=== PATIENT | female | born 1960 | race Caucasian/White ===

== ENCOUNTER → 2020-11-25 09:13 | Outpatient (BNVA) | payer OTHER, SELFPAY | PROVIDERS: PCP Internal Medicine; Visit Provider Hospitalist | DX: J96.11 Chronic respiratory failure with hypoxia (principal); J43.2 Centrilobular emphysema | CPT/HCPCS: 99202 ==

== ENCOUNTER 2020-12-15 10:55 | Outpatient (REF) | payer OTHER, SELFPAY ==
--- NOTE | 2020-12-15 17:33 | PFT_ITS ---
FLOWS: FEV1 of 29% of predicted at 0.80 L. FVC 19% of predicted at 3.16 L. FEV1 to FVC ratio of 0.25. Positive bronchodilator response. LUNG VOLUMES: Total lung capacity 102% of predicted at 5.47 L. Residual volume 147% of predicted at 3.12 L. Slow vital capacity 72% of predicted at 2.35 L. Expiratory reserve volume 120% of predicted at 1.11 L. Diffusion capacity is severely decreased. IMPRESSION: Very severe obstructive ventilatory defect with positive bronchodilator response. Increased residual volume suggests air trapping. Decreased diffusion capacity suggests emphysema. MD HANNAH Mccormick/MODL / [id number] MTDD
== END 2020-12-15 10:56 | disposition home or self-care (01) ==
LOC: HO.RESP 10:55
PROVIDERS: Visit Provider Hospitalist
DX: J43.2 Centrilobular emphysema (principal); R06.00 Dyspnea, unspecified
CPT/HCPCS: 94060; 94727; 94729

== ENCOUNTER 2020-12-29 13:20 | Outpatient (REF) | payer OTHER, SELFPAY ==
[2020-12-29 14:41] LABS: MANUAL DIFF FLAG NO
[2020-12-29 14:45] LABS: Basophils Absolute Auto 0.1 X10*3/uL (0.0-0.2); Basophils Percent Auto 0.9 % (0-2); Eosinophils Percent Auto 0.4 % (0-4); Hematocrit 43.5 % (37-47); Hemoglobin 14.7 g/dl (12.0-16.0); Imm Gran Abs Auto 0.03 X10*3/uL (0.00-0.03); Imm Gran Pct Auto 0.4 % (0.0-0.4); Lymphocytes Absolute Auto 0.6 X10*3/uL (1.2-4.9); Lymphocytes Percent Auto 7.4 % (20-40); Mean Corpuscular HGB Conc 33.8 g/dl (31.0-35.0); Mean Corpuscular Hemoglobin 33.2 pg (27.0-33.0); Mean Corpuscular Volume 98.2 fL (80-98); Mean Platelet Volume 9.1 fL (9.4-12.3); Monocytes Absolute Auto 0.3 X10*3/uL (0.1-1.2); Monocytes Percent Auto 3.5 % (2-11); Neutrophils Absolute Auto 6.7 X10*3/uL (2.0-8.3); Neutrophils Percent Auto 87.4 % (45-73); Platelet Count 361 X10*3/uL (160-400); Red Blood Count 4.43 X10*6/uL (4.20-5.50); Red Cell Distribution Width 11.9 % (11.0-16.0); White Blood Count 7.7 X10*3/uL (4.8-10.8)
[2020-12-29 15:03] LABS: Anion Gap 15 (12-20); Blood Urea Nitrogen 12 mg/dL (9-16); Carbon Dioxide 25 mmol/L (22-29); Chloride 101 mmol/L (96-108); Estimated Glomerular Filt Rate > 60; Glucose Random 125 mg/dL (60-115); Potassium 4.2 mmol/L (3.3-5.1); Sodium 137 mmol/L (135-145)
[2020-12-29 15:26] LABS: Erythrocyte Sedimentation Rate 1 MM/HR (0-20)
[2020-12-30 06:36] LABS: Theophylline 13.2
== END 2020-12-29 13:21 | disposition home or self-care (01) ==
LOC: HO.LAB 13:20
PROVIDERS: PCP Internal Medicine; Visit Provider Hospitalist
DX: J96.11 Chronic respiratory failure with hypoxia (principal); J43.2 Centrilobular emphysema
CPT/HCPCS: 36415; 80048; 80198; 85025; 85652; 99212

== ENCOUNTER → 2021-02-28 13:12 | Outpatient (BNVA) | payer OTHER, SELFPAY | PROVIDERS: PCP Internal Medicine; Visit Provider Hospitalist | DX: J96.11 Chronic respiratory failure with hypoxia (principal); J43.2 Centrilobular emphysema | CPT/HCPCS: 99212 ==

== ENCOUNTER 2021-03-21 14:08 | Outpatient (REF) | payer OTHER, SELFPAY | END 2021-03-21 14:09 | disposition home or self-care (01) | LOC: HO.LNP 14:08 | PROVIDERS: Visit Provider Hospitalist | DX: J43.2 Centrilobular emphysema (principal) | CPT/HCPCS: 87070; 87205 ==

== ENCOUNTER → 2021-05-02 13:45 | Outpatient (BNVA) | payer OTHER, SELFPAY | PROVIDERS: PCP Internal Medicine; Visit Provider Hospitalist | DX: J96.11 Chronic respiratory failure with hypoxia (principal); J43.2 Centrilobular emphysema | CPT/HCPCS: 90471; 90686; 99212 ==

== ENCOUNTER → 2021-06-22 09:47 | Outpatient (BNVA) | payer OTHER, SELFPAY | PROVIDERS: PCP Internal Medicine; Visit Provider Hospitalist | DX: J96.11 Chronic respiratory failure with hypoxia (principal); J43.2 Centrilobular emphysema; J47.9 Bronchiectasis, uncomplicated | CPT/HCPCS: 94010; 94618; 99212 ==

== ENCOUNTER 2021-06-26 16:38 | Outpatient (REF) | payer OTHER, SELFPAY | END 2021-06-26 16:39 | disposition home or self-care (01) | LOC: HO.LNP 16:38 | PROVIDERS: Visit Provider Hospitalist | DX: J47.9 Bronchiectasis, uncomplicated (principal) | CPT/HCPCS: 87070; 87205 ==

== ENCOUNTER 2021-07-12 10:42 | Outpatient (REF) | payer OTHER, SELFPAY ==
[2021-07-12 12:31] VITALS: O2SAT 95
[2021-07-12 12:48] LABS: ABG Refer to POC result
[2021-07-12 12:51] LABS: ABG pH 7.47 (7.35-7.45)
[2021-07-12 12:52] LABS: ABG Base Excess 0.4 mmol/L; ABG HCO3 23 mmol/L (22-26); ABG pCO2 31 mmHg (32-45); ABG pO2 78 mmHg (83-108)
== END 2021-07-12 10:43 | disposition home or self-care (01) ==
LOC: HO.LAB 10:42
PROVIDERS: PCP Internal Medicine; Visit Provider Hospitalist
DX: J43.2 Centrilobular emphysema (principal); J47.9 Bronchiectasis, uncomplicated; J96.11 Chronic respiratory failure with hypoxia; Z99.81 Dependence on supplemental oxygen; Z79.52 Long term (current) use of systemic steroids; Z87.891 Personal history of nicotine dependence
CPT/HCPCS: 36600; 82803; 96372; 99212; J2930

== ENCOUNTER 2021-07-14 14:22 | Outpatient (REF) | payer OTHER, SELFPAY ==
[2021-07-14 15:09] LABS: Basophils Percent Auto 0.2 % (0-2); Eosinophils Percent Auto 0.1 % (0-4); Hematocrit 47.3 % (37.0-47.0); Imm Gran Abs Auto 0.08 X10*3/uL (0.00-0.03); Imm Gran Pct Auto 0.7 % (0.0-0.4); Lymphocytes Absolute Auto 0.3 X10*3/uL (1.2-4.9); Lymphocytes Percent Auto 2.8 % (20-40); MANUAL DIFF FLAG SCAN; Mean Corpuscular HGB Conc 33.8 g/dl (31.0-35.0); Mean Corpuscular Volume 97.5 fL (80.0-98.0); Mean Platelet Volume 9.3 fL (9.4-12.3); Monocytes Absolute Auto 0.5 X10*3/uL (0.1-1.2); Monocytes Percent Auto 3.7 % (2-11); Neutrophils Absolute Auto 11.4 x10*3/uL (2.0-8.3); Neutrophils Percent Auto 92.5 % (45-73); Platelet Count 450 X10*3/uL (160-400); Red Blood Count 4.85 X10*6/uL (4.20-5.50); Red Cell Distribution Width 12.1 % (11.0-16.0); SCAN SMEAR FLAG 1; White Blood Count 12.3 X10*3/uL (4.8-10.8)
[2021-07-14 15:16] LABS: D Dimer High Sensitivity < 150 NG/ML
[2021-07-14 15:26] LABS: Troponin-I High Sensitivity 5.1 ng/L (<3.5-17.0)
[2021-07-14 15:32] LABS: SLIDE REVIEW VERIFIED
[2021-07-14 15:36] LABS: Anion Gap 17 (12-20); Blood Urea Nitrogen 9 mg/dL (9-16); Calcium 9.9 mg/dL (8.4-10.2); Carbon Dioxide 26 mmol/L (22-29); Chloride 96 mmol/L (96-108); Estimated Glomerular Filt Rate > 60; Glucose Random 175 mg/dL (60-115); Potassium 3.7 mmol/L (3.3-5.1); Sodium 135 mmol/L (135-145)
[2021-07-14 15:43] LABS: Erythrocyte Sedimentation Rate 2 MM/HR (0-20)
== END 2021-07-14 14:23 | disposition home or self-care (01) ==
LOC: HO.LAB 14:22
PROVIDERS: PCP Internal Medicine; Visit Provider Hospitalist
DX: J96.10 Chronic respiratory failure, unspecified whether with hypoxia or hypercapnia (principal)
CPT/HCPCS: 36415; 80048; 84484; 85025; 85379; 85652

== ENCOUNTER 2021-07-17 13:26 | Inpatient (IN) | payer OTHER, SELFPAY ==
--- NOTE | ~2021-07-17 | XR_ITS ---
EXAMINATION: XR CHEST CLINICAL INFORMATION: Shortness of breath COMPARISON: Previous chest x-ray 07/11/2021 TECHNIQUE: Frontal view of the chest was obtained. FINDINGS: The cardiac and mediastinal contours are normal. The lungs are well-inflated suggestive of COPD. There is question of retrosternal atelectasis or small infiltrate seen on the lateral view. The lungs are otherwise clear. There is no pleural effusion or pneumothorax. There are degenerative changes of the spine. There are old bilateral rib fractures that appear unchanged. XR/XR chest 1V IMPRESSION: Well-inflated lungs suggestive of COPD. Question retrosternal atelectasis or small infiltrate seen on the lateral view.
[2021-07-17 14:47] VITALS: BP 163/86; PULSE 121; RESP 17; TEMP 36.3; O2SAT 90; BMI 20.9
--- NOTE | 2021-07-17 14:59 | ECG_ITS ---
Test Reason : SOB Blood Pressure : / mmHG Vent. Rate : 118 BPM Atrial Rate : 118 BPM P-R Int : 136 ms QRS Dur : 078 ms QT Int : 332 ms P-R-T Axes : 078 079 082 degrees QTc Int : 465 ms Sinus tachycardia Cannot rule out Anterior infarct , age undetermined Abnormal ECG No previous ECGs available Referred By: Generic ED Physician Electronically Signed By:LIANA VAUGHAN MD
[2021-07-17 15:31] LABS: Basophils Percent Auto 0.2 % (0-2); Eosinophils Percent Auto 0.1 % (0-4); Hematocrit 48.4 % (37.0-47.0); Hemoglobin 16.8 g/dl (12.0-16.0); Imm Gran Abs Auto 0.09 X10*3/uL (0.00-0.03); Imm Gran Pct Auto 0.8 % (0.0-0.4); Lymphocytes Absolute Auto 0.3 X10*3/uL (1.2-4.9); Lymphocytes Percent Auto 2.2 % (20-40); MANUAL DIFF FLAG SCAN; Mean Corpuscular HGB Conc 34.7 g/dl (31.0-35.0); Mean Corpuscular Hemoglobin 32.9 pg (27.0-33.0); Mean Corpuscular Volume 94.9 fL (80.0-98.0); Mean Platelet Volume 9.3 fL (9.4-12.3); Monocytes Absolute Auto 0.1 X10*3/uL (0.1-1.2); Neutrophils Percent Auto 95.7 % (45-73); Platelet Count 415 X10*3/uL (160-400); Red Cell Distribution Width 11.6 % (11.0-16.0); SCAN SMEAR FLAG 1; White Blood Count 11.5 X10*3/uL (4.8-10.8)
[2021-07-17 15:46] LABS: Alanine Aminotransferase 13 U/L (0-31); Albumin Level 4.7 g/dL (3.5-5.0); Alkaline Phosphatase 73 U/L (39-117); Anion Gap 16 (12-20); Aspartate Amino Transferase 18 U/L (5-31); Bilirubin Total 0.5 mg/dL (0.0-1.0); Blood Urea Nitrogen 12 mg/dL (9-16); Calcium 10.6 mg/dL (8.4-10.2); Carbon Dioxide 27 mmol/L (22-29); Chloride 96 mmol/L (96-108); Creatinine Clr Calc Pharmacy 66.2; Estimated Glomerular Filt Rate > 60; Glucose Random 168 mg/dL (60-115); Sodium 135 mmol/L (135-145)
[2021-07-17 15:49] LABS: B Type Natriuretic Peptide 10 pg/mL (<100)
[2021-07-17 15:51] LABS: SLIDE REVIEW VERIFIED
--- NOTE | 2021-07-17 17:59 | ED.SOB ---
HPI - SOB/Dyspnea General Chief Complaint: Dyspnea Stated Complaint: diff breathing Source: patient Mode of arrival: ambulatory Limitations: no limitations History of Present Illness HPI Narrative: 61-year-old female presents with COPD exacerbation, increased shortness breath on ambulation, hypoxia at home. Patient has been on antibiotics prescribed by Dr. Cunningham, was on azithromycin every other day Saturday and Saturday, then switched to Levaquin. Patient's symptoms have worsened. MD elicited complaint: shortness of breath and cough Pertinent past history: COPD Onset (ago): month(s) Context: recent illness Timing: constant Severity: moderate Exacerbating factors: lying flat, exertion, movement, coughing and deep breaths Relieving factors: nothing Known history of: COPD and recurrent pneumonia Associated symptoms: cough, wheezing, sputum production, orthopnea and palpitations Treatment prior to arrival: oxygen Related Data Home oxygen amount: 2 liters Home Medications Medication Instructions Recorded Confirmed alendronate 35 mg tablet 35 mg PO QWEEK 11/25/20 07/17/21 amlodipine 10 mg tablet 10 mg PO DAILY 11/25/20 07/17/21 bupropion HCl 300 mg 24 hr tablet, 300 mg PO DAILY 11/25/20 07/17/21 extended release omeprazole 20 mg capsule,delayed 20 mg PO DAILY 11/25/20 07/17/21 release Previous Rx's Medication Instructions Recorded albuterol sulfate 90 mcg/actuation 2 puff INHALATION Q6H PRN 90 Days 03/15/21 aerosol inhaler #3 ea budesonide 0.5 mg/2 mL suspension 0.5 mg (2 mL) INHALATION BID 90 03/15/21 for nebulization Days #360 ml ipratropium 0.5 mg-albuterol 3 mg 3 ml INHALATION QID 90 Days #1080 03/15/21 (2.5 mg base)/3 mL nebulization ml soln theophylline 300 mg 300 mg PO Q12H 90 Days #180 tab 03/15/21 tablet,extended release,12 hr tiotropium bromide 2.5 2 puff INHALATION DAILY 90 Days #3 03/15/21 mcg/actuation mist for inhalation ea prednisone 20 mg tablet See Rx Instructions PO DAILY 10 07/13/21 Days #15 tab Allergies Allergy/AdvReac Type Severity Reaction Status Date / Time No Known Allergies Allergy Verified 07/12/21 11:10 Review of Systems Review of Systems: Constitutional: No Fever, No Chills ENT/Mouth: No sore throat, No Rhinorrhea, No Swallowing Difficulty Eyes: No Eye Pain, No Swelling, No Redness Cardiovascular: No Chest Pain, positive SOB, No Orthopnea, no Edema Respiratory: Positive Cough, positive Sputum, positive Wheezing, positive dyspnea Gastrointestinal: No Nausea, No Vomiting, No Diarrhea, No abdominal Pain, No Hematochezia, No Melena Genitourinary: No Dysuria, No Urinary Frequency, No Hematuria Musculoskeletal: No joint pain, No Myalgias Skin: No Skin Lesions, No rash Neuro: No Weakness, No Numbness, No Dizziness, No Headache Psych: No Anxiety/Panic, No Depression Heme/Lymph: No Bruising, No Lymphadenopathy Endocrine: No Polyuria, No Polydipsia Yes all other systems are reviewed and are negative [facility] Past Medical History Attestation statement: The following information was validated with the patient. Source: old records reviewed Medical History Bronchiectasis Chronic respiratory failure COPD (chronic obstructive pulmonary disease) Social History Social History Alcohol intake: current Alcohol intake frequency: 3 or more drinks per day Alcohol type: beer Patient Tobacco Use Status: Former Tobacco user Tobacco use type: Cigarette Years Smoked: 30 years Use of substances other than those prescribed or required for medical reasons: No Advance Directives: No Advance Directives Information Provided: Yes Physical Exam Vital Signs: Vital Signs: Last Vital Signs Temp 97.4 F 07/17/21 14:47 Pulse 112 H 07/17/21 19:12 Resp 18 07/17/21 19:12 BP 159/90 H 07/17/21 19:12 Pulse Ox 98 07/17/21 19:12 BMI result Body Mass Index 20.9 Appearance: Alert. Oriented X3. Moderate respiratory distress. Eyes: Pupils equal, round and reactive to light. EOMI. Sclera nonicteric. ENT: Pharynx normal. Dry mucous membranes. Neck: Normal inspection. Neck supple. CVS: Tachycardic heart rate and rhythm. Pulses normal. Respiratory: Moderate respiratory distress. Diminished lung sounds throughout with poor air flow, expiratory scattered wheezes Abdomen: Soft and nontender. Skin: Skin warm and dry. Normal skin color. Normal skin turgor. Scarring noted to forehead and bridge of nose from basal cell carcinoma resection. Extremities: No lower extremity edema. Gait well-balanced well coordinated. Neuro: No motor deficit. No sensory deficit. Cranial nerves 2-12 intact Course Course Course Narrative: 61-year-old female presents with COPD exacerbation. This patient has been followed closely by Dr. Cunningham pulmonary, has been on azithromycin Saturday and Saturday and p.o. prednisone on days not taking azithromycin. Symptoms have exacerbated over the past month, patient was switched from azithromycin to Levaquin however does not feel that the Levaquin has helped her shortness of breath and sputum production. I did reach out to Dr. Cunningham, he confirms that she has been failing outpatient treatments. He feels that she could have a component of cor pulmonale and would like her to get an echo. He did look at the chest x-ray that was completed today and compared to her prior and the CT scan that she had at [facility]. Dr. Cunningham not feel that she needs repeat CT scan at time. Order for Solu-Medrol 125 mg, albuterol hour long updraft, ceftriaxone, and 2 L of fluid for suspected dehydration as H&H is elevated along with white count. 19:45 discussion with hospitalist, plan of care is to admit for COPD exacerbation and pneumonia. Consultations Consultation #1: servando Cunningham Time: 18:02 Consultation #2: ann Time: 19:45 MDM - SOB/Dyspnea Differential Diagnosis Differential diagnosis: Likely acute exacerbation of chronic obstructive airways disease, congestive heart failure, pneumonia, asthma with exacerbation, pleural effusion and anemia Medical Records Attestation: I reviewed the patient's medical records. Lab Data Attestation: I reviewed the patient's lab results. Result diagrams: 07/17/21 15:19 07/17/21 15:19 Labs: Lab Results 07/17/21 07/17/21 07/17/21 Range/Units 15:19 15:19 15:19 WBC 11.5 H (4.8-10.8) X10*3/uL RBC 5.10 (4.20-5.50) X10*6/uL Hgb 16.8 H (12.0-16.0) g/dl Hct 48.4 H (37.0-47.0) % MCV 94.9 (80.0-98.0) fL MCH 32.9 (27.0-33.0) pg MCHC 34.7 (31.0-35.0) g/dl RDW 11.6 (11.0-16.0) % Plt Count 415 H (160-400) X10*3/uL MPV 9.3 L (9.4-12.3) fL Immature Gran % (Auto) 0.8 H (0.0-0.4) % Neut % (Auto) 95.7 H (45-73) % Lymph % (Auto) 2.2 L (20-40) % [place] % (Auto) 1.0 L (2-11) % Eos % (Auto) 0.1 (0-4) % Baso % (Auto) 0.2 (0-2) % Lymph # (Auto) 0.3 L (1.2-4.9) X10*3/uL [place] # (Auto) 0.1 (0.1-1.2) X10*3/uL Eos # (Auto) 0.0 (0.0-0.4) X10*3/uL Baso # (Auto) 0.0 (0.0-0.2) X10*3/uL Abs Immat Gran (auto) 0.09 H (0.00-0.03) X10*3/uL Absolute Neuts (auto) 11.0 H (2.0-8.3) x10*3/uL Absolute Nucleated RBC 0.000 (0.0-0.012) X10*3/uL Nucleated RBC % (auto) 0.0 (0.0-0.2) /100WBC Smear Tech's Comments VERIFIED Sodium 135 (135-145) mmol/L Potassium 4.0 (3.3-5.1) mmol/L Chloride 96 (96-108) mmol/L Carbon Dioxide 27 (22-29) mmol/L Anion Gap 16 (12-20) BUN 12 (9-16) mg/dL Creatinine 0.82 (0.5-1.4) mg/dL Estim Creat Clear Calc 66.2 Estimated GFR > 60 Random Glucose 168 H (60-115) mg/dL Lactic Acid (0.5-2.0) mmol/L Calcium 10.6 H D (8.4-10.2) mg/dL Magnesium (1.6-2.6) mg/dL Total Bilirubin 0.5 (0.0-1.0) mg/dL AST 18 (5-31) U/L ALT 13 (0-31) U/L Alkaline Phosphatase 73 (39-117) U/L Troponin I High Sens (<3.5-17.0) ng/L B-Natriuretic Peptide 10 (<100) pg/mL Total Protein 8.0 (6.5-8.0) g/dL Albumin 4.7 (3.5-5.0) g/dL Influenza Type A (PCR) (Negative) Influenza Type B (PCR) (Negative) RSV RNA Qual (PCR) (Negative) SARS-CoV-2 RNA (RT-PCR) (Negative) 07/17/21 07/17/21 07/17/21 Range/Units 18:52 18:52 18:52 WBC (4.8-10.8) X10*3/uL RBC (4.20-5.50) X10*6/uL Hgb (12.0-16.0) g/dl Hct (37.0-47.0) % MCV (80.0-98.0) fL MCH (27.0-33.0) pg MCHC (31.0-35.0) g/dl RDW (11.0-16.0) % Plt Count (160-400) X10*3/uL MPV (9.4-12.3) fL Immature Gran % (Auto) (0.0-0.4) % Neut % (Auto) (45-73) % Lymph % (Auto) (20-40) % [place] % (Auto) (2-11) % Eos % (Auto) (0-4) % Baso % (Auto) (0-2) % Lymph # (Auto) (1.2-4.9) X10*3/uL [place] # (Auto) (0.1-1.2) X10*3/uL Eos # (Auto) (0.0-0.4) X10*3/uL Baso # (Auto) (0.0-0.2) X10*3/uL Abs Immat Gran (auto) (0.00-0.03) X10*3/uL Absolute Neuts (auto) (2.0-8.3) x10*3/uL Absolute Nucleated RBC (0.0-0.012) X10*3/uL Nucleated RBC % (auto) (0.0-0.2) /100WBC Smear Tech's Comments Sodium (135-145) mmol/L Potassium (3.3-5.1) mmol/L Chloride (96-108) mmol/L Carbon Dioxide (22-29) mmol/L Anion Gap (12-20) BUN (9-16) mg/dL Creatinine (0.5-1.4) mg/dL Estim Creat Clear Calc Estimated GFR Random Glucose (60-115) mg/dL Lactic Acid 2.2 H* (0.5-2.0) mmol/L Calcium (8.4-10.2) mg/dL Magnesium 2.0 (1.6-2.6) mg/dL Total Bilirubin (0.0-1.0) mg/dL AST (5-31) U/L ALT (0-31) U/L Alkaline Phosphatase (39-117) U/L Troponin I High Sens 5.0 (<3.5-17.0) ng/L B-Natriuretic Peptide (<100) pg/mL Total Protein (6.5-8.0) g/dL Albumin (3.5-5.0) g/dL Influenza Type A (PCR) (Negative) Influenza Type B (PCR) (Negative) RSV RNA Qual (PCR) (Negative) SARS-CoV-2 RNA (RT-PCR) (Negative) 07/17/21 Range/Units 19:16 WBC (4.8-10.8) X10*3/uL RBC (4.20-5.50) X10*6/uL Hgb (12.0-16.0) g/dl Hct (37.0-47.0) % MCV (80.0-98.0) fL MCH (27.0-33.0) pg MCHC (31.0-35.0) g/dl RDW (11.0-16.0) % Plt Count (160-400) X10*3/uL MPV (9.4-12.3) fL Immature Gran % (Auto) (0.0-0.4) % Neut % (Auto) (45-73) % Lymph % (Auto) (20-40) % [place] % (Auto) (2-11) % Eos % (Auto) (0-4) % Baso % (Auto) (0-2) % Lymph # (Auto) (1.2-4.9) X10*3/uL [place] # (Auto) (0.1-1.2) X10*3/uL Eos # (Auto) (0.0-0.4) X10*3/uL Baso # (Auto) (0.0-0.2) X10*3/uL Abs Immat Gran (auto) (0.00-0.03) X10*3/uL Absolute Neuts (auto) (2.0-8.3) x10*3/uL Absolute Nucleated RBC (0.0-0.012) X10*3/uL Nucleated RBC % (auto) (0.0-0.2) /100WBC Smear Tech's Comments Sodium (135-145) mmol/L Potassium (3.3-5.1) mmol/L Chloride (96-108) mmol/L Carbon Dioxide (22-29) mmol/L Anion Gap (12-20) BUN (9-16) mg/dL Creatinine (0.5-1.4) mg/dL Estim Creat Clear Calc Estimated GFR Random Glucose (60-115) mg/dL Lactic Acid (0.5-2.0) mmol/L Calcium (8.4-10.2) mg/dL Magnesium (1.6-2.6) mg/dL Total Bilirubin (0.0-1.0) mg/dL AST (5-31) U/L ALT (0-31) U/L Alkaline Phosphatase (39-117) U/L Troponin I High Sens (<3.5-17.0) ng/L B-Natriuretic Peptide (<100) pg/mL Total Protein (6.5-8.0) g/dL Albumin (3.5-5.0) g/dL Influenza Type A (PCR) NEGATIVE (Negative) Influenza Type B (PCR) NEGATIVE (Negative) RSV RNA Qual (PCR) NEGATIVE (Negative) SARS-CoV-2 RNA (RT-PCR) NEGATIVE (Negative) Imaging Data Chest x-ray: Attestation: I personally reviewed and interpreted this imaging study as follows: Radiologist's impression: EXAMINATION: XR CHEST CLINICAL INFORMATION: Shortness of breath COMPARISON: Previous chest x-ray 07/11/2021 TECHNIQUE: Frontal view of the chest was obtained. FINDINGS: The cardiac and mediastinal contours are normal. The lungs are well-inflated suggestive of COPD. There is question of retrosternal atelectasis or small infiltrate seen on the lateral view. The lungs are otherwise clear. There is no pleural effusion or pneumothorax. There are degenerative changes of the spine. There are old bilateral rib fractures that appear unchanged. XR/XR chest 1V IMPRESSION: Well-inflated lungs suggestive of COPD. Question retrosternal atelectasis or small infiltrate seen on the lateral view. ECG Data Attestation: I personally reviewed and interpreted this ECG as follows: ECG interpretation date: 07/17/21 ECG interpretation time: 15:02 Prior ECG tracings: not available for review Interpretation: Vent. rate 118 BPM [place] interval 136 ms QRS duration 78 ms QT/QTc 332/465 ms P-R-T axes 78 79 82 Sinus tachycardia Cannot rule out Anterior infarct , age undetermined Abnormal ECG No previous ECGs available Critical Care Time Critical Care Time Critical Care Time: Yes Total Critical Care Time: 45 Attestation: I have personally provided critical care time exclusive of time spent on separately billable procedures. Time includes review of laboratory data, radiology results, discussion with consultants, and monitoring for potential decompensation. Interventions were performed as documented. Discharge Plan Discharge Clinical Impression: Acute exacerbation of chronic obstructive airways disease, Pneumonia Patient Disposition: Admitted As Inpatient
[2021-07-17 18:00] VITALS: BP 196/101; PULSE 104; RESP 18; O2SAT 96
[2021-07-17] MEDS: Albuterol Sulfate (0.083%) 2.5 MG/3 ML VIAL.NEB 10 MG INHALE (18:20)
[2021-07-17 18:21] VITALS: PULSE 98; RESP 20; O2SAT 97
[2021-07-17] MEDS: methylPREDNISolone Sod Succ 125 MG/2 ML VIAL IVPUSH (19:11)
[2021-07-17] MEDS: cefTRIAXone sodium 1 GM in 0.9 % Sodium Chloride 50 ML IV (19:11)
[2021-07-17 19:12] VITALS: BP 159/90; PULSE 112; RESP 18; O2SAT 98
[2021-07-17 19:12] LABS: Lactic Acid 2.2 mmol/L (0.5-2.0)
[2021-07-17] MEDS: 0.9 % Sodium Chloride 1,000 ML 999 ML IVCONT ×2 (19:12→21:05)
[2021-07-17 19:59] LABS: Influenza A PCR NEGATIVE (Negative); Influenza B PCR NEGATIVE (Negative); Resp Syncy Virus RNA Qual PCR NEGATIVE (Negative); SARS COV2 PCR INHOUSE NEGATIVE (Negative)
--- NOTE | 2021-07-17 20:29 | PHA.MEDREC ---
Pharmacy Consult ? Medication Reconciliation Pharmacy has completed the medication reconciliation. spoke with pt. was on azithromycin MWF but stopped it appx 3 weeks ago while was on other antibiotics doxycycline and levaquin
[2021-07-17 20:55] LABS: Reflex Lactate? Lactic Acid Added
[2021-07-17] MEDS: Enoxaparin Sodium 40 MG/0.4 ML SYRINGE SUBCUT (21:10)
[2021-07-17 21:28] LABS: ~Lactic Acid-LAB USE ONLY 1.9 mmol/L (0.5-2.0)
--- NOTE | 2021-07-17 22:20 | PM.IMHP ---
History of Present Illness Date of Service: 07/17/21 Chief Complaint: SOB 61-year-old female with a past medical history of hypertension, osteoporosis, COPD, chronic respiratory failure on 2 L of home oxygen intermittently/on exertion; anxiety, depression; presented to the hospital today with a chief complaint of shortness of breath. Patient reports that over the past 1 month she has been having shortness of breath which has been gradually worsening more so on exertion. Has been following with Dr. Cunningham as outpatient who has been giving her steroids, also finished course of Levaquin and doxycycline with no significant improvement. And over the past 1-2 years she has been having shortness of breath even with minimal exertion and has been using more oxygen than her baseline hence decided to come to the ER for further evaluation. Patient reports that she takes azithromycin on Saturday, also on chronic prednisone. Denies any chest pain or palpitations. Reports cough with greenish sputum. Denies any fevers. Denies any numbness tingling or focal weakness. Denies any chest pain or palpitations. Review of all other systems is negative except mentioned above ER course: Per ER team-patient reported to be saturating in 80s on room air upon arrival by the EMS; on presentation noted to have diminished lung sounds; placed on supplemental oxygen; given a nebulizations and steroids. Patient was also given antibiotics for possible pneumonia the chest x-ray. Admitted to the hospital for further management. [facility] Medical History Bronchiectasis Chronic respiratory failure COPD (chronic obstructive pulmonary disease) Pertinent family history: Reviewed Social History Alcohol intake: current Alcohol intake frequency: 3 or more drinks per day Alcohol type: beer Patient Tobacco Use Status: Former Tobacco user Tobacco use type: Cigarette Years Smoked: 30 years Use of substances other than those prescribed or required for medical reasons: No Advance Directives: No Advance Directives Information Provided: Yes Meds Allergies Allergy/AdvReac Type Severity Reaction Status Date / Time No Known Allergies Allergy Verified 07/12/21 11:10 Active Medications: Current Medications Acetaminophen (Acetaminophen 325 Mg Tablet) 650 mg PO Q6H PRN PRN Reason: Pain, Mild (Pain Scale 1-3) Albuterol/Ipratropium (Albuterol/Iprat 2.5/0.5mg 3 Ml Ampul.Neb) 3 ml INHALE RQ4H WHILE AWAKE [facility] Last Admin: 07/17/21 20:17 Dose: Not Given Documented by: Albuterol/Ipratropium (Albuterol/Iprat 2.5/0.5mg 3 Ml Ampul.Neb) 3 ml INHALE Q4H PRN PRN Reason: Shortness of Breath/Wheezing Amlodipine Besylate (Amlodipine Besylate 10 Mg Tablet) 10 mg PO DAILY [facility]; Protocol Bupropion HCl (Bupropion Hcl Xl 300 Mg Tab.Er.24h) 300 mg PO DAILY [facility] Enoxaparin Sodium (Enoxaparin Sodium 40 Mg/0.4 Ml Syringe) 40 mg SUBCUT Q24H [facility] Last Admin: 07/17/21 21:10 Dose: 40 mg Documented by: Ceftriaxone Sodium 1 gm/ (Sodium Chloride) 100 mls @ 200 mls/hr IV Q24H [facility] Doxycycline Hyclate 100 mg/ (Sodium Chloride) 250 mls @ 166.67 mls/hr IV Q12H [facility] Last Admin: 07/17/21 21:10 Dose: 166.67 mls/hr Documented by: Melatonin (Melatonin 3 Mg Tablet) 6 mg PO BEDTIME PRN PRN Reason: Insomnia Methylprednisolone Sodium Succinate (Methylprednisolone Sod Succ 40 Mg/Ml Vial) 40 mg IVPUSH Q6H [facility] Omeprazole (Omeprazole 20 Mg Capsule.Dr) 20 mg PO DAILY@0630 [facility] Senna (Sennosides 8.6 Mg Tablet) 17.2 mg PO BEDTIME PRN PRN Reason: Constipation Sodium Chloride (0.9 % Sodium Chloride Flush 3 Ml Syringe) 3 ml IVFLUSH QSHIFT [facility] Theophylline (Theophylline Anhydrous Er 300 Mg Tab.Er.12h) 300 mg PO Q12H [facility] Home Medications Medication Instructions Recorded Confirmed Last Taken Type alendronate 35 mg tablet 35 mg PO QWEEK 11/25/20 07/17/21 07/16/21 History amlodipine 10 mg tablet 10 mg PO DAILY 11/25/20 07/17/21 Unknown History bupropion HCl 300 mg 24 hr tablet, 300 mg PO DAILY 11/25/20 07/17/21 Unknown History extended release omeprazole 20 mg capsule,delayed 20 mg PO DAILY 11/25/20 07/17/21 Unknown History release Physical Exam Vital Signs and Narrative: Vital Signs: Last Vital Signs Temp 97.4 F 07/17/21 14:47 Pulse 112 H 07/17/21 19:12 Resp 18 07/17/21 19:12 BP 159/90 H 07/17/21 19:12 Pulse Ox 98 07/17/21 19:12 BMI result Body Mass Index 20.9 Gen: Appears be in no acute distress. On supplemental oxygen. Saturating 94-96% on 1-2 L. spoke to RN to give the goal saturation at 94%. Speaks in full sentences HEENT: NCAT, Moist mucosa. Pulmonary: Diminished breath sounds bilaterally CVS: Normal S1-S2 Abdomen: BS+, Soft, Nontender Extremities: Warm well perfused Neuro: Alert and awake. Results Labs CBC and Chem 7: 07/17/21 15:19 07/17/21 15:19 Labs: Laboratory Results - last 24 hr 07/17/21 07/17/21 07/17/21 15:19 15:19 15:19 MCV 94.9 MCH 32.9 MCHC 34.7 RDW 11.6 Plt Count 415 H MPV 9.3 L Immature Gran % (Auto) 0.8 H Neut % (Auto) 95.7 H Lymph % (Auto) 2.2 L [place] % (Auto) 1.0 L Eos % (Auto) 0.1 Baso % (Auto) 0.2 Lymph # (Auto) 0.3 L [place] # (Auto) 0.1 Eos # (Auto) 0.0 Baso # (Auto) 0.0 Abs Immat Gran (auto) 0.09 H Absolute Neuts (auto) 11.0 H Absolute Nucleated RBC 0.000 Nucleated RBC % (auto) 0.0 Smear Tech's Comments VERIFIED Anion Gap 16 Estim Creat Clear Calc 66.2 Estimated GFR > 60 Random Glucose 168 H Lactic Acid Lactic Acid F/U @ 2Hr Calcium 10.6 H D Magnesium Total Bilirubin 0.5 AST 18 ALT 13 Alkaline Phosphatase 73 B-Natriuretic Peptide 10 Total Protein 8.0 Albumin 4.7 Influenza Type A (PCR) Influenza Type B (PCR) RSV RNA Qual (PCR) SARS-CoV-2 RNA (RT-PCR) 07/17/21 07/17/21 07/17/21 18:52 18:52 19:16 MCV MCH MCHC RDW Plt Count MPV Immature Gran % (Auto) Neut % (Auto) Lymph % (Auto) [place] % (Auto) Eos % (Auto) Baso % (Auto) Lymph # (Auto) [place] # (Auto) Eos # (Auto) Baso # (Auto) Abs Immat Gran (auto) Absolute Neuts (auto) Absolute Nucleated RBC Nucleated RBC % (auto) Smear Tech's Comments Anion Gap Estim Creat Clear Calc Estimated GFR Random Glucose Lactic Acid 2.2 H* Lactic Acid F/U @ 2Hr Calcium Magnesium 2.0 Total Bilirubin AST ALT Alkaline Phosphatase B-Natriuretic Peptide Total Protein Albumin Influenza Type A (PCR) NEGATIVE Influenza Type B (PCR) NEGATIVE RSV RNA Qual (PCR) NEGATIVE SARS-CoV-2 RNA (RT-PCR) NEGATIVE 07/17/21 21:13 MCV MCH MCHC RDW Plt Count MPV Immature Gran % (Auto) Neut % (Auto) Lymph % (Auto) [place] % (Auto) Eos % (Auto) Baso % (Auto) Lymph # (Auto) [place] # (Auto) Eos # (Auto) Baso # (Auto) Abs Immat Gran (auto) Absolute Neuts (auto) Absolute Nucleated RBC Nucleated RBC % (auto) Smear Tech's Comments Anion Gap Estim Creat Clear Calc Estimated GFR Random Glucose Lactic Acid Lactic Acid F/U @ 2Hr 1.9 Calcium Magnesium Total Bilirubin AST ALT Alkaline Phosphatase B-Natriuretic Peptide Total Protein Albumin Influenza Type A (PCR) Influenza Type B (PCR) RSV RNA Qual (PCR) SARS-CoV-2 RNA (RT-PCR) Imaging Radiologist's Impressions: Impressions Chest X-Ray 07/17/21 15:28 IMPRESSION: Well-inflated lungs suggestive of COPD. Question retrosternal atelectasis or small infiltrate seen on the lateral view. Assessment and Plan Plan 61-year-old female with a past medical history of hypertension, osteoporosis, COPD, chronic respiratory failure on 2 L of home oxygen intermittently/on exertion; anxiety, depression; presented to the hospital today with a chief complaint of shortness of breath/cough with greenish sputum, dyspnea on exertion, hypoxia. Noted to be in COPD exacerbation/pneumonia. Admitted for further management. Acute on chronic COPD exacerbation: Solu-Medrol IV Nebulizations standing and p.r.n. Supplemental oxygen with goal oxygen saturation at 93-94% Patient currently not in respiratory distress. Pulmonology consult with Dr. Octavio Zach D-dimer was negative EKG nonischemic Troponin negative Pneumonia: Patient on chronic steroids at home, failed outpatient antibiotic therapy. Will give the patient on IV vanc and Zosyn. Id consult History of hypertension: Continue home amlodipine History of depression: Continue home probably on DVT prophylaxis: Lovenox Code status: Full code Quality Stroke Does the patient have a stroke diagnosis?: No VTE Prior VTE?: No VTE Risk Level:: Medical - moderate - high VTE Device Contraindication: Treatment Not Indicated VTE Drug Contraindication: N/A - Med Ordered
[2021-07-17 22:25] VITALS: BP 165/96; PULSE 97; RESP 22; O2SAT 96
[2021-07-17] MEDS: Theophylline Anhydrous ER 300 MG TAB.ER.12H PO (22:26)
--- NOTE | 2021-07-17 22:37 | PHA.PROG ---
Admission Date/Time: July 17, 2021 19:44 Indication: COPD excaerbation/PNA Weight in k.967 kg Adjusted body weight in K.1 kg [place] body weight in K.3 kg Obesity Dosing Indication % IBW: N/A Serum Creatinine - Last 168 Hours 07/17/21 15:19 Creatinine 0.82 Estimated CrCl and GFR - Last 168 Hours 07/17/21 15:19 Estim Creat Clear Calc 66.2 Estimated GFR > 60 Vancomycin Loading Dose: 1250 mg Current Vancomycin Dosing Regimen: 750 mg Q12H Date and Time for next Vancomycin Level to be drawn: 07/19 @ 0800 Pharmacist Comments on Vancomycin Plan: Start with vancomycin 1250 mg load dose on 07/17 @ 2230 Maintenance dose vancoymcin 750 mg Q12H will being on 07/18 @ 1000. Expected AUC 523 with a trough of 16.9 Trough to be drawn prior to 3rd dose Pharmacy will monitor renal function daily Kimmy Cook PharmD Vancomycin dosing will take advantage of [employer] as a clinical decision support tool that uses Bayesian modeling to calculate individual patient's pharmacokinetic parameters and forecast the patient's drug concentration time course with the target goal AUC 24 range of 400 - 600 mg/L/hr.
[2021-07-17] MEDS: vancomycin HCL 1,250 MG in 0.9 % Sodium Chloride 250 ML 166.67 MG IV (23:24)
[2021-07-18] VITALS (12 sets, daily range): BP systolic 133–171; BP diastolic 65–93; PULSE 84–104; RESP 14–24; TEMP 36.3–37.3; O2SAT 92–98
[2021-07-18] MEDS: Piperacillin Sodium/Tazobactam 3.375 GM in 0.9 % Sodium Chloride 50 ML IV ×3 (01:03→12:42)
[2021-07-18 01:34] LABS: Appearance Urine CLEAR; Color Urine YELLOW; Glucose Urine UA NEG (NEG); Leukocyte Esterase Urine NEG (NEG); Nitrite Urine NEG (NEG); Urine Blood NEG (NEG); Urine Ketones NEG (NEG); Urine Protein NEG (NEG-TRACE)
[2021-07-18] MEDS: amLODIPine Besylate 10 MG TABLET PO ×2 (04:57→07:17)
--- NOTE | 2021-07-18 04:58 | PC.NURSE ---
PT has become increasingly more hypertensive throughout the night. Hospitalist notified and this RN instructed to give 0900 dose of amlodipine now.
[2021-07-18] MEDS: Omeprazole 20 MG CAPSULE.DR PO (06:16)
[2021-07-18] MEDS: Theophylline Anhydrous ER 300 MG TAB.ER.12H PO ×2 (07:17→20:32)
[2021-07-18] MEDS: methylPREDNISolone Sod Succ 40 MG/ML VIAL IVPUSH ×3 (07:17→20:32)
[2021-07-18] MEDS: buPROPion HCl XL 300 MG TAB.ER.24H PO (07:17)
[2021-07-18 07:57] LABS: Basophils Percent Auto 0.1 % (0-2); Hematocrit 42.1 % (37.0-47.0); Hemoglobin 14.3 g/dl (12.0-16.0); Imm Gran Pct Auto 0.8 % (0.0-0.4); Lymphocytes Absolute Auto 0.4 X10*3/uL (1.2-4.9); Lymphocytes Percent Auto 3.3 % (20-40); MANUAL DIFF FLAG SCAN; Mean Corpuscular Hemoglobin 33.4 pg (27.0-33.0); Mean Corpuscular Volume 98.4 fL (80.0-98.0); Mean Platelet Volume 8.9 fL (9.4-12.3); Monocytes Absolute Auto 0.5 X10*3/uL (0.1-1.2); Monocytes Percent Auto 3.6 % (2-11); Neutrophils Absolute Auto 11.4 x10*3/uL (2.0-8.3); Neutrophils Percent Auto 92.2 % (45-73); Platelet Count 377 X10*3/uL (160-400); Red Blood Count 4.28 X10*6/uL (4.20-5.50); Red Cell Distribution Width 11.9 % (11.0-16.0); SCAN SMEAR FLAG 1; White Blood Count 12.4 X10*3/uL (4.8-10.8)
[2021-07-18] MEDS: Albuterol/Iprat 2.5/0.5MG 3 ML AMPUL.NEB INHALE ×4 (07:58→19:10)
--- NOTE | 2021-07-18 08:06 | PC.NURSE ---
report taken from ismael pastrana resp at bedside for breathing tx, no pain or distress noted on first contact, rr even/unlabored on 1 l. pt self transferred to commode on room air, desat to 86%. briskly back to 95% w rest and 1l. took po meds w/o issue, medicated per emar. ate breakfast. denies cp/sob att. awaiting inpt bed assignment.
[2021-07-18 08:13] LABS: Anion Gap 15 (12-20); Blood Urea Nitrogen 6 mg/dL (9-16); Calcium 8.4 mg/dL (8.4-10.2); Carbon Dioxide 24 mmol/L (22-29); Chloride 100 mmol/L (96-108); Creatinine Clr Calc Pharmacy 74.4; Estimated Glomerular Filt Rate > 60; Glucose Random 141 mg/dL (60-115); Potassium 3.5 mmol/L (3.3-5.1); Sodium 135 mmol/L (135-145)
[2021-07-18 08:20] LABS: SLIDE REVIEW VERIFIED
--- NOTE | 2021-07-18 08:22 | MHC.CM.PN ---
PT REPORTS SHE LIVES AT HOME WITH HER AND IS INDEPENDENT WITH CARE PT HAS HOME OXYGEN AND A NEBULIZER, SHE USES BOTH PRN PT HAS NO HOME/COMMUNITY SERVICES PT CONFIRMS HER PCP IS JUAN ANTONIO BILL PT STATES SHE DOES HAVE A HCP AND HER IS HER AGENT, COPY REQUESTED PT REPORTS SHE HAS RECEIVED THE [employer] VACCINES AGAINST COVID-19 X 3. CURRENT DC PLAN IS HOME WITH NO SERVICES. PT WILL SELF ARRANGE TRANSPORT
--- NOTE | 2021-07-18 09:38 | PM.CNPUL ---
History of Present Illness History of Present Illness Consult date: 07/18/21 Reason for consult: dyspnea, cough, COPD and hypoxemia Chief complaint: Hypoxia Narrative: I have seen this patient this morning for pulmonary consultation and recommendation. She is 61 years old female with advanced chronic obstructive pulmonary disease for the past many years. She presents to the emergency room with the increasing shortness of breath, cough, greenish phlegm, but no fever or chills, along with increased generalized weakness. This patient is on almost maximum treatment at home including, inhaled bronchodilators, inhaled corticosteroids, oral prednisone, azithromycin seen 3 times a week, And oxygen. She has been treated with intermittent courses of broad-spectrum antibiotics. Patient follows up with Dr. Cunningham, last seen on 07/12/2013 , advised to continue her regular meds. Blood gases the on that visit of or as follows pH 7.47 pCO2 31 and PO2 of 78. At home she is on O2 2 L/minute but can increase the flow as she needs. Currently she is on prednisone 7.5 mg on alternate days, azithromycin 250 on Saturday and Saturday, Budesonide 0.5 mg in nebulizer b.i.d., DuoNeb updrafts Q 6 hours while awake, and p.r.n. Recently treated with a course of Levaquin and doxycycline. Patient has history of smoking but quit about 3 years ago. She has associated comorbidities including hypertension, osteoporosis, anxiety and depression. Review of Systems Review of Systems: Yes all other systems are reviewed and are negative Constitutional: Constitutional: Reports lethargy and Reports weight loss Eyes: Eyes: Reports no additional eye complaints ENT: Reports system reviewed and no additional complaints, except as documented Cardiovascular: Cardiovascular: Denies chest pain, Denies irregular heart rhythm and Denies leg edema Respiratory: Respiratory: Reports as per HPI Gastrointestinal: Gastrointestinal: Reports no additional gastrointestinal complaints Genitourinary: Genitourinary: Reports no additional female genitourinary complaints Musculoskeletal: Musculoskeletal: Reports atrophy Integumentary/Breasts: Skin/Breast: Reports system reviewed and no additional complaints, except as docu Neurologic: Reports system reviewed and no additional complaints, except as documented Psychiatric: Psychiatric: Reports anxiety and Reports depression [facility] Past Medical History Medical History Bronchiectasis Chronic respiratory failure COPD (chronic obstructive pulmonary disease) Social History Social History Alcohol intake: current Alcohol intake frequency: 3 or more drinks per day Alcohol type: beer Patient Tobacco Use Status: Former Tobacco user Tobacco use type: Cigarette Years Smoked: 30 years Use of substances other than those prescribed or required for medical reasons: No Advance Directives: No Advance Directives Information Provided: Yes service: No Current occupational status: employed Meds Allergies Allergy/AdvReac Type Severity Reaction Status Date / Time No Known Allergies Allergy Verified 07/12/21 11:10 Active Medications: Current Medications Acetaminophen (Acetaminophen 325 Mg Tablet) 650 mg PO Q6H PRN PRN Reason: Pain, Mild (Pain Scale 1-3) Albuterol/Ipratropium (Albuterol/Iprat 2.5/0.5mg 3 Ml Ampul.Neb) 3 ml INHALE RQ4H WHILE AWAKE [facility] Last Admin: 07/18/21 07:58 Dose: 3 ml Documented by: Albuterol/Ipratropium (Albuterol/Iprat 2.5/0.5mg 3 Ml Ampul.Neb) 3 ml INHALE Q4H PRN PRN Reason: Shortness of Breath/Wheezing Amlodipine Besylate (Amlodipine Besylate 10 Mg Tablet) 10 mg PO DAILY [facility]; Protocol Last Admin: 07/18/21 07:17 Dose: 10 mg Documented by: Bupropion HCl (Bupropion Hcl Xl 300 Mg Tab.Er.24h) 300 mg PO DAILY [facility] Last Admin: 07/18/21 07:17 Dose: 300 mg Documented by: Enoxaparin Sodium (Enoxaparin Sodium 40 Mg/0.4 Ml Syringe) 40 mg SUBCUT Q24H [facility] Last Admin: 07/17/21 21:10 Dose: 40 mg Documented by: Piperacillin Sod/Tazobactam (Sod 3.375 gm/ Sodium Chloride) 50 mls @ 100 mls/hr IV Q6H [facility] Last Infusion: 07/18/21 06:49 Dose: Infused Documented by: Vancomycin HCl 750 mg/ Sodium (Chloride) 265 mls @ 265 mls/hr IV Q12H [facility] Melatonin (Melatonin 3 Mg Tablet) 6 mg PO BEDTIME PRN PRN Reason: Insomnia Methylprednisolone Sodium Succinate (Methylprednisolone Sod Succ 40 Mg/Ml Vial) 40 mg IVPUSH Q6H [facility] Last Admin: 07/18/21 07:17 Dose: 40 mg Documented by: Omeprazole (Omeprazole 20 Mg Capsule.Dr) 20 mg PO DAILY@0630 [facility] Last Admin: 07/18/21 06:16 Dose: 20 mg Documented by: Pharmacy Consult (Consult Rx Vancomycin Dosing) 1 each MISCELLANE DAILY PRN PRN Reason: Consult order Senna (Sennosides 8.6 Mg Tablet) 17.2 mg PO BEDTIME PRN PRN Reason: Constipation Sodium Chloride (0.9 % Sodium Chloride Flush 3 Ml Syringe) 3 ml IVFLUSH QSHIFT [facility] Last Admin: 07/18/21 07:03 Dose: Not Given Documented by: Theophylline (Theophylline Anhydrous Er 300 Mg Tab.Er.12h) 300 mg PO Q12H [facility] Last Admin: 07/18/21 07:17 Dose: 300 mg Documented by: Home Medications Medication Instructions Recorded Confirmed Last Taken Type alendronate 35 mg tablet 35 mg PO QWEEK 11/25/20 07/17/21 07/16/21 History amlodipine 10 mg tablet 10 mg PO DAILY 11/25/20 07/17/21 Unknown History bupropion HCl 300 mg 24 hr tablet, 300 mg PO DAILY 11/25/20 07/17/21 Unknown History extended release omeprazole 20 mg capsule,delayed 20 mg PO DAILY 11/25/20 07/17/21 Unknown History release Physical Exam Vital Signs: Vital Signs: Last Vital Signs Temp 98.2 F 07/18/21 04:40 Pulse 97 07/18/21 08:38 Resp 14 07/18/21 08:38 BP 135/67 07/18/21 08:38 Pulse Ox 95 07/18/21 08:38 BMI result Body Mass Index 20.9 Const: General: comfortable (But dyspneic during conversation), no acute distress, alert and awake Orientation/consciousness: patient oriented x3 HENMT: Head: Yes normal to inspection General nose exam: No nasal polyps present and No nasal discharge present Face and sinus: Yes sinuses nontender Mouth: oropharynx normal Throat: Yes posterior oropharynx normal Eyes: General: appearance normal, both eyes and all related structures Neck: Neck: Yes normal visual inspection, Yes no lymphadenopathy, Yes trachea midline and Yes no JVD Thyroid: Thyroid normal Chest: Chest palpation & inspection: normal inspection of the chest, normal palpation of entire chest wall and no tenderness Resp: Other: Percussion note hyper-resonant, breath sounds are very distant with prolonged expiratory phase on both sides. There are no audible wheezes rhonchi or crepitations at this time. Cardio: Palpation: normal PMI Rate: regular rate Rhythm: regular rhythm Heart sounds: no gallops and no murmurs GI: Palpation (GI): Soft to palpation, nontender, No hepatosplenomegaly present and no masses Auscultation: normal bowel sounds Back/Spine/Pelvis: Thoracic/Lumbar Spine: thoracic and lumbar spine normal to inspection and thoraco-lumbar ROM limited Skin: General skin exam: no rashes or lesions noted Neuro: General: patient oriented x3 and no focal motor deficits Cranial nerves: Yes CN's II-XII intact bilaterally Extrem: General: Yes normal to inspection, Yes no clubbing, cyanosis or edema and Yes no calf tenderness Psych: Appearance: grossly normal and well kempt Speech and movement: Normal speech and movement present Results Laboratory Findings CBC and BMP: 07/18/21 07:48 07/18/21 07:48 Abnormal lab findings: Abnormal Labs 07/17/21 07/17/21 07/17/21 15:19 15:19 18:52 WBC 11.5 H Hgb 16.8 H Hct 48.4 H MCV MCH Plt Count 415 H MPV 9.3 L Immature Gran % (Auto) 0.8 H Neut % (Auto) 95.7 H Lymph % (Auto) 2.2 L [place] % (Auto) 1.0 L Lymph # (Auto) 0.3 L Abs Immat Gran (auto) 0.09 H Absolute Neuts (auto) 11.0 H BUN Random Glucose 168 H Lactic Acid 2.2 H* Calcium 10.6 H D 07/18/21 07/18/21 07:48 07:48 WBC 12.4 H Hgb Hct MCV 98.4 H MCH 33.4 H Plt Count MPV 8.9 L Immature Gran % (Auto) 0.8 H Neut % (Auto) 92.2 H Lymph % (Auto) 3.3 L [place] % (Auto) Lymph # (Auto) 0.4 L Abs Immat Gran (auto) 0.10 H Absolute Neuts (auto) 11.4 H BUN 6 L Random Glucose 141 H Lactic Acid Calcium Diagnostic Findings Chest x-ray: report reviewed and image reviewed Assessment and Plan (1) Acute exacerbation of chronic obstructive airways disease: Status: Acute This patient does have chronic and advanced chronic obstructive pulmonary disease, She is on maximum medical treatment even at home. Currently she has increased shortness of breath with cough and expectoration, Leukocytosis is due to chronic steroid usage and I do not think it is due to active infection. Recc . Treat for acute exacerbation of COPD, with IV Solu-Medrol 40 mg q.8 hours for 1 or 2 days then, switched to prednisone taper. No need of the antibiotics. Continue her regular regimen as before, 1 she is ready for discharge, discuss with the patient about . short-term pulmonary rehab (2) Bronchiectasis: Status: Acute This patient has radiologic diagnosis of minimal bronchiectasis, which is part of her chronic obstructive pulmonary disease. She is prone to have recurrent respiratory infections, but at this time I do not think she has any active bit bacterial infection. So no need of any broad-spectrum antibiotics. Patient has been on azithromycin 3 days a week and that should be continued, more as an anti-inflammatory agent. Procedures Date of Service Date of Service: 07/18/21
[2021-07-18] MEDS: vancomycin HCL 750 MG in 0.9 % Sodium Chloride 250 ML 265 MG IV (10:03)
--- NOTE | 2021-07-18 12:44 | HO.PM.IMPN ---
Subjective Subjective Date of Service: 07/18/21 Interval History: the patient was seen and evaluated this morning Laying in bed, feels significant improvement since coming into the hospital O2 sat mid 90s on room Reporting dyspnea on exertion, wheezes and coughing No reported other overnight events. Systemic review: No fever, chills or weakness No chest pain, palpitation shortness of breath wheezes and coughing No abdominal pain, nausea or vomiting No urinary symptoms No any rash or wounds Physical Exam Vital Signs: Vital Signs: Last Vital Signs Temp 98.2 F 07/18/21 04:40 Pulse 97 07/18/21 11:35 Resp 20 07/18/21 11:35 BP 145/72 H 07/18/21 10:43 Pulse Ox 93 07/18/21 10:43 BMI result Body Mass Index 20.9 Const: Other: Constitutional : Alert, oriented, not in distress Neck : Normal inspection, Supple Cardiovascular : RRR, S1 S2, no lower extremity edema Respiratory : Fairly decreased bilateral air entry, no crackles, bilateral scattered wheezes Gastrointestinal: soft, lax, Normal bowel sounds, Non tender Skin : Warm, Dry Neurological : Alert & oriented x3, No focal deficit Objective Data Active Medications Acetaminophen (Acetaminophen 325 Mg Tablet) 650 mg PO Q6H PRN PRN Reason: Pain, Mild (Pain Scale 1-3) Albuterol/Ipratropium (Albuterol/Iprat 2.5/0.5mg 3 Ml Ampul.Neb) 3 ml INHALE RQ4H WHILE AWAKE [facility] Last Admin: 07/18/21 11:34 Dose: 3 ml Documented by: BETH Albuterol/Ipratropium (Albuterol/Iprat 2.5/0.5mg 3 Ml Ampul.Neb) 3 ml INHALE Q4H PRN PRN Reason: Shortness of Breath/Wheezing Amlodipine Besylate (Amlodipine Besylate 10 Mg Tablet) 10 mg PO DAILY [facility]; Protocol Last Admin: 07/18/21 07:17 Dose: 10 mg Documented by: SILVINO Bupropion HCl (Bupropion Hcl Xl 300 Mg Tab.Er.24h) 300 mg PO DAILY [facility] Last Admin: 07/18/21 07:17 Dose: 300 mg Documented by: SILVINO Enoxaparin Sodium (Enoxaparin Sodium 40 Mg/0.4 Ml Syringe) 40 mg SUBCUT Q24H [facility] Last Admin: 07/17/21 21:10 Dose: 40 mg Documented by: RUPERTO Piperacillin Sod/Tazobactam (Sod 3.375 gm/ Sodium Chloride) 50 mls @ 100 mls/hr IV Q6H [facility] Last Admin: 07/18/21 12:42 Dose: 100 mls/hr Documented by: SILVINO Vancomycin HCl 750 mg/ Sodium (Chloride) 265 mls @ 265 mls/hr IV Q12H [facility] Last Infusion: 07/18/21 11:11 Dose: 0 mls/hr Documented by: SILVINO Melatonin (Melatonin 3 Mg Tablet) 6 mg PO BEDTIME PRN PRN Reason: Insomnia Methylprednisolone Sodium Succinate (Methylprednisolone Sod Succ 40 Mg/Ml Vial) 40 mg IVPUSH Q6H [facility] Last Admin: 07/18/21 12:42 Dose: 40 mg Documented by: SILVINO Omeprazole (Omeprazole 20 Mg Capsule.Dr) 20 mg PO DAILY@0630 [facility] Last Admin: 07/18/21 06:16 Dose: 20 mg Documented by: RUPERTO Pharmacy Consult (Consult Rx Vancomycin Dosing) 1 each MISCELLANE DAILY PRN PRN Reason: Consult order Senna (Sennosides 8.6 Mg Tablet) 17.2 mg PO BEDTIME PRN PRN Reason: Constipation Sodium Chloride (0.9 % Sodium Chloride Flush 3 Ml Syringe) 3 ml IVFLUSH QSHIFT [facility] Last Admin: 07/18/21 07:03 Dose: Not Given Documented by: SILVINO Non-Admin Reason: Med Not Available Theophylline (Theophylline Anhydrous Er 300 Mg Tab.Er.12h) 300 mg PO Q12H [facility] Last Admin: 07/18/21 07:17 Dose: 300 mg Documented by: SILVINO Labs CBC & Chem 7: 07/18/21 07:48 07/18/21 07:48 Labs: Laboratory Results - last 24 hr 07/17/21 07/17/21 07/17/21 15:19 15:19 15:19 MCV 94.9 MCH 32.9 MCHC 34.7 RDW 11.6 Plt Count 415 H MPV 9.3 L Immature Gran % (Auto) 0.8 H Neut % (Auto) 95.7 H Lymph % (Auto) 2.2 L [place] % (Auto) 1.0 L Eos % (Auto) 0.1 Baso % (Auto) 0.2 Lymph # (Auto) 0.3 L [place] # (Auto) 0.1 Eos # (Auto) 0.0 Baso # (Auto) 0.0 Abs Immat Gran (auto) 0.09 H Absolute Neuts (auto) 11.0 H Absolute Nucleated RBC 0.000 Nucleated RBC % (auto) 0.0 Smear Tech's Comments VERIFIED Anion Gap 16 Estim Creat Clear Calc 66.2 Estimated GFR > 60 Random Glucose 168 H Lactic Acid Lactic Acid F/U @ 2Hr Calcium 10.6 H D Magnesium Total Bilirubin 0.5 AST 18 ALT 13 Alkaline Phosphatase 73 B-Natriuretic Peptide 10 Total Protein 8.0 Albumin 4.7 Urine Color Urine Appearance Urine pH Ur Specific [place] Urine Protein Urine Glucose (UA) Urine Ketones Urine Blood Urine Nitrite Ur Leukocyte Esterase Influenza Type A (PCR) Influenza Type B (PCR) RSV RNA Qual (PCR) SARS-CoV-2 RNA (RT-PCR) 07/17/21 07/17/21 07/17/21 18:52 18:52 19:16 MCV MCH MCHC RDW Plt Count MPV Immature Gran % (Auto) Neut % (Auto) Lymph % (Auto) [place] % (Auto) Eos % (Auto) Baso % (Auto) Lymph # (Auto) [place] # (Auto) Eos # (Auto) Baso # (Auto) Abs Immat Gran (auto) Absolute Neuts (auto) Absolute Nucleated RBC Nucleated RBC % (auto) Smear Tech's Comments Anion Gap Estim Creat Clear Calc Estimated GFR Random Glucose Lactic Acid 2.2 H* Lactic Acid F/U @ 2Hr Calcium Magnesium 2.0 Total Bilirubin AST ALT Alkaline Phosphatase B-Natriuretic Peptide Total Protein Albumin Urine Color Urine Appearance Urine pH Ur Specific [place] Urine Protein Urine Glucose (UA) Urine Ketones Urine Blood Urine Nitrite Ur Leukocyte Esterase Influenza Type A (PCR) NEGATIVE Influenza Type B (PCR) NEGATIVE RSV RNA Qual (PCR) NEGATIVE SARS-CoV-2 RNA (RT-PCR) NEGATIVE 07/17/21 07/18/21 07/18/21 21:13 01:25 07:48 MCV 98.4 H MCH 33.4 H MCHC 34.0 RDW 11.9 Plt Count 377 MPV 8.9 L Immature Gran % (Auto) 0.8 H Neut % (Auto) 92.2 H Lymph % (Auto) 3.3 L [place] % (Auto) 3.6 Eos % (Auto) 0.0 Baso % (Auto) 0.1 Lymph # (Auto) 0.4 L [place] # (Auto) 0.5 Eos # (Auto) 0.0 Baso # (Auto) 0.0 Abs Immat Gran (auto) 0.10 H Absolute Neuts (auto) 11.4 H Absolute Nucleated RBC 0.000 Nucleated RBC % (auto) 0.0 Smear Tech's Comments VERIFIED Anion Gap Estim Creat Clear Calc Estimated GFR Random Glucose Lactic Acid Lactic Acid F/U @ 2Hr 1.9 Calcium Magnesium Total Bilirubin AST ALT Alkaline Phosphatase B-Natriuretic Peptide Total Protein Albumin Urine Color YELLOW Urine Appearance CLEAR Urine pH 6.0 Ur Specific [place] 1.020 Urine Protein NEG Urine Glucose (UA) NEG Urine Ketones NEG Urine Blood NEG Urine Nitrite NEG Ur Leukocyte Esterase NEG Influenza Type A (PCR) Influenza Type B (PCR) RSV RNA Qual (PCR) SARS-CoV-2 RNA (RT-PCR) 07/18/21 07:48 MCV MCH MCHC RDW Plt Count MPV Immature Gran % (Auto) Neut % (Auto) Lymph % (Auto) [place] % (Auto) Eos % (Auto) Baso % (Auto) Lymph # (Auto) [place] # (Auto) Eos # (Auto) Baso # (Auto) Abs Immat Gran (auto) Absolute Neuts (auto) Absolute Nucleated RBC Nucleated RBC % (auto) Smear Tech's Comments Anion Gap 15 Estim Creat Clear Calc 74.4 Estimated GFR > 60 Random Glucose 141 H Lactic Acid Lactic Acid F/U @ 2Hr Calcium 8.4 D Magnesium Total Bilirubin AST ALT Alkaline Phosphatase B-Natriuretic Peptide Total Protein Albumin Urine Color Urine Appearance Urine pH Ur Specific [place] Urine Protein Urine Glucose (UA) Urine Ketones Urine Blood Urine Nitrite Ur Leukocyte Esterase Influenza Type A (PCR) Influenza Type B (PCR) RSV RNA Qual (PCR) SARS-CoV-2 RNA (RT-PCR) Assessment and Plan (1) Acute exacerbation of chronic obstructive airways disease: Status: Acute (2) Bronchiectasis: Status: Acute Plan 61-year-old female with a past medical history of hypertension, osteoporosis, COPD, chronic respiratory failure on 2 L of home oxygen intermittently/on exertion; anxiety, depression; presented to the hospital today with a chief complaint of shortness of breath/cough with greenish sputum, dyspnea on exertion, hypoxia. Noted to be in COPD exacerbation/pneumonia. Admitted for further management. Acute on chronic COPD exacerbation: Improving Solu-Medrol IV q.8 Nebulizations standing and p.r.n. Supplemental oxygen with goal oxygen saturation at 93-94% Patient currently not in respiratory distress. Pulmonology consult, consider pulmonary rehab, Solu-Medrol Q 8 then tapering dose at discharge History of bronchiectasis Received antibiotic recently No signs of sepsis ID consulted Pulmonology recommended discontinue IV antibiotics and resume home azithromycin History of hypertension Continue home amlodipine History of depression Continue home probably on DVT prophylaxis: Lovenox Code status: Full code Quality Stroke Does the patient have a stroke diagnosis?: No VTE Prior VTE?: No VTE Risk Level:: Medical - moderate - high VTE Device Contraindication: Treatment Not Indicated VTE Drug Contraindication: N/A - Med Ordered
--- NOTE | 2021-07-18 12:45 | PC.NURSE ---
medicated further per emar, awaiting lunch, in no obvious distress. denies cp or sob at rest in stretcher. rr even/unlabored on 1l nc.
[2021-07-18] MEDS: Azithromycin 250 MG TABLET PO (15:25)
--- NOTE | 2021-07-18 16:07 | P.CNID_ITS ---
History of Present Illness Data of Consult Service Date: 07/18/21 Requesting physician: Rupert Fraser Primary Care Provider: MD MARY ANN Lama Reason for consult: shortness of breath She presents with shortness of breath for last week worsening. She has no fever or chills. She has received Zpack and Levaquin Review of Systems Review of Systems: Yes all other systems are reviewed and are negative [facility] Past Medical History Medical History (Updated 08/01/21 @ 20:01 by Zach Cunningham MD) Abnormal chest x-ray Bronchiectasis Chronic respiratory failure COPD (chronic obstructive pulmonary disease) Dyspnea Family History Family history: reviewed and not pertinent Social History Social History Household Members: Family Housing: House Do you presently have visiting nurse or other home services: No Alcohol intake: current Alcohol intake frequency: 3 or more drinks per day Alcohol type: beer Patient Tobacco Use Status: Former Tobacco user Tobacco use type: Cigarette Years Smoked: 30 years service: No Current occupational status: employed Meds Allergies Allergy/AdvReac Type Severity Reaction Status Date / Time No Known Allergies Allergy Verified 08/01/21 13:50 Active Medications: Current Medications Acetaminophen (Acetaminophen 325 Mg Tablet) 650 mg PO Q6H PRN PRN Reason: Pain, Mild (Pain Scale 1-3) Albuterol/Ipratropium (Albuterol/Iprat 2.5/0.5mg 3 Ml Ampul.Neb) 3 ml INHALE RQ4H WHILE AWAKE [facility] Last Admin: 07/18/21 15:35 Dose: 3 ml Documented by: Albuterol/Ipratropium (Albuterol/Iprat 2.5/0.5mg 3 Ml Ampul.Neb) 3 ml INHALE Q4H PRN PRN Reason: Shortness of Breath/Wheezing Amlodipine Besylate (Amlodipine Besylate 10 Mg Tablet) 10 mg PO DAILY [facility]; Protocol Last Admin: 07/18/21 07:17 Dose: 10 mg Documented by: Azithromycin (Azithromycin 250 Mg Tablet) 250 mg PO Q48H [facility] Last Admin: 07/18/21 15:25 Dose: 250 mg Documented by: Bupropion HCl (Bupropion Hcl Xl 300 Mg Tab.Er.24h) 300 mg PO DAILY [facility] Last Admin: 07/18/21 07:17 Dose: 300 mg Documented by: Enoxaparin Sodium (Enoxaparin Sodium 40 Mg/0.4 Ml Syringe) 40 mg SUBCUT Q24H [facility] Last Admin: 07/17/21 21:10 Dose: 40 mg Documented by: Melatonin (Melatonin 3 Mg Tablet) 6 mg PO BEDTIME PRN PRN Reason: Insomnia Methylprednisolone Sodium Succinate (Methylprednisolone Sod Succ 40 Mg/Ml Vial) 40 mg IVPUSH Q8H [facility] Last Admin: 07/18/21 12:48 Dose: Not Given Documented by: Omeprazole (Omeprazole 20 Mg Capsule.Dr) 20 mg PO DAILY@0630 [facility] Last Admin: 07/18/21 06:16 Dose: 20 mg Documented by: Pharmacy Consult (Consult Rx Vancomycin Dosing) 1 each MISCELLANE DAILY PRN PRN Reason: Consult order Senna (Sennosides 8.6 Mg Tablet) 17.2 mg PO BEDTIME PRN PRN Reason: Constipation Sodium Chloride (0.9 % Sodium Chloride Flush 3 Ml Syringe) 3 ml IVFLUSH QSHIFT [facility] Last Admin: 07/18/21 15:24 Dose: Not Given Documented by: Theophylline (Theophylline Anhydrous Er 300 Mg Tab.Er.12h) 300 mg PO Q12H [facility] Last Admin: 07/18/21 07:17 Dose: 300 mg Documented by: Home Medications Medication Instructions Recorded Confirmed Last Taken Type alendronate 35 mg tablet 35 mg PO QWEEK 11/25/20 07/17/21 07/16/21 History amlodipine 10 mg tablet 10 mg PO DAILY 11/25/20 07/17/21 Unknown History bupropion HCl 300 mg 24 hr tablet, 300 mg PO DAILY 11/25/20 07/17/21 Unknown History extended release omeprazole 20 mg capsule,delayed 20 mg PO DAILY 11/25/20 07/17/21 Unknown Hist ory release Physical Exam Vital Signs: Vital Signs: Last Vital Signs Temp 98.2 F 07/18/21 04:40 Pulse 101 H 07/18/21 15:34 Resp 24 H 07/18/21 15:34 BP 144/74 H 07/18/21 14:10 Pulse Ox 93 07/18/21 14:10 BMI result Body Mass Index 20.9 Const: General: cooperative HENMT: Head: Yes normal to inspection Mouth: Normal oral and palatal mucosa present Resp: Other: slt increased work of breathing Cardio: Rate: regular rate Rhythm: regular rhythm GI: Palpation (GI): Soft to palpation and nontender Extrem: General: Yes normal to inspection Results Labs CBC & Chem 7: 07/18/21 07:48 07/19/21 08:04 Labs: Short CBC 07/18/21 Range/Units 07:48 WBC 12.4 H (4.8-10.8) X10*3/uL Hgb 14.3 (12.0-16.0) g/dl Hct 42.1 (37.0-47.0) % Plt Count 377 (160-400) X10*3/uL BMP 07/18/21 07:48 Sodium 135 Potassium 3.5 Chloride 100 Carbon Dioxide 24 BUN 6 L Creatinine 0.73 Calcium 8.4 D Urine 07/18/21 Range/Units 01:25 Urine Color YELLOW Urine Appearance CLEAR Urine pH 6.0 (5.0-8.0) Ur Specific Fraser 1.020 (1.005-1.025) Urine Protein NEG (NEG-TRACE) MG/DL Urine Glucose (UA) NEG (NEG) MG/DL Assessment and Plan (1) Acute exacerbation of chronic obstructive airways disease: Status: Acute Patient may have acute exacerbation COPD She has received treatment for many pathogens including atypicals with Levaquin and Zmax (2) Bronchiectasis: Status: Acute Plan Continue Zithromax intermittently po per Pulmonary
[2021-07-18] MEDS: Enoxaparin Sodium 40 MG/0.4 ML SYRINGE SUBCUT (20:32)
[2021-07-18] MEDS: 0.9 % Sodium Chloride Flush 3 ML SYRINGE IVFLUSH (20:32)
[2021-07-19] VITALS (7 sets, daily range): BP systolic 147–170; BP diastolic 72–87; PULSE 82–98; RESP 16–20; TEMP 36.7–37.3; O2SAT 92–96
[2021-07-19] MEDS: methylPREDNISolone Sod Succ 40 MG/ML VIAL IVPUSH ×3 (05:46→20:53)
[2021-07-19] MEDS: Omeprazole 20 MG CAPSULE.DR PO (05:47)
[2021-07-19] MEDS: Albuterol/Iprat 2.5/0.5MG 3 ML AMPUL.NEB INHALE ×2 (07:48→12:04)
[2021-07-19] MEDS: Theophylline Anhydrous ER 300 MG TAB.ER.12H PO ×2 (08:29→20:53)
[2021-07-19] MEDS: buPROPion HCl XL 300 MG TAB.ER.24H PO (08:29)
[2021-07-19] MEDS: 0.9 % Sodium Chloride Flush 3 ML SYRINGE IVFLUSH ×3 (08:30→20:54)
[2021-07-19 08:52] LABS: Anion Gap 12 (12-20); Blood Urea Nitrogen 9 mg/dL (9-16); Carbon Dioxide 28 mmol/L (22-29); Chloride 100 mmol/L (96-108); Creatinine Clr Calc Pharmacy 79.8; Estimated Glomerular Filt Rate > 60; Glucose Random 123 mg/dL (60-115); Potassium 3.6 mmol/L (3.3-5.1); Sodium 136 mmol/L (135-145)
[2021-07-19 09:01] LABS: Vancomycin Trough < 3.0 mcg/mL (10.0-20.0)
--- NOTE | 2021-07-19 13:28 | HO.PM.IMPN ---
Subjective Subjective Date of Service: 07/19/21 Interval History: cc: sob intervla hisory: sob on minimal exertion Cardiovascular Cardiovascular: Reports no additional cardiovascular complaints Gastrointestinal Gastrointestinal: Reports no additional gastrointestinal complaints Physical Exam Vital Signs: Vital Signs: Last Vital Signs Temp 99.1 F 07/19/21 11:06 Pulse 88 07/19/21 12:05 Resp 16 07/19/21 12:05 BP 154/78 H 07/19/21 11:06 Pulse Ox 92 07/19/21 11:06 BMI result Body Mass Index 20.9 General: AO X 3, anxious Resp: wheeze bilateral, mild accessory muscles used CVS: S1,S2,RRR GI: soft, non tender, non distended Neuro: motor grossly intact, alert Psych: appropriate affect, appropriate insight Objective Data Active Medications Acetaminophen (Acetaminophen 325 Mg Tablet) 650 mg PO Q6H PRN PRN Reason: Pain, Mild (Pain Scale 1-3) Albuterol/Ipratropium (Albuterol/Iprat 2.5/0.5mg 3 Ml Ampul.Neb) 3 ml INHALE RQ4H WHILE AWAKE [facility] Last Admin: 07/19/21 12:04 Dose: 3 ml Documented by: SYBIL Albuterol/Ipratropium (Albuterol/Iprat 2.5/0.5mg 3 Ml Ampul.Neb) 3 ml INHALE Q4H PRN PRN Reason: Shortness of Breath/Wheezing Amlodipine Besylate (Amlodipine Besylate 10 Mg Tablet) 10 mg PO DAILY [facility]; Protocol Last Admin: 07/18/21 07:17 Dose: 10 mg Documented by: SILVINO Azithromycin (Azithromycin 250 Mg Tablet) 250 mg PO Q48H [facility] Last Admin: 07/18/21 15:25 Dose: 250 mg Documented by: SILVINO Bupropion HCl (Bupropion Hcl Xl 300 Mg Tab.Er.24h) 300 mg PO DAILY [facility] Last Admin: 07/19/21 08:29 Dose: 300 mg Documented by: ROSA Enoxaparin Sodium (Enoxaparin Sodium 40 Mg/0.4 Ml Syringe) 40 mg SUBCUT Q24H [facility] Last Admin: 07/18/21 20:32 Dose: 40 mg Documented by: MALINDA Melatonin (Melatonin 3 Mg Tablet) 6 mg PO BEDTIME PRN PRN Reason: Insomnia Methylprednisolone Sodium Succinate (Methylprednisolone Sod Succ 40 Mg/Ml Vial) 40 mg IVPUSH Q8H [facility] Last Admin: 07/19/21 05:46 Dose: 40 mg Documented by: MALINDA Omeprazole (Omeprazole 20 Mg Capsule.Dr) 20 mg PO DAILY@0630 [facility] Last Admin: 07/19/21 05:47 Dose: 20 mg Documented by: MALINDA Pharmacy Consult (Consult Rx Vancomycin Dosing) 1 each MISCELLANE DAILY PRN PRN Reason: Consult order Senna (Sennosides 8.6 Mg Tablet) 17.2 mg PO BEDTIME PRN PRN Reason: Constipation Sodium Chloride (0.9 % Sodium Chloride Flush 3 Ml Syringe) 3 ml IVFLUSH QSHIFT [facility] Last Admin: 07/19/21 08:30 Dose: 3 ml Documented by: ROSA Theophylline (Theophylline Anhydrous Er 300 Mg Tab.Er.12h) 300 mg PO Q12H [facility] Last Admin: 07/19/21 08:29 Dose: 300 mg Documented by: ROSA Labs CBC & Chem 7: 07/18/21 07:48 07/19/21 08:04 Labs: Laboratory Results - last 24 hr 07/19/21 07/19/21 08:04 08:04 Anion Gap 12 Estim Creat Clear Calc 79.8 Estimated GFR > 60 Random Glucose 123 H Calcium 9.0 D Vancomycin Trough < 3.0 L Microbiology Microbiology Results: Microbiology 07/17/21 18:52 Blood Culture - Preliminary Blood - Venous No growth after 24 hours. 07/17/21 18:52 Blood Culture - Preliminary Blood - Venous No growth after 24 hours. Assessment and Plan (1) Acute exacerbation of chronic obstructive airways disease: Status: Acute (2) Bronchiectasis: Status: Acute Plan 61-year-old female with a past medical history of hypertension, osteoporosis, COPD, chronic respiratory failure on 2 L of home oxygen intermittently/on exertion; anxiety, depression; presented to the hospital today with a chief complaint of shortness of breath/cough with greenish sputum, dyspnea on exertion, hypoxia. Noted to be in COPD exacerbation/pneumonia. Admitted for further management. chronic hypoxic respiratory failue with acute decompensation of COPD Solu-Medrol IV q.8 Nebulizations standing and p.r.n. Supplemental oxygen with goal oxygen saturation at 93-94% still sob on minimal exertion to consider pulmonary rehab History of bronchiectasis Received antibiotic recently No signs of sepsis History of hypertension amlodipine DVT prophylaxis: Lovenox Code status: Full code Quality Stroke Does the patient have a stroke diagnosis?: No VTE Prior VTE?: No VTE Risk Level:: Medical - moderate - high VTE Device Contraindication: Treatment Not Indicated VTE Drug Contraindication: N/A - Med Ordered
--- NOTE | 2021-07-19 15:15 | MHC.CM.PN ---
Female 61 DX Hypoxia Per MD rounds, Patient will benefit from Pulmonary rehab. Referrals have been sent to [facility]. Transport via [facility]
[2021-07-19] MEDS: Enoxaparin Sodium 40 MG/0.4 ML SYRINGE SUBCUT (20:53)
[2021-07-20] VITALS: BP 174/92; PULSE 95; RESP 18; TEMP 36.6; O2SAT 91
[2021-07-20 03:53] VITALS: BP 155/79; PULSE 87; RESP 18; TEMP 36.4; O2SAT 96
[2021-07-20] MEDS: methylPREDNISolone Sod Succ 40 MG/ML VIAL IVPUSH (06:35)
[2021-07-20] MEDS: Omeprazole 20 MG CAPSULE.DR PO (06:35)
[2021-07-20] MEDS: Albuterol/Iprat 2.5/0.5MG 3 ML AMPUL.NEB INHALE (07:44)
[2021-07-20 07:45] VITALS: PULSE 87; RESP 16; O2SAT 92
[2021-07-20 07:46] VITALS: BP 163/79; PULSE 77; RESP 18; TEMP 36.8; O2SAT 99
[2021-07-20] MEDS: 0.9 % Sodium Chloride Flush 3 ML SYRINGE IVFLUSH (08:58)
[2021-07-20] MEDS: Theophylline Anhydrous ER 300 MG TAB.ER.12H PO (08:58)
[2021-07-20] MEDS: buPROPion HCl XL 300 MG TAB.ER.24H PO (08:58)
[2021-07-20] MEDS: amLODIPine Besylate 10 MG TABLET PO (08:58)
--- NOTE | 2021-07-20 08:58 | P.PNPL_ITS ---
Subjective Subjective Date of Service: 07/20/21 Principal diagnosis: copd excerbation Interval history: This 61 years old female with advanced chronic obstructive pulmonary disease/bronchiectasis, admitted on 07/18, with acute exacerbation. She has improved to do her usual baseline. She has very poor respiratory reserve. Because of her associated bronchiectasis she remains prone to recurrent respiratory infection. However this time I do not think she had active respiratory infection. She is on azithromycin 250 on alternate days along with the small dose of pr ednisone. She follows up very closely with Dr. Cunningham, who is planning to start her on a home ventilatory assist device, to reduce the work of breathing. Objective Data Labs CBC & Chem 7: 07/18/21 07:48 07/19/21 08:04 Labs: Laboratory Results - last 24 hr 07/19/21 08:04 Vancomycin Trough < 3.0 L Microbiology Microbiology Results: Microbiology 07/17/21 18:52 Blood - Venous Blood Culture - Preliminary No growth after 48 hours. 07/17/21 18:52 Blood - Venous Blood Culture - Preliminary No growth after 48 hours. Review of Systems Review of Systems Yes all other systems are reviewed and are negative Physical Exam Vital Signs: Vital Signs: Last Vital Signs Temp 98.2 F 07/20/21 07:46 Pulse 77 07/20/21 07:46 Resp 18 07/20/21 07:46 BP 163/79 H 07/20/21 07:46 Pulse Ox 99 07/20/21 07:46 BMI result Body Mass Index 20.9 Const: Other: Chronically sick of a thin build, appears quite stable at this time. General: comfortable, no acute distress, alert and awake Orientation/consciousness: patient oriented x3 HENMT: Head: Yes normal to inspection General nose exam: No nasal polyps present and No nasal discharge present Face and sinus: Yes sinuses nontender Mouth: oropharynx normal Throat: Yes posterior oropharynx normal Eyes: General: appearance normal, both eyes and all related structures Neck: Neck: Yes normal visual inspection, Yes no lymphadenopathy, Yes trachea midline and Yes no JVD Thyroid: Thyroid normal Chest: Chest palpation & inspection: normal inspection of the chest, normal palpation of entire chest wall and no tenderness Resp: Other: Percussion note hyper-resonant, breath sounds are very distant with prolonged expiratory phase. No active wheezes or rhonchi are heard at this time. Cardio: Palpation: normal PMI Rate: regular rate Rhythm: regular rhythm Heart sounds: no gallops and no murmurs GI: Palpation (GI): Soft to palpation, nontender, No hepatosplenomegaly present and no masses Auscultation: normal bowel sounds Back/Spine/Pelvis: Thoracic/Lumbar Spine: thoracic and lumbar spine normal to inspection and thoraco-lumbar ROM limited Skin: General skin exam: no rashes or lesions noted Neuro: General: patient oriented x3 and no focal motor deficits Cranial nerves: Yes CN's II-XII intact bilaterally Extrem: General: Yes normal to inspection, Yes no clubbing, cyanosis or edema and Yes no calf tenderness Psych: Appearance: grossly normal and well kempt Speech and movement: Normal speech and movement present Procedures Date of Service Date of Service: 07/20/21 Assessment and Plan Assessment and plan (1) Acute exacerbation of chronic obstructive airways disease: Status: Acute Assessment and Plan: Patient has been treated for acute exacerbation of chronic obstructive pulmonary disease, with IV Solu-Medrol, DuoNeb updrafts, oxygen . She was empirically treated with IV vancomycin for possibility of respiratory infection, but I did not think she had any pneumonia. She is back to her baseline and seems quite stable. She can be discharged home on prednisone taper, 40 mg a day, and reduce by 10 mg Q 1 week. She should continue to use DuoNeb updrafts Q 6 hours while awake, continue O2 2-3 L/minute Continue theophylline 300 mg b.i.d. watch for any GI side effects. Patient will be followed by Dr. Hyun dozier as outpatient, and will discuss with her about starting on a ventilatory assist device to reduce the work of breathing. (2) Bronchiectasis: Status: Acute (3) Chronic respiratory failure: Status: Acute Plan Patient has chronic hypoxemic respiratory failure, she is on home O2, Will continue 2-3 L/minute. As noted above, the next steps are : PULMONARY REHAB PROGRAM OUTPATIENT. AND POSSIBILITY OF HOME VENTILATORY ASSIST DEVICE, TO REDUCE THE WORK OF BREATHING Time Spent With Patient Time: Total time spent is greater than 50% in coordination of care (as documented) at patient's floor/unit and/or counseling patient: Time with patient: 15 - 24 minutes Progress Note: Quality Stroke Does the patient have a stroke diagnosis?: No
--- NOTE | 2021-07-20 10:34 | P.DS_ITS ---
DS: Providers Provider Date of Service: 07/20/21 Date of admission: 07/17/21 19:44 Primary care physician: Ellen Bay MD Consults: 07/17/21 19:44 Consult to Infectious Diseases Routine Consulting Provider: Janeen Glass Reason for consultation: PNA; pt on prednisone as out pt. Consult to Pulmonology Routine Consulting Provider: Zach Cunningham Reason for consultation: COPD/Hypoxia DS: Diagnosis Discharge Diagnosis (1) Acute exacerbation of chronic obstructive airways disease: Status: Acute (2) Bronchiectasis: Status: Acute (3) Chronic respiratory failure: Status: Acute DS: Summary Hospital Course Hospital Course: patient was admitted for chronic hypoxic respiratory failure with acute de compensation of copd. she was given steroids, nebs, and symptoms improved. she will be discharged home and will follow up with pulm. she will go on a prednisone taper of 40mg daily decreasing by 10mg daily every week. Time Spent with Patient Time attestation: Total time spent providing and/or coordinating discharge services: Discharge coordination time: Greater than 30 minutes Quality: Stroke Does the patient have a stroke diagnosis?: No Physical Exam Vital Signs: Vital Signs: Last Vital Signs Temp 98.2 F 07/20/21 07:46 Pulse 77 07/20/21 07:46 Resp 18 07/20/21 07:46 BP 163/79 H 07/20/21 07:46 Pulse Ox 99 07/20/21 07:46 BMI result Body Mass Index 20.9 General: AO X 3, anxious Resp:? wheeze bilateral, mild accessory muscles used CVS: S1,S2,RRR GI: soft, non tender, non distended Neuro:? motor grossly intact, alert Psych: appropriate affect, appropriate insight? DS: Data Data Completed and Pending Labs on day of discharge: Preliminary micro results at discharge 07/17/21 18:52 Blood Culture - Preliminary Blood - Venous No growth after 48 hours. 07/17/21 18:52 Blood Culture - Preliminary Blood - Venous No growth after 48 hours. Discharge Plan Discharge Patient Disposition: Home, Self-Care Discharge Diagnosis: copd Referrals: Ellen Bay MD [Primary Care Provider] - 1 Week Discharge Medications: New azithromycin 250 mg Tablet 250 mg PO Q48H Qty: 10 0RF prednisone 10 mg tablet 40 mg PO DAILY Qty: 70 0RF Rx Instructions: 40mg daily, decrease by 10mg daily every week Continued theophylline 300 mg tablet extended release 12 hr 300 mg PO Q12H 90 Days Qty: 180 3RF tiotropium bromide 2.5 mcg/actuation mist 2 puff inhalation DAILY 90 Days Qty: 3 3RF budesonide 0.5 mg/2 mL suspension for nebulization 0.5 mg inhalation BID 90 Days Qty: 360 3RF ipratropium-albuterol 0.5 mg-3 mg(2.5 mg base)/3 mL solution for nebulization 3 ml inhalation QID 90 Days Qty: 1080 3RF albuterol sulfate 90 mcg/actuation HFA aerosol inhaler 2 puff inhalation Q6H PRN (Reason: shortness of breath or wheezing) 90 Days Q ty: 3 3RF alendronate 35 mg tablet 35 mg PO QWEEK 0RF Rx Instructions: Saturday amlodipine 10 mg tablet 10 mg PO DAILY 0RF bupropion HCl 300 mg tablet extended release 24 hr 300 mg PO DAILY 0RF omeprazole 20 mg capsule,delayed release(DR/EC) 20 mg PO DAILY 0RF Discontinued prednisone 20 mg tablet See Rx Instructions PO DAILY 10 Days Qty: 15 0RF Rx Instructions: PO daily; Take 2 tabs daily x 5 days, then 1 tablet daily x 5 days Discharge Orders: Discharge Order (Routine); Ordered 07/20/21 Ordered By: Kenji Garza Diet: advance to usual diet Activity on Discharge: As tolerated Stand Alone Forms: Patient Portal Discharge page Care Plan Goals: manage sob Health Concerns: copd Plan of Treatment: prednisone taper, follwo up pulm Assessment: see above
[2021-07-20 11:27] VITALS: BP 141/72; PULSE 93; RESP 20; TEMP 36.5; O2SAT 91
--- NOTE | 2021-07-20 12:49 | MHC.CM.PN ---
Female 61 Hypoxia. She is discharged today home self care. She arranged for transportation home.
== END 2021-07-20 13:22 | disposition home or self-care (01) | DRG 140 ==
LOC: HO.ED 19:45 → HO.EDOVER 19:49 → HO.IMC 07-18 13:24
PROVIDERS: Nurse Practitioner Family; Student in an Organized Health Care Education/Training Program; Admitting Provider Hospitalist; Emergency Provider Internal Medicine; PCP Internal Medicine; Visit Provider Internal Medicine
DX: J44.0 Chronic obstructive pulmonary disease with (acute) lower respiratory infection (principal); J96.10 Chronic respiratory failure, unspecified whether with hypoxia or hypercapnia; J18.9 Pneumonia, unspecified organism; Z99.81 Dependence on supplemental oxygen; F32.A Depression, unspecified; J44.1 Chronic obstructive pulmonary disease with (acute) exacerbation; I10 Essential (primary) hypertension; Z20.822 Contact with and (suspected) exposure to COVID-19; Z87.01 Personal history of pneumonia (recurrent); Z87.891 Personal history of nicotine dependence; Z79.899 Other long term (current) drug therapy
CPT/HCPCS: 0241U; 36415; 71045; 80048; 80053; 80202; 81003; 83605; 83735; 83880; 84484; 85025; 87040; 93005; 94640; 94644; 96361; 96374; 96375; 99285; 99291; J0696; J1650; J2543; J2920; J2930; J3370

== ENCOUNTER 2021-08-01 13:49 | Outpatient (REF) | payer OTHER, SELFPAY ==
[2021-08-01 15:16] LABS: Basophils Percent Auto 0.2 % (0-2); Eosinophils Percent Auto 0.1 % (0-4); Hemoglobin 15.5 g/dl (12.0-16.0); Imm Gran Abs Auto 0.14 X10*3/uL (0.00-0.03); Imm Gran Pct Auto 1.1 % (0.0-0.4); Lymphocytes Absolute Auto 0.3 X10*3/uL (1.2-4.9); Lymphocytes Percent Auto 2.7 % (20-40); MANUAL DIFF FLAG SCAN; Mean Corpuscular HGB Conc 33.7 g/dl (31.0-35.0); Mean Corpuscular Hemoglobin 32.8 pg (27.0-33.0); Mean Corpuscular Volume 97.5 fL (80.0-98.0); Mean Platelet Volume 8.9 fL (9.4-12.3); Monocytes Absolute Auto 0.2 X10*3/uL (0.1-1.2); Monocytes Percent Auto 1.3 % (2-11); Neutrophils Absolute Auto 12.1 x10*3/uL (2.0-8.3); Neutrophils Percent Auto 94.6 % (45-73); Platelet Count 391 X10*3/uL (160-400); Red Blood Count 4.72 X10*6/uL (4.20-5.50); Red Cell Distribution Width 11.9 % (11.0-16.0); SCAN SMEAR FLAG 1; White Blood Count 12.8 X10*3/uL (4.8-10.8)
[2021-08-01 15:32] LABS: D Dimer High Sensitivity < 150 NG/ML
[2021-08-01 15:44] LABS: SLIDE REVIEW VERIFIED
[2021-08-01 15:49] LABS: Troponin-I High Sensitivity 3.9 ng/L (<3.5-17.0)
[2021-08-01 15:52] LABS: Anion Gap 17 (12-20); Blood Urea Nitrogen 11 mg/dL (9-16); Carbon Dioxide 25 mmol/L (22-29); Chloride 96 mmol/L (96-108); Estimated Glomerular Filt Rate > 60; Glucose Random 154 mg/dL (60-115); Potassium 4.3 mmol/L (3.3-5.1); Sodium 134 mmol/L (135-145)
== END 2021-08-01 13:50 | disposition home or self-care (01) ==
LOC: HO.LAB 13:49
PROVIDERS: PCP Internal Medicine; Visit Provider Hospitalist
DX: J44.9 Chronic obstructive pulmonary disease, unspecified (principal); J96.11 Chronic respiratory failure with hypoxia; R93.89 Abnormal findings on diagnostic imaging of other specified body structures; J18.9 Pneumonia, unspecified organism; R00.0 Tachycardia, unspecified
CPT/HCPCS: 36415; 80048; 84484; 85025; 85379; 99212

== ENCOUNTER 2021-08-17 12:59 | Outpatient (REF) | payer OTHER, SELFPAY ==
--- NOTE | ~2021-08-17 | CT_ITS ---
EXAMINATION: CT CHEST WITHOUT CONTRAST CLINICAL INFORMATION: Pneumonia COMPARISON: Chest radiograph 07/17/2021 TECHNIQUE: Multidetector volumetric CT imaging of the chest was done. Axial MIP volume rendering provided. Sagittal and coronal reformatted images were obtained. This CT examination was performed using dose optimization techniques as appropriate, variously including the following: *Automated exposure control *Adjustment of mA and/or kV according to patient size (this includes techniques or standardized protocols for targeted exams where dose is matched to indication/reason for exam; i.e. extremities or head) *Use of iterative reconstruction technique DLP: 109 mGy-cm FINDINGS: CHEST WALL/AXILLA: No axillary lymphadenopathy. LUNGS: Moderate centrilobular emphysema. Few scattered distal endobronchial filling defects for example in the right lung apex and left lung apex suggesting inspissated mucus, 6:34 and 6:30. Right upper lobe solid pulmonary micronodule, 6:84. A 3 mm solid right lower lobe pulmonary nodule, 6:110. 3 mm solid right lower lobe pulmonary nodule, 6:91. Right upper, middle, and lingular bronchiectasis with mucus impacted airways and mild bronchial wall thickening. Lingular and right middle lobe atelectasis. Respiratory motion limits evaluation of the lung bases. MEDIASTINUM: Heart is normal in size. No mediastinal lymphadenopathy. Lack of intravenous contrast limits assessment for hilar adenopathy. PLEURA: There is no pleural effusion. UPPER ABDOMEN: Unremarkable OSSEOUS STRUCTURES: Remote healed right rib fracture deformity. CT/CT chest wo con IMPRESSION: Moderate centrilobular emphysema. Right upper, middle, and lingular bronchiectasis with mucus impacted airways and mild bronchial wall thickening. Few solid pulmonary nodules and pulmonary micronodules measuring up to 3 mm. Assuming patient has no history of malignancy, recommend follow-up per Fleischner Society recommendations. According to the UPDATED 2017 Fleischner Society recommendations, the advised followup imaging for solid nodules < 6 mm is: LOW RISK PATIENT: No routine follow up. HIGH RISK PATIENT: Optional CT at 12 months.
== END 2021-08-17 13:00 | disposition home or self-care (01) ==
LOC: HO.CT 12:59
PROVIDERS: PCP Internal Medicine; Visit Provider Hospitalist
DX: J18.9 Pneumonia, unspecified organism (principal); J47.9 Bronchiectasis, uncomplicated; R93.89 Abnormal findings on diagnostic imaging of other specified body structures
CPT/HCPCS: 71250

== ENCOUNTER → 2021-08-21 13:33 | Outpatient (BNVA) | payer OTHER, SELFPAY | PROVIDERS: PCP Internal Medicine; Visit Provider Hospitalist | DX: J43.2 Centrilobular emphysema (principal); J96.11 Chronic respiratory failure with hypoxia; J47.9 Bronchiectasis, uncomplicated; R00.0 Tachycardia, unspecified; R06.00 Dyspnea, unspecified | CPT/HCPCS: 99212 ==

== ENCOUNTER 2021-08-23 12:03 | Outpatient (REF) | payer OTHER, SELFPAY | END 2021-08-23 12:04 | disposition home or self-care (01) | LOC: HO.LNP 12:03 | PROVIDERS: Visit Provider Hospitalist | DX: J44.9 Chronic obstructive pulmonary disease, unspecified (principal) | CPT/HCPCS: 87070; 87205 ==

== ENCOUNTER 2021-08-26 14:55 | Inpatient (IN) | payer OTHER, SELFPAY ==
--- NOTE | ~2021-08-26 | US_ITS ---
EXAMINATION: US VENOUS ULTRASOUND WITH DOPPLER LOWER EXTREMITY, BILATERAL CLINICAL INFORMATION: Cough, SOB and leg edema. COMPARISON: None TECHNIQUE: Ultrasound of the deep veins is performed from the hip to the calf with compression sonography and color and pulse Doppler assessment. Spectral analysis with color-flow imaging is performed. FINDINGS: RIGHT: There is normal venous compression and respiratory variation and augmented flow. The visualized common femoral vein, superficial femoral vein, profunda femoral vein, popliteal vein, and the trifurcation region shows no evidence of deep venous thrombosis. There is no significant popliteal fossa cyst. There is a Lyman's cyst measuring 2.5 x 1.2 x 2.4 cm. LEFT: There is normal venous compression and respiratory variation and augmented flow. The visualized common femoral vein, superficial femoral vein, profunda femoral vein, popliteal vein, and the trifurcation region shows no evidence of deep venous thrombosis. There is no significant popliteal fossa cyst. If the patient's symptoms persist, followup ultrasound in 5 days 7 days might be of value to exclude proximal propagation from a non-visualized calf vein. US/US venous duplex LE BI IMPRESSION: No DVT demonstrated in the bilateral lower extremity.
--- NOTE | ~2021-08-26 | XR_ITS ---
EXAMINATION: XR CHEST CLINICAL INFORMATION: Shortness of breath and lower extremity swelling COMPARISON: Previous chest x-ray July [address] August 2021 TECHNIQUE: 2 views of the chest were obtained. FINDINGS: The cardiac and mediastinal contours are stable. The lungs are well inflated. There are increased markings seen on the lateral view behind the lower sternum. This is similar to previous exams and probably represents bronchiectasis and bronchial wall thickening in the right middle lobe and lingula seen on previous CT scan. There is no pleural effusion or pneumothorax. Bony structures are unremarkable. XR/XR chest 2V IMPRESSION: Well-inflated lungs. Bronchiectasis and bronchial wall thickening in the right middle lobe and lingula similar to previous previous chest CT. No evidence of CHF.
[2021-08-26 15:01] VITALS: BP 170/83; BP 181/89; PULSE 105; PULSE 111; RESP 24; TEMP 36.7; O2SAT 100; O2SAT 95; BMI 18.6
--- NOTE | 2021-08-26 15:16 | ECG_ITS ---
Test Reason : SOB Blood Pressure : / mmHG Vent. Rate : 101 BPM Atrial Rate : 101 BPM P-R Int : 148 ms QRS Dur : 078 ms QT Int : 346 ms P-R-T Axes : 084 082 079 degrees QTc Int : 448 ms Sinus tachycardia Possible Anterior infarct (cited on or before 17-JUL-2021) Abnormal ECG When compared with ECG of 17-JUL-2021 15:02, No significant change was found Referred By: Christie Tadeo Electronically Signed By:Mejia Waters
[2021-08-26 15:42] LABS: MANUAL DIFF FLAG NO
--- NOTE | 2021-08-26 15:43 | ED.SOB ---
HPI - SOB/Dyspnea General Chief Complaint: Dyspnea Stated Complaint: SOB Time Seen by Provider: 08/26/21 15:15 Source: patient, family ( at bedside) and EMS Mode of arrival: EMS Limitations: no limitations History of Present Illness HPI Narrative: 61-year-old female with a past medical history of hypertension, osteoporosis, anxiety, depression, COPD, chronic respiratory failure on 2 L of nasal cannula oxygen at home presenting to the ED via EMS with complaints of worsening shortness of breath with a productive cough with green-colored sputum over the past 3 weeks worse today with associated dyspnea on exertion / orthopnea and lower extremity edema. Patient reports that she was recently admitted and discharged on 07/17/2021 until 07/20/2021 for similar complaint. Denies any other hospitalization. Reports that she started losartan yesterday. She is vaccinated to COVID on the flu. She denies recent travel or sick contacts. She denies any measured fevers, chills, dizziness, headaches, neck pain / stiffness, trouble swallowing or breathing, loss of taste or smell, nasal congestion / rhinorrhea, sore throat, nausea/vomiting / diarrhea or constipation, abdominal pain, calf tenderness, palpitations, paresthesias, black or bloody emesis or any other symptoms complaints or concerns at this time. EMS increase her nasal cannula oxygen to 5 L and she is currently on 2 L and now satting at 100% on 5 L nasal cannula oxygen and reports she feels comfortable. MD elicited complaint: shortness of breath, cough and pain with inspiration Pertinent past history: COPD Onset (ago): week(s) (3) Timing: constant and progressively worsening Severity: severe Exacerbating factors: lying flat, exertion, movement, coughing, inspiration, talking and deep breaths Relieving factors: nothing Known history of: COPD Associated symptoms: pain with inspiration, cough, sputum production, orthopnea and other ( lower extremity edema) Treatment prior to arrival: oxygen (EMS increased her oxygen to 5 L) Related Data Home oxygen amount: 2 liters Home Medications Medication Instructions Recorded Confirmed alendronate 35 mg tablet 35 mg PO QWEEK 11/25/20 08/26/21 amlodipine 10 mg tablet 10 mg PO DAILY 11/25/20 08/26/21 bupropion HCl 300 mg 24 hr tablet, 300 mg PO DAILY 11/25/20 08/26/21 extended release omeprazole 20 mg capsule,delayed 20 mg PO DAILY 11/25/20 08/26/21 release buspirone 5 mg tablet 1 tab PO TID 08/26/21 08/26/21 valsartan 160 mg tablet 1 tab PO DAILY 08/26/21 08/26/21 Previous Rx's Medication Instructions Recorded albuterol sulfate 90 mcg/actuation 2 puff INHALATION Q6H PRN 90 Days 03/15/21 aerosol inhaler #3 ea budesonide 0.5 mg/2 mL suspension 0.5 mg (2 mL) INHALATION BID 90 03/15/21 for nebulization Days #360 ml ipratropium 0.5 mg-albuterol 3 mg 3 ml INHALATION QID 90 Days #1080 03/15/21 (2.5 mg base)/3 mL nebulization ml soln theophylline 300 mg 300 mg PO Q12H 90 Days #180 tab 03/15/21 tablet,extended release,12 hr tiotropium bromide 2.5 2 puff INHALATION DAILY 90 Days #3 03/15/21 mcg/actuation mist for inhalation ea azithromycin 250 mg tablet 250 mg PO Q48H #10 tab 07/20/21 prednisone 10 mg tablet 40 mg PO DAILY #70 tab 07/20/21 Allergies Allergy/AdvReac Type Severity Reaction Status Date / Time No Known Allergies Allergy Verified 08/26/21 15:01 Review of Systems Review of Systems: Constitutional : denies med noncompliance, no history of PE or DVT, denies recent travel, No Fever, No Chills ENT/Mouth : No Hoarseness, No sore throat, No Rhinorrhea, No Nasal congestion, No Sinus Pressure, No Ear Pain, No stridor, Eyes: No Redness, No Discharge, No Vision Changes Cardiovascular : No Chest Pain, + SOB, +Orthopnea, + Dyspnea on Exertion, + Edema, no pleurisy, Respiratory : + Cough With green-colored sputum production, No wheezing, no stridor, no hemoptysis, Gastrointestinal : No Nausea, No Vomiting, No Diarrhea, No abdominal Pain Genitourinary : No Dysuria, No Hematuria Musculoskeletal : No joint pain/swelling, No Myalgias Extremities: + extremity swelling, No LE pain Skin : No rash, no itching, no swelling Neuro : No Weakness, No Numbness, No Headache, No Dizziness, No Paresthesias Psych : No anxiety, depression Heme/Lymph: No Bruising, No Bleeding Endocrine : No Polyuria, No Polydipsia Yes all other systems are reviewed and are negative [facility] Past Medical History Attestation statement: The following information was validated with the patient. Medical History Abnormal chest x-ray Bronchiectasis Chronic respiratory failure COPD (chronic obstructive pulmonary disease) Dyspnea Social History Social History Household Members: Family Housing: House Do you presently have visiting nurse or other home services: No Alcohol intake: current Alcohol intake frequency: 3 or more drinks per day Alcohol type: beer Patient Tobacco Use Status: Former Tobacco user Tobacco use type: Cigarette Years Smoked: 30 years Advance Directives: Yes Advance Directives on File: Yes Advance Directives Date on File: 07/18/21 service: No Current occupational status: employed Physical Exam Vital Signs: Vital Signs: Last Vital Signs Temp 98.0 F 08/26/21 15:01 Pulse 97 08/26/21 15:51 Resp 27 H 08/26/21 15:51 BP 181/89 H 08/26/21 15:01 Pulse Ox 100 08/26/21 15:01 Oxygen Flow Rate 5 08/26/21 15:01 BMI result Body Mass Index 18.6 vital signs have been reviewed as normal and appeared to be correct. Blood pressure normal. Heart rate normal. Respiration rate normal. Temperature normal. Oxygen saturation normal. Appearance: Alert. Oriented X3. No acute distress. Head: Normal external exam. Normocephalic. Atraumatic. No [place] signs noted. No raccoon eyes noted Eyes: PERRLA. EOMI. Conjunctiva and sclera normal. Eyelids normal. ENT: EAC normal. TM's Normal. No septal hematoma noted. No hemotympanum noted. Pharynx normal. Uvula midline. Moist mucous membranes. No lesions/ulcerations or masses noted on the tongue. Normal voice. No trismus noted. No drooling noted. No muffled voice noted. Neck: Normal inspection. Neck supple. FROM. No adenopathy. Thyroid Normal. No tracheal deviation noted. No crepitus is noted. No meningeal signs. No neck mass noted. No signs of trauma noted. CVS: Normal heart rate and rhythm. Heart sound normal. Pulses normal throughout. No murmurs/rales/gallops. Respiratory: No respiratory distress. Painless inspiration. Breath sounds normal. No wheezes/rales/rhonchi noted. Chest nontender. No crepitus is noted. No signs of trauma noted. No accessory muscle usage noted or decreased air movement noted. No signs of trauma. Abdomen: Soft and nontender. Bowel sounds normal in all 4 quadrants. No distention noted. No organomegaly noted. No visible injury noted. Back: No CVA tenderness. Full range of motion noted. Nontender. No signs of trauma. Patient neuro intact bilaterally and distally on all 4 extremities. Patient's reflexes intact bilaterally and distally on all 4 extremities. No rashes/lesion/induration/fluctuance or signs of infection noted. Skin: Skin warm and dry. Normal skin color. Normal skin turgor. No rashes/lesions/lacerations noted. Extremities: No lower extremity edema. No calf tenderness is noted. Extremities exhibit normal range of motion and nontender. Neuro: Oriented X 3. No motor deficit. No sensory deficit. Reflexes normal. Normal steady gait. No focal neuro deficits noted. CN's II-XII intact bilaterally? Vascular: + radial pulses/+ 2 distal pedal pulses/+2 dorsalis pedis b/l. Normal cap refill. No cyanosis noted to upper extremity nails and lower extremity toes nails. Course Course Course Narrative: 15:16pm - 61-year-old female with a past medical history of hypertension, osteoporosis, anxiety, depression, COPD, chronic respiratory failure on 2 L of nasal cannula oxygen at home presenting to the ED via EMS with complaints of worsening shortness of breath with a productive cough with green-colored sputum over the past 3 weeks worse today with associated dyspnea on exertion / orthopnea and lower extremity edema. Patient reports that she was recently admitted and discharged on 07/17/2021 until 07/20/2021 for similar complaint. Denies any other hospitalization. Reports that she started losartan yesterday. She is vaccinated to COVID on the flu. EMS increase her nasal cannula oxygen to 5 L and she is currently on 2 L and now satting at 100% on 5 L nasal cannula oxygen and reports she feels comfortable. Plan: Labs, CXR, COVID Swab, blood cultures, lactic acid, EKG, Venous Duplex of b/l LE. Give the patient an hour long breathing tx, 125mg Of IV Solu-Medrol, 2 g of magnesium then re-evaluate. Reevaluation(s) Reevaluation #1: - labs reviewed and patient with mild hyponatremia at 133. Chloride 93. BUN 7. Random glucose 121. Otherwise all other labs are within normal limits. - EKG is Sinus tachycardia rhythm no acute ischemic changes are noted. similar compared to prior. - Chest x-ray revealed bronchiectasis and bronchial wall thickening in the right middle lobe and lingula similar when compared to previous CT no evidence of CHF otherwise no other acute processes are noted either. - venous duplex ultrasound of bilateral lower extremity negative for DVT or any other acute processes. - Therefore at this time patient will be admitted for acute exacerbation of COPD with bronchiectasis and hypoxia patient and at bedside understand agree this plan. Time: 16:39 MDM - SOB/Dyspnea Medical Records Attestation: I reviewed the patient's medical records. Lab Data Attestation: I reviewed the patient's lab results. Result diagrams: 08/26/21 15:35 08/26/21 15:35 Labs: Lab Results 08/26/21 08/26/21 08/26/21 Range/Units 15:35 15:35 15:35 WBC 7.6 (4.8-10.8) X10*3/uL RBC 4.87 (4.20-5.50) X10*6/uL Hgb 16.0 (12.0-16.0) g/dl Hct 46.8 (37.0-47.0) % MCV 96.1 (80.0-98.0) fL MCH 32.9 (27.0-33.0) pg MCHC 34.2 (31.0-35.0) g/dl RDW 11.8 (11.0-16.0) % Plt Count 367 (160-400) X10*3/uL MPV 8.6 L (9.4-12.3) fL Immature Gran % (Auto) 1.1 H (0.0-0.4) % Neut % (Auto) 80.6 H (45-73) % Lymph % (Auto) 8.3 L (20-40) % [place] % (Auto) 7.3 (2-11) % Eos % (Auto) 2.0 (0-4) % Baso % (Auto) 0.7 (0-2) % Lymph # (Auto) 0.6 L (1.2-4.9) X10*3/uL [place] # (Auto) 0.6 (0.1-1.2) X10*3/uL Eos # (Auto) 0.2 (0.0-0.4) X10*3/uL Baso # (Auto) 0.1 (0.0-0.2) X10*3/uL Abs Immat Gran (auto) 0.08 H (0.00-0.03) X10*3/uL Absolute Neuts (auto) 6.1 (2.0-8.3) x10*3/uL Absolute Nucleated RBC 0.000 (0.0-0.012) X10*3/uL Nucleated RBC % (auto) 0.0 (0.0-0.2) /100WBC PT 12.2 (9.9-13.0) SEC INR 1.1 (0.9-1.1) O2 Saturation % ABG pH at Pt Temp (7.35-7.45) ABG pCO2 at Pt Temp (32-45) mmHg ABG pO2 at Pt Temp (83-108) mmHg ABG HCO3 (22-26) mmol/L ABG Base Excess (Actual) mmol/L Sodium 133 L (135-145) mmol/L Potassium 4.4 (3.3-5.1) mmol/L Chloride 93 L (96-108) mmol/L Carbon Dioxide 28 (22-29) mmol/L Anion Gap 16 (12-20) BUN 7 L (9-16) mg/dL Creatinine 0.71 (0.5-1.4) mg/dL Estim Creat Clear Calc 67.6 Estimated GFR > 60 Random Glucose 121 H (60-115) mg/dL Lactic Acid (0.5-2.0) mmol/L Calcium 9.6 (8.4-10.2) mg/dL Magnesium 2.1 (1.6-2.6) mg/dL Total Bilirubin 0.7 (0.0-1.0) mg/dL AST 19 (5-31) U/L ALT 15 (0-31) U/L Alkaline Phosphatase 77 (39-117) U/L Troponin I High Sens (<3.5-17.0) ng/L B-Natriuretic Peptide (<100) pg/mL Total Protein 7.3 (6.5-8.0) g/dL Albumin 4.1 (3.5-5.0) g/dL COVID-19 ([facility]) (Negative) COVID-19 Clin Com 08/26/21 08/26/21 08/26/21 Range/Units 15:35 15:35 16:04 WBC (4.8-10.8) X10*3/uL RBC (4.20-5.50) X10*6/uL Hgb (12.0-16.0) g/dl Hct (37.0-47.0) % MCV (80.0-98.0) fL MCH (27.0-33.0) pg MCHC (31.0-35.0) g/dl RDW (11.0-16.0) % Plt Count (160-400) X10*3/uL MPV (9.4-12.3) fL Immature Gran % (Auto) (0.0-0.4) % Neut % (Auto) (45-73) % Lymph % (Auto) (20-40) % [place] % (Auto) (2-11) % Eos % (Auto) (0-4) % Baso % (Auto) (0-2) % Lymph # (Auto) (1.2-4.9) X10*3/uL [place] # (Auto) (0.1-1.2) X10*3/uL Eos # (Auto) (0.0-0.4) X10*3/uL Baso # (Auto) (0.0-0.2) X10*3/uL Abs Immat Gran (auto) (0.00-0.03) X10*3/uL Absolute Neuts (auto) (2.0-8.3) x10*3/uL Absolute Nucleated RBC (0.0-0.012) X10*3/uL Nucleated RBC % (auto) (0.0-0.2) /100WBC PT (9.9-13.0) SEC INR (0.9-1.1) O2 Saturation 99.0 % ABG pH at Pt Temp 7.45 (7.35-7.45) ABG pCO2 at Pt Temp 36 (32-45) mmHg ABG pO2 at Pt Temp 123 H (83-108) mmHg ABG HCO3 25 (22-26) mmol/L ABG Base Excess (Actual) 1.7 mmol/L Sodium (135-145) mmol/L Potassium (3.3-5.1) mmol/L Chloride (96-108) mmol/L Carbon Dioxide (22-29) mmol/L Anion Gap (12-20) BUN (9-16) mg/dL Creatinine (0.5-1.4) mg/dL Estim Creat Clear Calc Estimated GFR Random Glucose (60-115) mg/dL Lactic Acid 1.1 (0.5-2.0) mmol/L Calcium (8.4-10.2) mg/dL Magnesium (1.6-2.6) mg/dL Total Bilirubin (0.0-1.0) mg/dL AST (5-31) U/L ALT (0-31) U/L Alkaline Phosphatase (39-117) U/L Troponin I High Sens < 3.5 (<3.5-17.0) ng/L B-Natriuretic Peptide 11 (<100) pg/mL Total Protein (6.5-8.0) g/dL Albumin (3.5-5.0) g/dL COVID-19 ([facility]) (Negative) COVID-19 Clin Com 08/26/21 Range/Units 17:13 WBC (4.8-10.8) X10*3/uL RBC (4.20-5.50) X10*6/uL Hgb (12.0-16.0) g/dl Hct (37.0-47.0) % MCV (80.0-98.0) fL MCH (27.0-33.0) pg MCHC (31.0-35.0) g/dl RDW (11.0-16.0) % Plt Count (160-400) X10*3/uL MPV (9.4-12.3) fL Immature Gran % (Auto) (0.0-0.4) % Neut % (Auto) (45-73) % Lymph % (Auto) (20-40) % [place] % (Auto) (2-11) % Eos % (Auto) (0-4) % Baso % (Auto) (0-2) % Lymph # (Auto) (1.2-4.9) X10*3/uL [place] # (Auto) (0.1-1.2) X10*3/uL Eos # (Auto) (0.0-0.4) X10*3/uL Baso # (Auto) (0.0-0.2) X10*3/uL Abs Immat Gran (auto) (0.00-0.03) X10*3/uL Absolute Neuts (auto) (2.0-8.3) x10*3/uL Absolute Nucleated RBC (0.0-0.012) X10*3/uL Nucleated RBC % (auto) (0.0-0.2) /100WBC PT (9.9-13.0) SEC INR (0.9-1.1) O2 Saturation % ABG pH at Pt Temp (7.35-7.45) ABG pCO2 at Pt Temp (32-45) mmHg ABG pO2 at Pt Temp (83-108) mmHg ABG HCO3 (22-26) mmol/L ABG Base Excess (Actual) mmol/L Sodium (135-145) mmol/L Potassium (3.3-5.1) mmol/L Chloride (96-108) mmol/L Carbon Dioxide (22-29) mmol/L Anion Gap (12-20) BUN (9-16) mg/dL Creatinine (0.5-1.4) mg/dL Estim Creat Clear Calc Estimated GFR Random Glucose (60-115) mg/dL Lactic Acid (0.5-2.0) mmol/L Calcium (8.4-10.2) mg/dL Magnesium (1.6-2.6) mg/dL Total Bilirubin (0.0-1.0) mg/dL AST (5-31) U/L ALT (0-31) U/L Alkaline Phosphatase (39-117) U/L Troponin I High Sens (<3.5-17.0) ng/L B-Natriuretic Peptide (<100) pg/mL Total Protein (6.5-8.0) g/dL Albumin (3.5-5.0) g/dL COVID-19 ([facility]) Negative (Negative) COVID-19 Clin Com See Note ABG Data Attestation: I personally reviewed and interpreted this ABG as follows: Imaging Data Chest x-ray: Attestation: I personally reviewed and interpreted this imaging study as follows: Radiologist's impression: FINDINGS: The cardiac and mediastinal contours are stable. The lungs are well inflated. There are increased markings seen on the lateral view behind the lower sternum. This is similar to previous exams and probably represents bronchiectasis and bronchial wall thickening in the right middle lobe and lingula seen on previous CT scan. There is no pleural effusion or pneumothorax. Bony structures are unremarkable. XR/XR chest 2V IMPRESSION: Well-inflated lungs.? Bronchiectasis and bronchial wall thickening in the right middle lobe and lingula similar to previous previous chest CT. No evidence of CHF. venous duplex ultrasound of bilateral lower extremity: Attestation: I personally reviewed and interpreted this imaging study as follows: Radiologist's impression: FINDINGS: RIGHT: There is normal venous compression and respiratory variation and augmented flow. The visualized common femoral vein, superficial femoral vein, profunda femoral vein, popliteal vein, and the trifurcation region shows no evidence of deep venous thrombosis. ? There is no significant popliteal fossa cyst. There is a Lyman's cyst measuring 2.5 x 1.2 x 2.4 cm. LEFT: There is normal venous compression and respiratory variation and augmented flow. The visualized common femoral vein, superficial femoral vein, profunda femoral vein, popliteal vein, and the trifurcation region shows no evidence of deep venous thrombosis. ? There is no significant popliteal fossa cyst. If the patient's symptoms persist, followup ultrasound in 5 days 7 days might be of value to exclude proximal propagation from a non-visualized calf vein. US/US venous duplex LE BI IMPRESSION: No DVT demonstrated in the bilateral lower extremity. ECG Data Attestation: I personally reviewed and interpreted this ECG as follows: ECG interpretation date: 08/26/21 ECG interpretation time: 15:26 Interpretation: Sinus Tachycardia with a ventruicular rate of 101 with a normal [place] interval and normal QRS/QTc interval no aute ischemic changes noted. Similar when compared to to prior EKG on Jul 15, 2021 Critical Care Time Critical Care Time Critical Care Time: Yes Total Critical Care Time: 60 Attestation: I personally attest to this time spent taking care of the patient Discharge Plan Discharge Clinical Impression: Acute exacerbation of chronic obstructive airways disease, Acute hyponatremia, Bronchiectasis, Chronic respiratory failure Patient Disposition: Still a Patient Prescriptions: No Action theophylline 300 mg tablet extended release 12 hr 300 mg PO Q12H 90 Days Qty: 180 3RF tiotropium bromide 2.5 mcg/actuation mist 2 puff inhalation DAILY 90 Days Qty: 3 3RF budesonide 0.5 mg/2 mL suspension for nebulization 0.5 mg inhalation BID 90 Days Qty: 360 3RF ipratropium-albuterol 0.5 mg-3 mg(2.5 mg base)/3 mL solution for nebulization 3 ml inhalation QID 90 Days Qty: 1080 3RF albuterol sulfate 90 mcg/actuation HFA aerosol inhaler 2 puff inhalation Q6H PRN (Reason: shortness of breath or wheezing) 90 Days Qty: 3 3RF azithromycin 250 mg Tablet 250 mg PO Q48H Qty: 10 0RF prednisone 10 mg tablet 40 mg PO DAILY Qty: 70 0RF Rx Instructions: 40mg daily, decrease by 10mg daily every week buspirone 5 mg tablet 1 tab PO TID 0RF valsartan 160 mg tablet 1 tab PO DAILY 0RF alendronate 35 mg tablet 35 mg PO QWEEK 0RF Rx Instructions: Saturday amlodipine 10 mg tablet 10 mg PO DAILY 0RF bupropion HCl 300 mg tablet extended release 24 hr 300 mg PO DAILY 0RF omeprazole 20 mg capsule,delayed release(DR/EC) 20 mg PO DAILY 0RF
[2021-08-26] MEDS: Magnesium Sulfate/H2O 2 GM/50 ML PIGGYBACK IV (15:44)
[2021-08-26] MEDS: methylPREDNISolone Sod Succ 125 MG/2 ML VIAL IVPUSH (15:44)
[2021-08-26 15:46] LABS: Basophils Absolute Auto 0.1 X10*3/uL (0.0-0.2); Basophils Percent Auto 0.7 % (0-2); Eosinophils Absolute Auto 0.2 X10*3/uL (0.0-0.4); Hematocrit 46.8 % (37.0-47.0); Imm Gran Abs Auto 0.08 X10*3/uL (0.00-0.03); Imm Gran Pct Auto 1.1 % (0.0-0.4); Lymphocytes Absolute Auto 0.6 X10*3/uL (1.2-4.9); Lymphocytes Percent Auto 8.3 % (20-40); Mean Corpuscular HGB Conc 34.2 g/dl (31.0-35.0); Mean Corpuscular Hemoglobin 32.9 pg (27.0-33.0); Mean Corpuscular Volume 96.1 fL (80.0-98.0); Mean Platelet Volume 8.6 fL (9.4-12.3); Monocytes Absolute Auto 0.6 X10*3/uL (0.1-1.2); Monocytes Percent Auto 7.3 % (2-11); Neutrophils Absolute Auto 6.1 x10*3/uL (2.0-8.3); Neutrophils Percent Auto 80.6 % (45-73); Platelet Count 367 X10*3/uL (160-400); Red Blood Count 4.87 X10*6/uL (4.20-5.50); Red Cell Distribution Width 11.8 % (11.0-16.0); White Blood Count 7.6 X10*3/uL (4.8-10.8)
[2021-08-26 15:50] LABS: INTERNATIONAL NORM RATIO 1.1 (0.9-1.1); Prothrombin Time 12.2 SEC (9.9-13.0)
[2021-08-26 15:51] VITALS: PULSE 97; RESP 27; O2SAT 99
[2021-08-26] MEDS: Albuterol Sulfate (0.083%) 2.5 MG/3 ML VIAL.NEB 10 MG INHALE (15:51)
[2021-08-26 15:59] LABS: Lactic Acid 1.1 mmol/L (0.5-2.0)
[2021-08-26 16:04] LABS: Alanine Aminotransferase 15 U/L (0-31); Albumin Level 4.1 g/dL (3.5-5.0); Alkaline Phosphatase 77 U/L (39-117); Anion Gap 16 (12-20); Aspartate Amino Transferase 19 U/L (5-31); Bilirubin Total 0.7 mg/dL (0.0-1.0); Blood Urea Nitrogen 7 mg/dL (9-16); Calcium 9.6 mg/dL (8.4-10.2); Carbon Dioxide 28 mmol/L (22-29); Chloride 93 mmol/L (96-108); Creatinine Clr Calc Pharmacy 67.6; Estimated Glomerular Filt Rate > 60; Glucose Random 121 mg/dL (60-115); Magnesium 2.1 mg/dL (1.6-2.6); Potassium 4.4 mmol/L (3.3-5.1); Sodium 133 mmol/L (135-145); Total Protein 7.3 g/dL (6.5-8.0)
[2021-08-26 16:09] LABS: B Type Natriuretic Peptide 11 pg/mL (<100); Troponin-I High Sensitivity < 3.5 ng/L (<3.5-17.0)
[2021-08-26 16:11] VITALS: O2SAT 97
[2021-08-26 16:11] LABS: ABG Base Excess 1.7 mmol/L; ABG HCO3 25 mmol/L (22-26); ABG pCO2 36 mmHg (32-45); ABG pH 7.45 (7.35-7.45); ABG pO2 123 mmHg (83-108)
[2021-08-26] MEDS: levoFLOXacin/D5W 750 MG/150 ML PIGGYBACK 100 MG IV (16:23)
[2021-08-26 17:39] LABS: COVID-19 Test Negative (Negative)
--- NOTE | 2021-08-26 17:52 | PHA.MEDREC ---
Pharmacy Consult ? Medication Reconciliation Pharmacy has completed the medication reconciliation. newly prescribed meds buspirone and valsartan were stopped on 08/25 due to the leg swelling. Theophylline was stopped at last md visit in August by Dr Cunningham. She takes 2 of her 2.5 mg and 2 of her 1 mg tablets of prednisone every other day.
--- NOTE | 2021-08-26 18:16 | P.HPHOSP_ITS ---
History of Present Illness Date of Service: 08/26/21 Chief Complaint: Shortness of breath, dyspnea A 61 years old lady with PMH of bronchiectasis, COPD, chronic respiratory failure on O2 who presents to the hospital complaining of 5 days of worsening shortness of breath and dyspnea on exertion. The patient reports at for the last few weeks she has been feeling worse with increased shortness of breath and decrease the distance she can walk feeling more tired and dyspneic upon laying down her back. 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 Today she decided to come to the hospital as she is very dyspneic upon any minimal exertion with no reported chest pain, fever or chills but reporting having infrequent cough and bringing some thick mucus. No nausea, vomiting, change in bowel habit or urinary symptoms. In the emergency she her oxygen level has been stable on 2 L of oxygen but she feels very dyspneic with any movement. Admitted to the hospital for further evaluation and treatment. Review of Systems Review of Systems: No fever, chills but reports increased generalized weakness No chest pain, palpitation Having dyspnea on exertion, shortness of breath cough No abdominal pain, nausea or vomiting No urinary symptoms No any rash or wounds PMFSH Medical History Abnormal chest x-ray Bronchiectasis Chronic respiratory failure COPD (chronic obstructive pulmonary disease) Dyspnea Social History Household Members: Family Housing: House Do you presently have visiting nurse or other home services: No Alcohol intake: current Alcohol intake frequency: 3 or more drinks per day Alcohol type: beer Patient Tobacco Use Status: Former Tobacco user Tobacco use type: Cigarette Years Smoked: 30 years Advance Directives: Yes Advance Directives on File: Yes Advance Directives Date on File: 07/18/21 service: No Current occupational status: employed Meds Allergies Allergy/AdvReac Type Severity Reaction Status Date / Time No Known Allergies Allergy Verified 08/26/21 15:01 Active Medications: Current Medications Albuterol/Ipratropium (Albuterol/Iprat 2.5/0.5mg 3 Ml Ampul.Neb) 3 ml INHALE RQ4H WHILE AWAKE [facility] Amlodipine Besylate (Amlodipine Besylate 10 Mg Tablet) 10 mg PO DAILY [facility]; Protocol Bupropion HCl (Bupropion Hcl Xl 300 Mg Tab.Er.24h) 300 mg PO DAILY [facility] Omeprazole (Omeprazole 20 Mg Capsule.Dr) 20 mg PO DAILY [facility] Pharmacy Consult (Consult Rx Perform Med Rec) 1 each MISCELLANE ONCE PRN PRN Reason: Consult order Home Medications Medication Instructions Recorded Confirmed Last Taken Type alendronate 35 mg tablet 35 mg PO QWEEK 11/25/20 08/26/21 08/20/21 History amlodipine 10 mg tablet 10 mg PO DAILY 11/25/20 08/26/21 Unknown History bupropion HCl 300 mg 24 hr tablet, 300 mg PO DAILY 11/25/20 08/26/21 Unknown History extended release omeprazole 20 mg capsule,delayed 20 mg PO DAILY 11/25/20 08/26/21 Unknown History release azithromycin 250 mg tablet 250 mg PO MOWEFR 08/26/21 08/26/21 08/25/21 History prednisone 1 mg tablet 2 mg PO Q2D 08/26/21 08/26/21 08/26/21 History prednisone 2.5 mg tablet 5 mg PO Q2D 08/26/21 08/26/21 08/26/21 History Physical Exam Vital Signs and Narrative: Vital Signs: Last Vital Signs Temp 98.0 F 08/26/21 15:01 Pulse 97 08/26/21 15:51 Resp 27 H 08/26/21 15:51 BP 181/89 H 08/26/21 15:01 Pulse Ox 100 08/26/21 15:01 Oxygen Flow Rate 5 08/26/21 15:01 BMI result Body Mass Index 18.6 Const: Other: Constitutional : Alert, oriented, not in distress Neck : Normal inspection, Supple Cardiovascular : RRR, S1 S2, trace bilateral lower extremity edema Respiratory : Good bilateral air entry, no crackles, wheezes or rhonchi Gastrointestinal: soft, lax, Normal bowel sounds, Non tender Skin : Warm, Dry Neurological : Alert & oriented x3, No focal deficit Results Labs CBC and Chem 7: 08/26/21 15:35 08/26/21 15:35 Labs: Laboratory Results - last 24 hr 08/26/21 08/26/21 08/26/21 15:35 15:35 15:35 MCV 96.1 MCH 32.9 MCHC 34.2 RDW 11.8 Plt Count 367 MPV 8.6 L Immature Gran % (Auto) 1.1 H Neut % (Auto) 80.6 H Lymph % (Auto) 8.3 L [place] % (Auto) 7.3 Eos % (Auto) 2.0 Baso % (Auto) 0.7 Lymph # (Auto) 0.6 L [place] # (Auto) 0.6 Eos # (Auto) 0.2 Baso # (Auto) 0.1 Abs Immat Gran (auto) 0.08 H Absolute Neuts (auto) 6.1 Absolute Nucleated RBC 0.000 Nucleated RBC % (auto) 0.0 PT 12.2 INR 1.1 O2 Saturation ABG pH at Pt Temp ABG pCO2 at Pt Temp ABG pO2 at Pt Temp ABG HCO3 ABG Base Excess (Actual) Anion Gap 16 Estim Creat Clear Calc 67.6 Estimated GFR > 60 Random Glucose 121 H Lactic Acid Calcium 9.6 Magnesium 2.1 Total Bilirubin 0.7 AST 19 ALT 15 Alkaline Phosphatase 77 B-Natriuretic Peptide Total Protein 7.3 Albumin 4.1 COVID-19 ([facility]) [employer] 08/26/21 08/26/21 08/26/21 15:35 15:35 16:04 MCV MCH MCHC RDW Plt Count MPV Immature Gran % (Auto) Neut % (Auto) Lymph % (Auto) [place] % (Auto) Eos % (Auto) Baso % (Auto) Lymph # (Auto) [place] # (Auto) Eos # (Auto) Baso # (Auto) Abs Immat Gran (auto) Absolute Neuts (auto) Absolute Nucleated RBC Nucleated RBC % (auto) PT INR O2 Saturation 99.0 ABG pH at Pt Temp 7.45 ABG pCO2 at Pt Temp 36 ABG pO2 at Pt Temp 123 H ABG HCO3 25 ABG Base Excess (Actual) 1.7 Anion Gap Estim Creat Clear Calc Estimated GFR Random Glucose Lactic Acid 1.1 Calcium Magnesium Total Bilirubin AST ALT Alkaline Phosphatase B-Natriuretic Peptide 11 Total Protein Albumin COVID-19 ([facility]) [employer] 08/26/21 17:13 MCV MCH MCHC RDW Plt Count MPV Immature Gran % (Auto) Neut % (Auto) Lymph % (Auto) [place] % (Auto) Eos % (Auto) Baso % (Auto) Lymph # (Auto) [place] # (Auto) Eos # (Auto) Baso # (Auto) Abs Immat Gran (auto) Absolute Neuts (auto) Absolute Nucleated RBC Nucleated RBC % (auto) PT INR O2 Saturation ABG pH at Pt Temp ABG pCO2 at Pt Temp ABG pO2 at Pt Temp ABG HCO3 ABG Base Excess (Actual) Anion Gap Estim Creat Clear Calc Estimated GFR Random Glucose Lactic Acid Calcium Magnesium Total Bilirubin AST ALT Alkaline Phosphatase B-Natriuretic Peptide Total Protein Albumin COVID-19 ([facility]) Negative COVID-19 Clin Com See Note Imaging Radiologist's Impressions: Impressions Chest X-Ray 08/26/21 15:27 IMPRESSION: Well-inflated lungs. Bronchiectasis and bronchial wall thickening in the right middle lobe and lingula similar to previous previous chest CT. No evidence of CHF. Venous Duplex 08/26/21 16:30 IMPRESSION: No DVT demonstrated in the bilateral lower extremity. Assessment and Plan (1) Acute hyponatremia: Status: Acute (2) Bronchiectasis: Status: Acute (3) Dyspnea: Status: Acute (4) Acute exacerbation of chronic obstructive airways disease: Status: Acute Plan A 61 years old lady with PMH of bronchiectasis, COPD, chronic respiratory failure on O2 who presents to the hospital complaining of 5 days of worsening shortness of breath and dyspnea on exertion. Acute on chronic respiratory failure 2/2 bronchiectasis & COPD exacerbation Solu-Medrol IV q12 Nebulizations standing and p.r.n. Supplemental oxygen with goal oxygen saturation at 93-94% Pulmonology consult Chest physical therapy Fluid overload Lower extremities edema BNP normal , CXR showing lot of changes To check an echo To give a dose of Lasix and monitor response Hyponatremia Sodium of 133 Monitor after Lasix History of bronchiectasis No signs of sepsis resume home azithromycin History of hypertension ?Continue amlodipine History of depression ?Continue home medications DVT prophylaxis Lovenox The patient will need at least 2 night stay in the hospital for treatment of bronchiectasis exacerbation and acute on chronic hypoxic respiratory failure given high risk of decompensation. Quality Stroke Does the patient have a stroke diagnosis?: No VTE Prior VTE?: No VTE Risk Level:: Medical - moderate - high VTE Device Contraindication: Treatment Not Indicated VTE Drug Contraindication: N/A - Med Ordered
[2021-08-26] MEDS: Furosemide 20 MG/2 ML VIAL IVPUSH (18:41)
[2021-08-26 18:56] VITALS: BP 135/68; PULSE 96; RESP 18; O2SAT 94
--- NOTE | 2021-08-26 19:09 | PC.NURSE ---
Took report from Epi to assume care of pt. Pt resting, no apparent distress at this time, this RN continues to monitor.
[2021-08-26] MEDS: Albuterol/Iprat 2.5/0.5MG 3 ML AMPUL.NEB INHALE (19:58)
[2021-08-26] MEDS: Acetylcysteine 10 % 400 MG/4 ML VIAL INHALE (19:58)
[2021-08-26 20:00] VITALS: PULSE 94; RESP 22; O2SAT 92
[2021-08-26] MEDS: Azithromycin 250 MG TABLET PO (20:02)
[2021-08-26] MEDS: Enoxaparin Sodium 40 MG/0.4 ML SYRINGE SUBCUT (20:02)
[2021-08-26] MEDS: guaiFENesin LA 600 MG TAB.ER.12H PO (20:02)
--- NOTE | 2021-08-26 21:57 | PC.NURSE ---
Report given to RN at Overflow, Paul to transport Pt.
[2021-08-26 22:20] VITALS: BP 146/81; PULSE 98; RESP 16; TEMP 36.6; O2SAT 97
[2021-08-27] VITALS (9 sets, daily range): BP systolic 108–127; BP diastolic 64–74; PULSE 72–90; RESP 12–18; TEMP 36.3–36.7; O2SAT 95–98
[2021-08-27] MEDS: 0.9 % Sodium Chloride Flush 3 ML SYRINGE IVFLUSH ×4 (01:39→22:06)
[2021-08-27 06:41] LABS: Hematocrit 38.9 % (37.0-47.0); Hemoglobin 13.2 g/dl (12.0-16.0); Mean Corpuscular HGB Conc 33.9 g/dl (31.0-35.0); Mean Corpuscular Volume 94.2 fL (80.0-98.0); Mean Platelet Volume 8.9 fL (9.4-12.3); Platelet Count 344 X10*3/uL (160-400); Red Blood Count 4.13 X10*6/uL (4.20-5.50); Red Cell Distribution Width 11.4 % (11.0-16.0); White Blood Count 4.5 X10*3/uL (4.8-10.8)
[2021-08-27 06:57] LABS: Anion Gap 13 (12-20); Blood Urea Nitrogen 9 mg/dL (9-16); Calcium 8.8 mg/dL (8.4-10.2); Carbon Dioxide 27 mmol/L (22-29); Chloride 95 mmol/L (96-108); Creatinine Clr Calc Pharmacy 77.4; Estimated Glomerular Filt Rate > 60; Glucose Random 147 mg/dL (60-115); Potassium 4.3 mmol/L (3.3-5.1); Sodium 131 mmol/L (135-145)
[2021-08-27] MEDS: Acetylcysteine 10 % 400 MG/4 ML VIAL INHALE ×2 (07:55→20:41)
[2021-08-27] MEDS: Albuterol/Iprat 2.5/0.5MG 3 ML AMPUL.NEB INHALE ×4 (07:55→20:41)
[2021-08-27] MEDS: Furosemide 20 MG/2 ML VIAL IVPUSH (08:39)
[2021-08-27] MEDS: methylPREDNISolone Sod Succ 40 MG/ML VIAL IVPUSH ×2 (08:40→20:07)
[2021-08-27] MEDS: guaiFENesin LA 600 MG TAB.ER.12H PO ×2 (08:40→20:17)
[2021-08-27] MEDS: Omeprazole 20 MG CAPSULE.DR PO (08:40)
[2021-08-27] MEDS: amLODIPine Besylate 10 MG TABLET PO (08:40)
[2021-08-27] MEDS: buPROPion HCl XL 300 MG TAB.ER.24H PO (09:16)
--- NOTE | 2021-08-27 11:04 | P.PNIM_ITS ---
Subjective Subjective Date of Service: 08/27/21 Interval History: the patient was seen and evaluated this morning Laying in bed, feels some improvement since admission yesterday Still reporting dyspnea with minimal exertion No reported other overnight events. Review of Systems No fever, chills but reports increased generalized weakness No chest pain, palpitation Having dyspnea on exertion, shortness of breath cough No abdominal pain, nausea or vomiting No urinary symptoms No any rash or wounds Physical Exam Vital Signs: Vital Signs: Last Vital Signs Temp 98.0 F 08/27/21 07:50 Pulse 82 08/27/21 07:55 Resp 18 08/27/21 07:55 BP 115/74 08/27/21 07:50 Pulse Ox 97 08/27/21 07:50 Oxygen Flow Rate 5 08/26/21 15:01 BMI result Body Mass Index 18.6 Const: Other: Constitutional : Alert, oriented, not in distress Neck : Normal inspection, Supple Cardiovascular : RRR, S1 S2, trace bilateral lower extremity edema Respiratory : Fair bilateral air entry, no crackles, scattered bilateral wheezes or rhonchi, on oxygen supplement Gastrointestinal: soft, lax, Normal bowel sounds, Non tender Skin : Warm, Dry Neurological : Alert & oriented x3, No focal deficit Objective Data Active Medications Acetaminophen (Acetaminophen 325 Mg Tablet) 650 mg PO Q6H PRN PRN Reason: Pain, Mild (Pain Scale 1-3) Acetylcysteine (Acetylcysteine 10 % 400 Mg/4 Ml Vial) 400 mg INHALE RBID PENDING SALE TO [facility] Last Admin: 08/27/21 07:55 Dose: 400 mg Documented by: SYBIL Albuterol/Ipratropium (Albuterol/Iprat 2.5/0.5mg 3 Ml Ampul.Neb) 3 ml INHALE RQ4H WHILE AWAKE PENDING [facility]ALE TO [facility] Last Admin: 08/27/21 07:55 Dose: 3 ml Documented by: SYBIL Amlodipine Besylate (Amlodipine Besylate 10 Mg Tablet) 10 mg PO DAILY [facility]ENDING [facility] TO [facility]; P rotocol Last Admin: 08/27/21 08:40 Dose: 10 mg Documented by: CAROLEE Azithromycin (Azithromycin 250 Mg Tablet) 250 mg PO Q24H PENDING SALE TO [facility] Last Admin: 08/26/21 20:02 Dose: 250 mg Documented by: ADAM Bupropion HCl (Bupropion Hcl Xl 300 Mg Tab.Er.24h) 300 mg PO DAILY [facility] Last Admin: 08/27/21 09:16 Dose: 300 mg Documented by: CAROLEE Enoxaparin Sodium (Enoxaparin Sodium 40 Mg/0.4 Ml Syringe) 40 mg SUBCUT Q24H PENDING SALE TO [facility] Last Admin: 08/26/21 20:02 Dose: 40 mg Documented by: ADAM Furosemide (Furosemide 20 Mg/2 Ml Vial) 20 mg IVPUSH DAILY PENDING SALE TO [facility]; Protocol Last Admin: 08/27/21 08:39 Dose: 20 mg Documented by: CAROLEE Guaifenesin (Guaifenesin La 600 Mg Tab.Er.12h) 600 mg PO BID PENDING SALE TO [facility] Last Admin: 08/27/21 08:40 Dose: 600 mg Documented by: CAROLEE Methylprednisolone Sodium Succinate (Methylprednisolone Sod Succ 40 Mg/Ml Vial) 40 mg IVPUSH Q12H PENDING SALE TO [facility] Last Admin: 08/27/21 08:40 Dose: 40 mg Documented by: CAROLEE Omeprazole (Omeprazole 20 Mg Capsule.Dr) 20 mg PO DAILY [facility]END[facility] TO [facility] Last Admin: 08/27/21 08:40 Dose: 20 mg Documented by: CAROLEE Ondansetron HCl (Ondansetron Hcl 4 Mg/2 Ml Vial) 4 mg IVPUSH Q8H PRN PRN Reason: Nausea and Vomiting Pharmacy Consult (Consult Rx Perform Med Rec) 1 each MISCELLANE ONCE PRN PRN Reason: Consult order Sodium Chloride (0.9 % Sodium Chloride Flush 3 Ml Syringe) 3 ml IVFLUSH QSHIFT PENDING SALE TO [facility] Last Admin: 08/27/21 08:42 Dose: 3 ml Documented by: CAROLEE Labs CBC & Chem 7: 08/27/21 06:03 08/27/21 06:03 Labs: Laboratory Results - last 24 hr 08/26/21 08/26/21 08/26/21 15:35 15:35 15:35 MCV 96.1 MCH 32.9 MCHC 34.2 RDW 11.8 Plt Count 367 MPV 8.6 L Immature Gran % (Auto) 1.1 H Neut % (Auto) 80.6 H Lymph % (Auto) 8.3 L [place] % (Auto) 7.3 Eos % (Auto) 2.0 Baso % (Auto) 0.7 Lymph # (Auto) 0.6 L [place] # (Auto) 0.6 Eos # (Auto) 0.2 Baso # (Auto) 0.1 Abs Immat Gran (auto) 0.08 H Absolute Neuts (auto) 6.1 Absolute Nucleated RBC 0.000 Nucleated RBC % (auto) 0.0 PT 12.2 INR 1.1 O2 Saturation ABG pH at Pt Temp ABG pCO2 at Pt Temp ABG pO2 at Pt Temp ABG HCO3 ABG Base Excess (Actual) Anion Gap 16 Estim Creat Clear Calc 67.6 Estimated GFR > 60 Random Glucose 121 H Lactic Acid Calcium 9.6 Magnesium 2.1 Total Bilirubin 0.7 AST 19 ALT 15 Alkaline Phosphatase 77 B-Natriuretic Peptide Total Protein 7.3 Albumin 4.1 COVID-19 ([facility]) COVID-19 [facility] 08/26/21 08/26/21 08/26/21 15:35 15:35 16:04 MCV MCH MCHC RDW Plt Count MPV Immature Gran % (Auto) Neut % (Auto) Lymph % (Auto) [place] % (Auto) Eos % (Auto) Baso % (Auto) Lymph # (Auto) [place] # (Auto) Eos # (Auto) Baso # (Auto) Abs Immat Gran (auto) Absolute Neuts (auto) Absolute Nucleated RBC Nucleated RBC % (auto) PT INR O2 Saturation 99.0 ABG pH at Pt Temp 7.45 ABG pCO2 at Pt Temp 36 ABG pO2 at Pt Temp 123 H ABG HCO3 25 ABG Base Excess (Actual) 1.7 Anion Gap Estim Creat Clear Calc Estimated GFR Random Glucose Lactic Acid 1.1 Calcium Magnesium Total Bilirubin AST ALT Alkaline Phosphatase B-Natriuretic Peptide 11 Total Protein Albumin COVID-19 ([facility]) COVID-19 [facility] 08/26/21 08/27/21 08/27/21 17:13 06:03 06:03 MCV 94.2 MCH 32.0 MCHC 33.9 RDW 11.4 Plt Count 344 MPV 8.9 L Immature Gran % (Auto) Neut % (Auto) Lymph % (Auto) [place] % (Auto) Eos % (Auto) Baso % (Auto) Lymph # (Auto) [place] # (Auto) Eos # (Auto) Baso # (Auto) Abs Immat Gran (auto) Absolute Neuts (auto) Absolute Nucleated RBC 0.000 Nucleated RBC % (auto) 0.0 PT INR O2 Saturation ABG pH at Pt Temp ABG pCO2 at Pt Temp ABG pO2 at Pt Temp ABG HCO3 ABG Base Excess (Actual) Anion Gap 13 Estim Creat Clear Calc 77.4 Estimated GFR > 60 Random Glucose 147 H Lactic Acid Calcium 8.8 D Magnesium Total Bilirubin AST ALT Alkaline Phosphatase B-Natriuretic Peptide Total Protein Albumin COVID-19 ([facility]) Negative COVID-19 Clin Com See Note Assessment and Plan (1) Acute hyponatremia: Status: Acute (2) Bronchiectasis: Status: Acute (3) Dyspnea: Status: Acute (4) Acute exacerbation of chronic obstructive airways disease: Status: Acute Plan A 61 years old lady with PMH of bronchiectasis, COPD, chronic respiratory failure on O2 who presents to the hospital complaining of 5 days of worsening shortness of breath and dyspnea on exertion. Acute on chronic respiratory failure 2/2 bronchiectasis & COPD exacerbation Solu-Medrol IV q12 Nebulizations standing and p.r.n. Supplemental oxygen with goal oxygen saturation at 93-94% Pulmonology input appreciated Chest physical therapy Fluid overload Lower extremities edema BNP normal , CXR showing lot of changes but no specific effusion noted Pending the echo Continue Lasix and monitor response Hyponatremia Sodium dropped to 131 Monitor after Lasix History of bronchiectasis No signs of sepsis resume home azithromycin History of hypertension ?Continue amlodipine History of depression ?Continue home medications DVT prophylaxis Lovenox T need for hospital stay for treatment of bronchiectasis exacerbation and acute on chronic hypoxic respiratory failure given high risk of decompensation and readmission risk to prepare for safe discharge plan. Quality Stroke Does the patient have a stroke diagnosis?: No VTE Prior VTE?: No VTE Risk Level:: Medical - moderate - high VTE Device Contraindication: Treatment Not Indicated VTE Drug Contraindication: N/A - Med Ordered
--- NOTE | 2021-08-27 11:42 | PM.CNPUL ---
History of Present Illness History of Present Illness Consult date: 08/27/21 Requesting physician: Rupert Fraser Chief complaint: COPD, Bronchiectasis exacerbation Narrative: 61-year-old lady with underlying history of severe supplemental oxygen dependent 2L continuous flow COPD, patient of Dr. Cunningham admitted on 08/26/2021 with 5 day history of worsening dyspnea secondary to exacerbation of underlying COPD / bronchiectasis and possible component of congestive heart failure. Patient has been treated with systemic glucocorticoids, nebulized bronchodilators, and IV diuretic with improvement in her dyspnea. Review of Systems Constitutional: Constitutional: Denies daytime sleepiness, Denies excessive sweating, Denies fatigue, Denies fever(s), Denies lethargy, Denies malaise, Denies night sweats, Denies snoring and Denies weight loss Eyes: Eyes: Denies blurry vision and Denies itchy eyes ENT: Denies nasal congestion, Denies post nasal drip, Denies sinus pain, Denies sinus pressure and Denies other ( Thrush) Cardiovascular: Cardiovascular: Denies chest pain, Denies pedal edema, Reports dyspnea ( Now at baseline), Denies orthopnea and Denies paroxysmal nocturnal dyspnea Respiratory: Respiratory: Denies cough, Denies hemoptysis, Denies excessive phlegm production, Reports dyspnea ( Now at baseline), Denies snoring and Denies wheezing Gastrointestinal: Gastrointestinal: Denies abdominal pain and Denies heartburn Musculoskeletal: Musculoskeletal: Denies myalgias, Denies arthralgias and Denies joint swelling Integumentary/Breasts: Skin/Breast: Denies rash Neurologic: Denies memory loss and Denies seizure-like activity Psychiatric: Psychiatric: Denies abnormal sleep pattern, Denies anxiety and Denies memory loss Endocrine: Endocrine: Denies excessive sweating, Denies fatigue and Denies heat intolerance Hematologic/Lymphatic: Hematologic/Lymphatic: Denies easy bruising Allergic/Immunologic: Allergic/Immunologic: Denies itchy eyes, Denies seasonal rhinorrhea and Denies wheezing PMFSH Past Medical History Medical History Abnormal chest x-ray Bronchiectasis Chronic respiratory failure COPD (chronic obstructive pulmonary disease) Dyspnea Social History Social History Household Members: Family Housing: House Do you presently have visiting nurse or other home services: No Alcohol intake: current Alcohol intake frequency: 3 or more drinks per day Alcohol type: beer Patient Tobacco Use Status: Former Tobacco user Tobacco use type: Cigarette Years Smoked: 30 years Advance Directives: Yes Advance Directives on File: Yes Advance Directives Date on File: 07/18/21 service: No Current occupational status: employed Meds Allergies Allergy/AdvReac Type Severity Reaction Status Date / Time No Known Allergies Allergy Verified 08/26/21 15:01 Active Medications: Current Medications Acetaminophen (Acetaminophen 325 Mg Tablet) 650 mg PO Q6H PRN PRN Reason: Pain, Mild (Pain Scale 1-3) Acetylcysteine (Acetylcysteine 10 % 400 Mg/4 Ml Vial) 400 mg INHALE RBID [facility] Last Admin: 08/27/21 07:55 Dose: 400 mg Documented by: Albuterol/Ipratropium (Albuterol/Iprat 2.5/0.5mg 3 Ml Ampul.Neb) 3 ml INHALE RQ4H WHILE AWAKE [facility] Last Admin: 08/27/21 11:17 Dose: 3 ml Documented by: Amlodipine Besylate (Amlodipine Besylate 10 Mg Tablet) 10 mg PO DAILY [facility]; Protocol Last Admin: 08/27/21 08:40 Dose: 10 mg Documented by: Azithromycin (Azithromycin 250 Mg Tablet) 250 mg PO Q24H [facility] Last Admin: 08/26/21 20:02 Dose: 250 mg Documented by: Bupropion HCl (Bupropion Hcl Xl 300 Mg Tab.Er.24h) 300 mg PO DAILY [facility] Last Admin: 08/27/21 09:16 Dose: 300 mg Documented by: Enoxaparin Sodium (Enoxaparin Sodium 40 Mg/0.4 Ml Syringe) 40 mg SUBCUT Q24H [facility] Last Admin: 08/26/21 20:02 Dose: 40 mg Documented by: Furosemide (Furosemide 20 Mg/2 Ml Vial) 20 mg IVPUSH DAILY [facility]; Protocol Last Admin: 08/27/21 08:39 Dose: 20 mg Documented by: Guaifenesin (Guaifenesin La 600 Mg Tab.Er.12h) 600 mg PO BID [facility] Last Admin: 08/27/21 08:40 Dose: 600 mg Documented by: Methylprednisolone Sodium Succinate (Methylprednisolone Sod Succ 40 Mg/Ml Vial) 40 mg IVPUSH Q12H [facility] Last Admin: 08/27/21 08:40 Dose: 40 mg Documented by: Omeprazole (Omeprazole 20 Mg Capsule.) 20 mg PO DAILY [facility] Last Admin: 08/27/21 08:40 Dose: 20 mg Documented by: Ondansetron HCl (Ondansetron Hcl 4 Mg/2 Ml Vial) 4 mg IVPUSH Q8H PRN PRN Reason: Nausea and Vomiting Pharmacy Consult (Consult Rx Perform Med Rec) 1 each MISCELLANE ONCE PRN PRN Reason: Consult order Sodium Chloride (0.9 % Sodium Chloride Flush 3 Ml Syringe) 3 ml IVFLUSH QSHIFT [facility] Last Admin: 08/27/21 08:42 Dose: 3 ml Documented by: Home Medications Medication Instructions Recorded Confirmed Last Taken Type alendronate 35 mg tablet 35 mg PO QWEEK 11/25/20 08/26/21 08/20/21 History amlodipine 10 mg tablet 10 mg PO DAILY 11/25/20 08/26/21 Unknown History bupropion HCl 300 mg 24 hr tablet, 300 mg PO DAILY 11/25/20 08/26/21 Unknown History extended release omeprazole 20 mg capsule,delayed 20 mg PO DAILY 11/25/20 08/26/21 Unknown History release azithromycin 250 mg tablet 250 mg PO MOWEFR 08/26/21 08/26/21 08/25/21 History prednisone 1 mg tablet 2 mg PO Q2D 08/26/21 08/26/21 08/26/21 History prednisone 2.5 mg tablet 5 mg PO Q2D 08/26/21 08/26/21 08/26/21 History Physical Exam Vital Signs: Vital Signs: Last Vital Signs Temp 98.0 F 08/27/21 07:50 Pulse 84 08/27/21 11:18 Resp 18 08/27/21 11:18 BP 115/74 08/27/21 07:50 Pulse Ox 97 08/27/21 07:50 Oxygen Flow Rate 5 08/26/21 15:01 BMI result Body Mass Index 18.6 Const: General: no acute distress and alert Nutritional Appearance: not obese Orientation/consciousness: Other orientation findings ( oriented) HEENT: Head: Yes atraumatic Mouth: no other ( thrush) Throat: No postnasal drainage Eyes: General: appearance normal, both eyes and all related structures Sclerae: sclerae normal EOM: EOMs intact bilaterally Neck: Neck: Yes supple Lymphatic: no lymphadenopathy noted Resp: Effort & Inspection: normal respiratory effort and no use of accessory muscles Auscultation: clear to auscultation bilaterally Cardio: Rate: regular rate Rhythm: regular rhythm Heart sounds: no gallops, no murmurs and no rubs GI: Palpation (GI): Soft to palpation and Other GI palpation findings present ( nontender) Skin: General skin exam: other ( warm) Rashes: no rashes Extrem: General: No clubbing, No cyanosis and No edema Results Laboratory Findings CBC and BMP: 08/27/21 06:03 08/27/21 06:03 ABG, PT/INR, D-dimer: PT/INR, D-dimer PT 12.2 SEC (9.9-13.0) 08/26/21 15:35 INR 1.1 (0.9-1.1) 08/26/21 15:35 Abnormal lab findings: Abnormal Labs 08/26/21 08/26/21 08/26/21 15:35 15:35 16:04 WBC RBC MPV 8.6 L Immature Gran % (Auto) 1.1 H Neut % (Auto) 80.6 H Lymph % (Auto) 8.3 L Lymph # (Auto) 0.6 L Abs Immat Gran (auto) 0.08 H ABG pO2 at Pt Temp 123 H Sodium 133 L Chloride 93 L BUN 7 L Random Glucose 121 H 08/27/21 08/27/21 06:03 06:03 WBC 4.5 L RBC 4.13 L MPV 8.9 L Immature Gran % (Auto) Neut % (Auto) Lymph % (Auto) Lymph # (Auto) Abs Immat Gran (auto) ABG pO2 at Pt Temp Sodium 131 L Chloride 95 L BUN Random Glucose 147 H Assessment and Plan (1) COPD (chronic obstructive pulmonary disease): Qualifiers: COPD type: emphysema Emphysema type: centrilobular Qualified Code(s): J43.2 - Centrilobular emphysema Status: Acute (2) Chronic respiratory failure: Status: Acute (3) Bronchiectasis: Status: Acute (4) Acute exacerbation of chronic obstructive airways disease: Status: Acute Plan Impression: 61-year-old lady with underlying severe supplemental oxygen dependent COPD admitted with 5 day history of progressive dyspnea secondary to COPD exacerbation and possible congestive heart failure component. Now with significant improvement after treatment with systemic glucocorticoids, nebulized bronchodilators, and IV diuresis. Appears to be at baseline. Recommendation: Would suggest a brief course of systemic glucocorticoids at 40 mg daily for next 5 days, then go down back to home regimen of 7 mg daily. Continue nebulized bronchodilators and oxygen supplementation to maintain O2 saturation of 88-93%. Procedures Date of Service Date of Service: 08/27/21
--- NOTE | 2021-08-27 16:16 | MHC.CM.PN ---
Addendum entered by Justina Gonzalez 08/28/21 08:23: CM MET WITH PT TO DISCUSS DC PLANNING. PULMONARY REHAB WAS RECOMMENDED FOR PT DURING HER LAST ADMISSION HOWEVER SHE DECLINED AND DISCHARGED HOME INSTEAD. PT REPORTS SHE FEELS SHE DECOMPENSATED ONCE HOME AND IS NOW INTERESTED IN GOING TO PULMONARY REHAB. REFERRALS MADE TO [facility] AND [facility]. Original Note: PT LIVES AT HOME WITH HER AND IS INDEPENDENT WITH CARE AT BASELINE PT HAS A NEBULIZER AND HOME O2 SHE USES PRN PT HAS A HCP ON FILE AND HER PCP IS JUAN ANTONIO BILL PT IS VACCINATED AGAINST COVID-19 WITH PFIZER X 3 CURRENT DC PLAN IS HOME WITH NO SERVICES TO TRANSPORT
[2021-08-27] MEDS: Enoxaparin Sodium 40 MG/0.4 ML SYRINGE SUBCUT (20:17)
[2021-08-27] MEDS: Azithromycin 250 MG TABLET PO (20:17)
[2021-08-28] VITALS (10 sets, daily range): BP systolic 109–123; BP diastolic 59–70; PULSE 62–90; RESP 12–21; TEMP 36.5–36.9; O2SAT 94–99
--- NOTE | 2021-08-28 07:00 | CA_ITS ---
Transthoracic Echocardiogram Patient (Last, First, Middle): Dora Amos S Gender: Female Date of : 1960 Age: 61 Procedure Date: 08/28/2021 Procedure Type: Transthoracic Echocardiogram Location: ER Height: 167.64 cm Weight: 52.16 kg BSA: 1.58 m2 Heart Rate: bpm BP: 113 / 68 mmHg Receiver Stocker: NABEEL Referring MD: Rupert Fraser MD Symptoms: Dyspnea, fluid overload Study Quality: Fair ECG Rhythm: Sinus Conclusions: - The left ventricular systolic function is normal. The calculated ejection fraction is 69% by biplane method. - No obvious valvular pathology seen on this study. - Small plaque is seen in the sino tubular ridge. Findings Left Ventricle Normal left ventricular cavity size. There is normal left ventricular wall thickness. The left ventricular systolic function is normal. The calculated ejection fraction is 69% by biplane method. There is no evidence of regional wall motion abnormalities. Diastolic function is normal for age. Right Ventricle Normal right ventricular cavity size and systolic function. Atria Both atria are normal in size. Aortic Valve There is a normal trileaflet aortic valve. There is no aortic valve stenosis. There is no aortic valve regurgitation. Mitral Valve The mitral valve appears normal. There is no mitral valve regurgitation. There is no mitral valve stenosis. Pulmonic Valve The pulmonic valve was not well visualized. Tricuspid Valve Normal tricuspid valve structure. There is trace tricuspid valve regurgitation. The pulmonary artery systolic pressure is normal. Great Vessels The sino tubular ridge and asc aorta are normal in size. Small plaque is seen in the sino tubular ridge. Venous The inferior vena cava is normal in size and collapses greater than 50% with inspiration. Pericardium/Pleural There is no evidence of pericardial effusion. Prior Study Comparison No prior study available for comparison. Recommendations, Care & Conclusions No obvious valvular pathology seen on this study. Measurements 2D Linear Measurements IVSd: 0.88 0.6-0.9/0.6-1.0 cm LVIDd: 3.61 3.9-5.3/4.2-5.9 cm LVIDd Index: 2.28 2.4-3.2/2.2-3.1 cm/m2 LVIDs: 2.32 2.0-3.6 cm LVPWd: 0.76 0.7-1.1 cm LA Diam: 2.30 2.7-3.8/3.0-4.0 cm LAIDs Index: 1.46 1.5-2.3 cm/m2 LV Mass: 101.39 67-162/88-224 g LV Mass Index: 64.17 43-95/49-115 g/m2 LVOT Diam: 2.00 3.0+(-)1.3 cm 2D Systolic Function EF 4C: 68.60 >55% EF 2C: 68.60 >55% EF BiP: 68.50 >55% Mitral Valve MV Pk E: 0.73 MV PK A: 0.80 MV Decel Time: 233.00 E/A: 0.90 E'Lateral: 8.05 E'Medial: 8.05 E/E' Med: 9.10 E/E' Lat: 9.10 PHT: 68.00 MVA PHT: 3.24 Decel [place]: 3.15 Aortic Valve AoV Pk Evans: 1.29 AoV Mn Evans: 0.82 AoV VTI: 0.24 AoV Pk Grad: 7.00 Aov Mn Grad: 3.00 RACHEL Cont.VTI: 2.81 LVOT LVOT Pk Evans: 1.07 LVOT Mn Evans: 0.70 LVOT VTI: 0.21 LVOT Pk Grad: 5.00 LVOT Mn Grad: 2.00 LVOT Diam: 2.00 LVOT Area: 3.14 Diastolic Function MV Pk E: 0.73 MV Pk A: 0.80 E/A: 0.90 E'Medial: 8.05 E/E' Med: 9.10 E' Laterial: 8.05 E/E' Lat: 9.10 Right Ventricle TAPSE (mm): 20.70 TVS' Evans: 12.00 Tricuspid Valve TR Pk Evans: 1.56 TR Pk Grad: 10.00 RA Press: 8.00 RVSP: 18.00 Great Vessels Aorta Sinus of Valsalva: 2.97 2.0-3.[address] [place]: 2.88 1.7-3.4 cm Ao Asc: 3.10 2.1-3.4 cm Updated in Other Vendor System with Status of Final Arnulfo Cifuentes MD electronically signed on 08/28/2021 10:49:07 AM with status of Final
[2021-08-28 07:06] LABS: Glucose, Whole Blood 140 mg/dL (60-115)
[2021-08-28 07:11] LABS: Hemoglobin 13.6 g/dl (12.0-16.0); Mean Corpuscular Hemoglobin 32.6 pg (27.0-33.0); Mean Corpuscular Volume 95.9 fL (80.0-98.0); Mean Platelet Volume 9.2 fL (9.4-12.3); Platelet Count 391 X10*3/uL (160-400); Red Blood Count 4.17 X10*6/uL (4.20-5.50); Red Cell Distribution Width 11.6 % (11.0-16.0); White Blood Count 12.4 X10*3/uL (4.8-10.8)
[2021-08-28 07:15] LABS: Anion Gap 14 (12-20); Blood Urea Nitrogen 11 mg/dL (9-16); Calcium 9.3 mg/dL (8.4-10.2); Carbon Dioxide 30 mmol/L (22-29); Chloride 95 mmol/L (96-108); Creatinine Clr Calc Pharmacy 72.8; Estimated Glomerular Filt Rate > 60; Glucose Random 130 mg/dL (60-115); Potassium 4.8 mmol/L (3.3-5.1); Sodium 134 mmol/L (135-145)
[2021-08-28] MEDS: Albuterol/Iprat 2.5/0.5MG 3 ML AMPUL.NEB INHALE ×4 (07:43→19:41)
[2021-08-28] MEDS: Acetylcysteine 10 % 400 MG/4 ML VIAL INHALE ×2 (07:43→19:41)
[2021-08-28] MEDS: Omeprazole 20 MG CAPSULE.DR PO (08:26)
[2021-08-28] MEDS: 0.9 % Sodium Chloride Flush 3 ML SYRINGE IVFLUSH ×3 (08:26→20:30)
[2021-08-28] MEDS: guaiFENesin LA 600 MG TAB.ER.12H PO ×2 (08:26→20:28)
[2021-08-28] MEDS: methylPREDNISolone Sod Succ 40 MG/ML VIAL IVPUSH ×2 (08:26→20:28)
[2021-08-28] MEDS: amLODIPine Besylate 10 MG TABLET PO (08:26)
--- NOTE | 2021-08-28 08:32 | PC.NURSE ---
pt is a/o x 3 no sob/alexandre noted skin pink warm dddy, speaks in full sentences. lungs - diminished all lobes, md aware..
[2021-08-28] MEDS: buPROPion HCl XL 300 MG TAB.ER.24H PO (10:46)
--- NOTE | 2021-08-28 12:15 | HO.PM.IMPN ---
Subjective Subjective Date of Service: 08/28/21 Interval History: the patient was seen and evaluated this morning Laying in bed, feels some improvement reporting dyspnea with minimal exertion coughing No reported other overnight events. Review of Systems No fever, chills but reports increased generalized weakness No chest pain, palpitation Having dyspnea on exertion, shortness of breath cough No abdominal pain, nausea or vomiting No urinary symptoms No any rash or wounds Physical Exam Vital Signs: Vital Signs: Last Vital Signs Temp 97.7 F 08/28/21 08:31 Pulse 83 08/28/21 11:13 Resp 21 H 08/28/21 11:13 BP 109/59 L 08/28/21 08:31 Pulse Ox 94 08/28/21 08:31 Oxygen Flow Rate 5 08/26/21 15:01 BMI result Body Mass Index 18.6 Const: Other: Constitutional : Alert, oriented, not in distress Neck : Normal inspection, Supple Cardiovascular : RRR, S1 S2, trace bilateral lower extremity edema Respiratory : Fair bilateral air entry, no crackles, scattered bilateral wheezes or rhonchi, on oxygen supplement Gastrointestinal: soft, lax, Normal bowel sounds, Non tender Skin : Warm, Dry Neurological : Alert & oriented x3, No focal deficit Objective Data Active Medications Acetaminophen (Acetaminophen 325 Mg Tablet) 650 mg PO Q6H PRN PRN Reason: Pain, Mild (Pain Scale 1-3) Acetylcysteine (Acetylcysteine 10 % 400 Mg/4 Ml Vial) 400 mg INHALE RBID [facility] Last Admin: 08/28/21 07:43 Dose: 400 mg Documented by: BETH Albuterol/Ipratropium (Albuterol/Iprat 2.5/0.5mg 3 Ml Ampul.Neb) 3 ml INHALE RQ4H WHILE AWAKE [facility] Last Admin: 08/28/21 11:13 Dose: 3 ml Documented by: BETH Amlodipine Besylate (Amlodipine Besylate 10 Mg Tablet) 10 mg PO DAILY [facility]; Protocol Last Admin: 08/28/21 08:26 Dose: 10 mg Documented by: RAMANDEEP Azithromycin (Azithromycin 250 Mg Tablet) 250 mg PO Q24H [facility] Last Admin: 08/27/21 20:17 Dose: 250 mg Documented by: MANGO Bupropion HCl (Bupropion Hcl Xl 300 Mg Tab.Er.24h) 300 mg PO DAILY [facility] Last Admin: 08/28/21 10:46 Dose: 300 mg Documented by: RAMANDEEP Enoxaparin Sodium (Enoxaparin Sodium 40 Mg/0.4 Ml Syringe) 40 mg SUBCUT Q24H [facility] Last Admin: 08/27/21 20:17 Dose: 40 mg Documented by: MANGO Furosemide (Furosemide 20 Mg/2 Ml Vial) 20 mg IVPUSH DAILY [facility]; Protocol Last Admin: 08/27/21 08:39 Dose: 20 mg Documented by: CAROLEE Guaifenesin (Guaifenesin La 600 Mg Tab.Er.12h) 600 mg PO BID [facility] Last Admin: 08/28/21 08:26 Dose: 600 mg Documented by: RAMANDEEP Methylprednisolone Sodium Succinate (Methylprednisolone Sod Succ 40 Mg/Ml Vial) 40 mg IVPUSH Q12H [facility] Last Admin: 08/28/21 08:26 Dose: 40 mg Documented by: RAMANDEEP Omeprazole (Omeprazole 20 Mg Capsule.Dr) 20 mg PO DAILY [facility] Last Admin: 08/28/21 08:26 Dose: 20 mg Documented by: RAMANDEEP Ondansetron HCl (Ondansetron Hcl 4 Mg/2 Ml Vial) 4 mg IVPUSH Q8H PRN PRN Reason: Nausea and Vomiting Pharmacy Consult (Consult Rx Perform Med Rec) 1 each MISCELLANE ONCE PRN PRN Reason: Consult order Sodium Chloride (0.9 % Sodium Chloride Flush 3 Ml Syringe) 3 ml IVFLUSH QSHIFT [facility] Last Admin: 08/28/21 08:26 Dose: 3 ml Documented by: RAMANDEEP Labs CBC & Chem 7: 08/28/21 06:10 08/28/21 06:10 Labs: Laboratory Results - last 24 hr 08/28/21 08/28/21 08/28/21 06:10 06:10 07:02 MCV 95.9 MCH 32.6 MCHC 34.0 RDW 11.6 Plt Count 391 MPV 9.2 L Absolute Nucleated RBC 0.000 Nucleated RBC % (auto) 0.0 Anion Gap 14 Estim Creat Clear Calc 72.8 Estimated GFR > 60 POC Glucose 140 H Random Glucose 130 H Calcium 9.3 Microbiology Microbiology Results: Microbiology 08/26/21 15:46 Blood Culture - Preliminary Blood - Venous No growth after 24 hours. 08/26/21 15:35 Blood Culture - Preliminary Blood - Venous No growth after 24 hours. Assessment and Plan (1) Acute hyponatremia: Status: Acute (2) Bronchiectasis: Status: Acute (3) Acute exacerbation of chronic obstructive airways disease: Status: Acute Plan A 61 years old lady with PMH of bronchiectasis, COPD, chronic respiratory failure on O2 who presents to the hospital complaining of 5 days of worsening shortness of breath and dyspnea on exertion. Acute on chronic respiratory failure 2/2 bronchiectasis & COPD exacerbation Solu-Medrol IV q12 Nebulizations standing and p.r.n. Supplemental oxygen with goal oxygen saturation at 93-94% Pulmonology input appreciated Chest physical therapy Lower extremities edema BNP normal , CXR showing lot of changes but no specific effusion noted echo showing EF 69%. Diastolic function is normal. likely having right-sided heart strain from chronic lung disease Continue Lasix and monitor response Hyponatremia Sodium Improved to 133 Monitor after Lasix History of bronchiectasis No signs of sepsis resume home azithromycin History of hypertension ?Continue amlodipine History of depression ?Continue home medications DVT prophylaxis Lovenox T need for hospital stay for treatment of bronchiectasis exacerbation and acute on chronic hypoxic respiratory failure given high risk of decompensation and readmission risk to prepare for safe discharge plan. Quality Stroke Does the patient have a stroke diagnosis?: No VTE Prior VTE?: No VTE Risk Level:: Medical - moderate - high VTE Device Contraindication: Treatment Not Indicated VTE Drug Contraindication: N/A - Med Ordered
[2021-08-28] MEDS: Furosemide 20 MG TABLET PO (14:33)
--- NOTE | 2021-08-28 16:57 | PC.NURSE ---
rn to rn given to christian bustamante aware of plan of care for transfer to room 360.
[2021-08-28] MEDS: Enoxaparin Sodium 40 MG/0.4 ML SYRINGE SUBCUT (20:28)
[2021-08-28] MEDS: Azithromycin 250 MG TABLET PO (20:28)
[2021-08-29] VITALS: BP 128/67; PULSE 86; RESP 17; TEMP 36.3; O2SAT 97
[2021-08-29 07:34] VITALS: BP 146/68; PULSE 77; RESP 18; TEMP 36.5; O2SAT 95
[2021-08-29] MEDS: Albuterol/Iprat 2.5/0.5MG 3 ML AMPUL.NEB INHALE (08:07)
[2021-08-29] MEDS: Acetylcysteine 10 % 400 MG/4 ML VIAL INHALE (08:07)
[2021-08-29 08:10] VITALS: PULSE 77; RESP 18; O2SAT 95
[2021-08-29] MEDS: buPROPion HCl XL 300 MG TAB.ER.24H PO (09:09)
[2021-08-29] MEDS: guaiFENesin LA 600 MG TAB.ER.12H PO (09:09)
[2021-08-29] MEDS: methylPREDNISolone Sod Succ 40 MG/ML VIAL IVPUSH (09:09)
[2021-08-29] MEDS: 0.9 % Sodium Chloride Flush 3 ML SYRINGE IVFLUSH (09:09)
[2021-08-29] MEDS: amLODIPine Besylate 10 MG TABLET PO (09:09)
[2021-08-29] MEDS: Omeprazole 20 MG CAPSULE.DR PO (09:09)
--- NOTE | 2021-08-29 10:09 | PM.DS ---
DS: Providers Provider Date of Service: 08/29/21 Date of admission: 08/26/21 18:08 Primary care physician: Ellen Bay MD Consults: 08/26/21 18:08 Consult to Pulmonology Routine Consulting Provider: Zach Cunningham Reason for consultation: Broncheictasis exacerbation DS: Diagnosis Discharge Diagnosis (1) Acute hyponatremia: Status: Acute (2) Bronchiectasis: Status: Acute (3) Acute exacerbation of chronic obstructive airways disease: Status: Acute DS: Summary Hospital Course Hospital Course: Admission note HPI A 61 years old lady with PMH of bronchiectasis, COPD, chronic respiratory failure on O2 who presents to the hospital complaining of 5 days of worsening shortness of breath and dyspnea on exertion.? The patient reports at for the last few weeks she has been feeling worse with increased shortness of breath and decrease the distance she can walk feeling more tired and dyspneic upon laying down her back.? 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 Today she decided to come to the hospital as she is very dyspneic upon any minimal exertion with no reported chest pain, fever or chills but reporting having infrequent cough and bringing some thick mucus.? No nausea, vomiting, change in bowel habit or urinary symptoms. In the emergency she her oxygen level has been stable on 2 L of oxygen but she feels very dyspneic with any movement.? Admitted to the hospital for further evaluation and treatment. Hospital course The patient was admitted to the hospital for treatment of acute on chronic respiratory failure secondary to COPD and bronchiectasis exacerbation. Treated with IV steroids, nebulizers and Mucomyst nebulizer with supportive oxygen. She had chest physical therapy as she was evaluated by pulmonology team who recommended short-term steroid therapy. patient improved over the course of hospital stay and was able to participate in physical therapy sessions who recommended home PT. Noticed to mild lower extremity edema with normal BNP and no effusion on the chest x-ray. Echo was done showing EF of 69% with normal diastolic function. She could have symptoms of right-sided heart congestion that was treated with small dose of Lasix during the hospital stay. She might benefit from small dose of Lasix every other day but with her concurrent hyponatremia that was evaluated and treated during the hospital stay it is still a concern. Sodium dropped to 131 but improved back to 134 at the day of discharge. Her baseline of sodium is on the lower end most of the times. Continue prednisone for 3 more days Continue home nebulizer treatment To do physical therapy at home Time Spent with Patient Time attestation: Total time spent providing and/or coordinating discharge services: Discharge coordination time: Greater than 30 minutes Quality: Stroke Does the patient have a stroke diagnosis?: No Physical Exam Vital Signs: Vital Signs: Last Vital Signs Temp 97.7 F 08/29/21 07:34 Pulse 77 08/29/21 08:10 Resp 18 08/29/21 08:10 BP 146/68 H 08/29/21 07:34 Pulse Ox 95 08/29/21 07:34 Oxygen Flow Rate 5 08/26/21 15:01 BMI result Body Mass Index 18.6 Const: Other: Constitutional : Alert, oriented, not in distress Neck : Normal inspection, Supple Cardiovascular : RRR, S1 S2, trace bilateral lower extremity edema Respiratory : Fair bilateral air entry, no crackles, no more wheezes or rhonchi, on oxygen supplement Gastrointestinal: soft, lax, Normal bowel sounds, Non tender Skin : Warm, Dry Neurological : Alert & oriented x3, No focal deficit DS: Data Data Completed and Pending Labs on day of discharge: Preliminary micro results at discharge 08/26/21 15:46 Blood Culture - Preliminary Blood - Venous No growth after 48 hours. 08/26/21 15:35 Blood Culture - Preliminary Blood - Venous No growth after 48 hours. Discharge Plan Discharge Patient Disposition: Home Health Service Discharge Diagnosis: Acute exacerbation of COPD and bronchiectasis Referrals: Ellen Bay MD [Primary Care Provider] - 1 Week Discharge Medications: New guaifenesin [Mucinex] 600 mg Tablet Extended Release 12hr 600 mg PO BID 7 Days Qty: 14 0RF prednisone 20 mg tablet 40 mg PO DAILY Qty: 6 0RF Continued tiotropium bromide 2.5 mcg/actuation mist 2 puff inhalation DAILY 90 Days Qty: 3 3RF budesonide 0.5 mg/2 mL suspension for nebulization 0.5 mg inhalation BID 90 Days Qty: 360 3RF ipratropium-albuterol 0.5 mg-3 mg(2.5 mg base)/3 mL solution for nebulization 3 ml inhalation QID 90 Days Qty: 1080 3RF albuterol sulfate 90 mcg/actuation HFA aerosol inhaler 2 puff inhalation Q6H PRN (Reason: shortness of breath or wheezing) 90 Days Qty: 3 3RF prednisone 1 mg tablet 2 mg PO Q2D 0RF Label Comments: take #2 2.5 mg tablets with #2 1 mg tablets for total dose of 7 mg prednisone 2.5 mg tablet 5 mg PO Q2D 0RF Label Comments: take #2 2.5 mg tablets with #2 1 mg tablets for total dose of 7 mg azithromycin 250 mg tablet 250 mg PO MOWEFR 0RF alendronate 35 mg tablet 35 mg PO QWEEK 0RF Rx Instructions: Saturday amlodipine 10 mg tablet 10 mg PO DAILY 0RF bupropion HCl 300 mg tablet extended release 24 hr 300 mg PO DAILY 0RF omeprazole 20 mg capsule,delayed release(DR/EC) 20 mg PO DAILY 0RF Discharge Orders: Discharge Order (Routine); Ordered 08/29/21 Ordered By: Rupert Fraser Diet: advance to usual diet Activity on Discharge: As tolerated Stand Alone Forms: Patient Portal Discharge page Care Plan Goals: Read below Health Concerns: Read below Plan of Treatment: Read below Assessment: You were admitted to the hospital for treatment of COPD exacerbation. Evaluated by lung specialist who recommended steroid therapy for the next 5 days before going back to home dose prednisone. To follow-up with [facility] as outpatient Discharge Date/Time: 08/29/21 12:39
--- NOTE | 2021-08-29 10:18 | W.MHC.F2F ---
Service Date Service Date: 08/29/21 Encounter Date of encounter: 08/29/21 Reasons for Services Signs and symptoms assessed: Physical deconditioning Reason for physical therapy: home safety and mobility and therapeutic exercises Homebound: Leaving the home is medically contraindicated at this time without the asist of a device and/or another person due th the listed conditions above and below. Reason homebound: shortness of breath with minimal effort Certification: Based on the above findings, I certify that this patient is confined to the home and needs intermittent fdc care, physical therapy and/or speech therapy, or continues to need occupational therapy. The patient is under my care, and I have initiated the establishment of the plan of care. The patient will be followed by a physician who will periodically review the plan of care.
== END 2021-08-29 12:39 | disposition home health service (06) | DRG 140 ==
LOC: HO.ED 15:55 → HO.EDOVER 18:34 → HO.S3 08-28 16:11
PROVIDERS: Physician Assistant Medical; Admitting Provider Student in an Organized Health Care Education/Training Program; Emergency Provider Emergency Medicine; PCP Internal Medicine; Visit Provider Student in an Organized Health Care Education/Training Program
DX: J47.1 Bronchiectasis with (acute) exacerbation (principal); J96.20 Acute and chronic respiratory failure, unspecified whether with hypoxia or hypercapnia; Z99.81 Dependence on supplemental oxygen; F32.A Depression, unspecified; E87.1 Hypo-osmolality and hyponatremia; Z20.822 Contact with and (suspected) exposure to COVID-19; Z79.899 Other long term (current) drug therapy
CPT/HCPCS: 36415; 71046; 80048; 80053; 82803; 82947; 83605; 83735; 83880; 84484; 85025; 85027; 85610; 87040; 87635; 93005; 93306; 93970; 94640; 94644; 94645; 94660; 96365; 96375; 97161; 99285; 99291; J1650; J1940; J1956; J2920; J2930; J3475

== ENCOUNTER → 2021-09-15 13:09 | Outpatient (BNVA) | payer OTHER, SELFPAY | PROVIDERS: PCP Internal Medicine; Visit Provider Hospitalist | DX: J96.11 Chronic respiratory failure with hypoxia (principal); J43.2 Centrilobular emphysema; J47.9 Bronchiectasis, uncomplicated; R00.0 Tachycardia, unspecified; R13.10 Dysphagia, unspecified | CPT/HCPCS: 94010; 99212 ==

== ENCOUNTER 2021-10-03 12:31 | Inpatient (IN) | payer OTHER, SELFPAY ==
[2021-10-03] VITALS (8 sets, daily range): BP systolic 133–183; BP diastolic 82–102; PULSE 108–127; RESP 18–24; TEMP 36.6; O2SAT 91–100; BMI 18.6
--- NOTE | ~2021-10-03 | XR_ITS ---
EXAMINATION: XR CHEST CLINICAL INFORMATION: Shortness of breath COMPARISON: Previous chest x-ray most recent August 2021 TECHNIQUE: Frontal view of the chest was obtained. FINDINGS: The cardiac and mediastinal contours are stable. The lungs are well inflated. There is mild bronchiectasis and bronchial wall thickening seen at the lung bases, left greater than right. This may be increased at the left lung base compared to August 2021 exam.. The lungs are otherwise clear. There is no pleural effusion or pneumothorax. Bony structures are unremarkable. XR/XR chest 1V IMPRESSION: Well-inflated lungs. Mild bronchiectasis and bronchial wall thickening at the lung bases, left greater than right. This may be increased at the left lung base compared to previous exams.
[2021-10-03 14:12] LABS: MANUAL DIFF FLAG NO
[2021-10-03 14:13] LABS: Basophils Absolute Auto 0.1 X10*3/uL (0.0-0.2); Basophils Percent Auto 0.7 % (0-2); Eosinophils Absolute Auto 0.1 X10*3/uL (0.0-0.4); Eosinophils Percent Auto 0.9 % (0-4); Hematocrit 43.2 % (37.0-47.0); Hemoglobin 14.7 g/dl (12.0-16.0); Imm Gran Abs Auto 0.07 X10*3/uL (0.00-0.03); Imm Gran Pct Auto 0.6 % (0.0-0.4); Lymphocytes Absolute Auto 0.8 X10*3/uL (1.2-4.9); Lymphocytes Percent Auto 6.2 % (20-40); Mean Corpuscular Hemoglobin 32.1 pg (27.0-33.0); Mean Corpuscular Volume 94.3 fL (80.0-98.0); Mean Platelet Volume 8.6 fL (9.4-12.3); Monocytes Absolute Auto 0.6 X10*3/uL (0.1-1.2); Monocytes Percent Auto 4.4 % (2-11); Neutrophils Absolute Auto 11.1 x10*3/uL (2.0-8.3); Neutrophils Percent Auto 87.2 % (45-73); Platelet Count 421 X10*3/uL (160-400); Red Blood Count 4.58 X10*6/uL (4.20-5.50); Red Cell Distribution Width 12.6 % (11.0-16.0); White Blood Count 12.7 X10*3/uL (4.8-10.8)
[2021-10-03 14:25] LABS: Anion Gap 15 (12-20); Blood Urea Nitrogen 8 mg/dL (9-16); Calcium 9.8 mg/dL (8.4-10.2); Carbon Dioxide 23 mmol/L (22-29); Chloride 101 mmol/L (96-108); Creatinine Clr Calc Pharmacy 67.6; Estimated Glomerular Filt Rate > 60; Glucose Random 101 mg/dL (60-115); Potassium 4.1 mmol/L (3.3-5.1); Sodium 135 mmol/L (135-145)
[2021-10-03 14:27] LABS: COVID-19 Test Negative (Negative); IDNOW Serial# 16C4AD1C
[2021-10-03 14:33] LABS: B Type Natriuretic Peptide 21 pg/mL (<100)
[2021-10-03] MEDS: Albuterol Sulfate (0.083%) 2.5 MG/3 ML VIAL.NEB 7.5 MG INHALE (16:41)
[2021-10-03] MEDS: Albuterol/Iprat 2.5/0.5MG 3 ML AMPUL.NEB INHALE ×2 (16:42→19:10)
[2021-10-03] MEDS: methylPREDNISolone Sod Succ 125 MG/2 ML VIAL IVPUSH (16:55)
--- NOTE | 2021-10-03 17:00 | PC.NURSE ---
pt a&ox3, increased shortness of breath over the past two days worse today. increased effort w inspiration some wheezing noted. respiratory in room w breathing treatment. 20G IV placed left forearm, medicated per provider order. pt reporting some increased anxiety w sob symptoms. no new orders at this time.
--- NOTE | 2021-10-03 17:03 | ED.SOB ---
HPI - SOB/Dyspnea General Chief Complaint: Dyspnea Stated Complaint: COPD/HBP Time Seen by Provider: 10/03/21 16:02 Source: patient Mode of arrival: ambulatory Limitations: no limitations History of Present Illness HPI Narrative: Patient presents to the emergency department for evaluation of worsening shortness of breath and feelings of COPD exacerbation x2 days. She states that typically she uses oxygen only during activity, however over the past 2 days she has been needing to use a even while at rest. She additionally has pedal edema. She is taking her Spiriva and ProAir inhalers as prescribed, using her DuoNeb p.r.n. budesonide updrafts but has not noticed much improvement. She is prescribed prednisone 7 mg every other day in addition to azithromycin 250 mg every other day. In the past she has been on HCTZ because she states that she gets pedal edema in the summer, but this was discontinued as she developed severe hypokalemia due to this. Denies fevers, chills, sore throat, nasal congestion, chest pain, palpitations, nausea, vomiting, abdominal pain, dysuria, numbness or tingling of the extremities, did his weakness. Related Data Home Medications Medication Instructions Recorded Confirmed alendronate 35 mg tablet 35 mg PO QWEEK 11/25/20 08/26/21 amlodipine 10 mg tablet 10 mg PO DAILY 11/25/20 08/26/21 bupropion HCl 300 mg 24 hr tablet, 300 mg PO DAILY 11/25/20 08/26/21 extended release omeprazole 20 mg capsule,delayed 20 mg PO DAILY 11/25/20 08/26/21 release azithromycin 250 mg tablet 250 mg PO MOWEFR 08/26/21 08/26/21 prednisone 1 mg tablet 2 mg PO Q2D 08/26/21 08/26/21 prednisone 2.5 mg tablet 5 mg PO Q2D 08/26/21 08/26/21 Previous Rx's Medication Instructions Recorded albuterol sulfate 90 mcg/actuation 2 puff INHALATION Q6H PRN 90 Days 03/15/21 aerosol inhaler #3 ea budesonide 0.5 mg/2 mL suspension 0.5 mg (2 mL) INHALATION BID 90 03/15/21 for nebulization Days #360 ml ipratropium 0.5 mg-albuterol 3 mg 3 ml INHALATION QID 90 Days #1080 03/15/21 (2.5 mg base)/3 mL nebulization ml soln tiotropium bromide 2.5 2 puff INHALATION DAILY 90 Days #3 03/15/21 mcg/actuation mist for inhalation ea guaifenesin 600 mg tablet, 600 mg PO BID 7 Days #14 tab 08/29/21 extended release 12 hr (Mucinex) Magic Mouthwash 5 ml PO Q6H PRN 30 Days #240 ml 09/15/21 Diphen/Lido/Antacid 1:1:1 240 mL suspension guaifenesin 600 mg tablet, 600 mg PO BID 14 Days #28 tab 09/15/21 extended release 12 hr (Mucinex) megestrol 400 mg/10 mL (10 mL) 200 mg (5 mL) PO BID 30 Days #300 09/15/21 oral suspension ml Allergies Allergy/AdvReac Type Severity Reaction Status Date / Time No Known Allergies Allergy Verified 10/03/21 13:02 Review of Systems Review of Systems: Constitutional : No Fever, No Chills ENT/Mouth : No sore throat, No Rhinorrhea, No Swallowing Difficulty Eyes: No Eye Pain, No Swelling, No Redness Cardiovascular : No Chest Pain, positive SOB, positive Orthopnea, positive Edema Respiratory : Positive Cough, positive Sputum, positive Wheezing, positive dyspnea Gastrointestinal : No Nausea, No Vomiting, No Diarrhea, No abdominal Pain, No Hematochezia, No Melena Genitourinary : No Dysuria, No Urinary Frequency, No Hematuria Musculoskeletal : No joint pain, No Myalgias Skin : No Skin Lesions, No rash Neuro : No Weakness, No Numbness, No Dizziness, No Headache Psych : No Anxiety/Panic, No Depression Heme/Lymph: No Bruising, No Lymphadenopathy Endocrine : No Polyuria, No Polydipsia Yes all other systems are reviewed and are negative PMFSH Past Medical History Attestation statement: The following information was validated with the patient. Medical History Abnormal chest x-ray Acute hyponatremia Bronchiectasis Bronchiectasis Chronic respiratory failure COPD (chronic obstructive pulmonary disease) Dysphagia Dyspnea Personal history of nicotine dependence Social History Social History Household Members: Spouse Housing: Condominium Do you presently have visiting nurse or other home services: No Alcohol intake: current Alcohol intake frequency: a few times a week Alcohol type: beer Patient Tobacco Use Status: Former Tobacco user Tobacco use type: Cigarette Years Smoked: 30 years Use of substances other than those prescribed or required for medical reasons: No Advance Directives: Yes Advance Directives on File: Yes Advance Directives Date on File: 07/18/21 Patient : No service: No Current occupational status: employed Physical Exam Vital Signs: Vital Signs: Last Vital Signs Temp 97.9 F 10/03/21 13:02 Pulse 117 H 10/03/21 18:07 Resp 24 H 10/03/21 18:07 BP 183/95 H 10/03/21 18:07 Pulse Ox 93 10/03/21 18:07 Oxygen Flow Rate 3 10/03/21 13:02 BMI result Body Mass Index 18.6 Vital signs have been reviewed and appeared to be correct. Hypertensive.? Tachycardic.? Respiration rate normal. Temperature normal.? Hypoxia on room air at rest Appearance: Alert.?Oriented to person, place and time. No acute distress.?Normal affect. Eyes: Pupils equal, round and reactive to light.? ENT: Pharynx normal.?? Neck: Normal inspection.? Neck supple.?? CVS: Heart sounds normal. Normal heart rate and rhythm.? Pulses normal.?? Respiratory: Increased work of breathing, sitting in tripoding position Lung sounds type bilaterally faint expiratory wheezing, moving little air Abdomen: Soft and non-tender. Normoactive bowel sounds. Skin: Skin warm and dry.? Normal skin color.? Normal skin turgor.?? Extremities: 2+ bilateral pitting edema. No calf ttp? Neuro: Moves all extremities spontaneously. Sensation intact bilaterally. CN II-XII intact. No focal neuro deficits. Ambulates with normal steady gait. Course Course Course Narrative: Patient is a 61-year-old female with a history of bronchiectasis, COPD, dysphagia presenting to the emergency department for worsening shortness of breath. She presented with increased work of breathing, tachypnea, hypoxia on room air in tachycardia however this is likely secondary to COPD exacerbation rather than sepsis. Will obtain CBC, CMP, EKG, troponin, BNP, chest x-ray. Patient received albuterol total of 10 mg, and ipratropium via nebulizer. Solu-Medrol 125 mg IV, and patient to receive ceftriaxone, as additional coverage to azithromycin for COPD exacerbation. Reevaluation(s) Reevaluation #1: BMP is overall unremarkable, BNP not elevated, 21. CBC reveals mild leukocytosis of 12.7. Troponin is normal, EKG reveals sinus tachycardia, no acute concerns for ischemia. Chest x-ray reveals mild bronchiectasis and bronchial wall thickening at the lung bases left greater than right which may be increased from prior exams. Lung sounds with some improvement, upper lobes are less tight, still with expiratory wheezing, lower lobes do remain significantly diminished. Work of breathing has decreased, she is sitting upright and appears more comfortable. Time: 17:30 Reevaluation #2: Spoke with hospitalist Dr. Prescott, who accepts patient for admission to medicine service for COPD exacerbation. Patient agree's with plan of care. Time: 18:00 MDM - SOB/Dyspnea Medical Records Attestation: I reviewed the patient's medical records. Lab Data Attestation: I reviewed the patient's lab results. Result diagrams: 10/03/21 14:09 10/03/21 14:09 Labs: Lab Results 10/03/21 10/03/21 10/03/21 Range/Units 14:09 14:09 14:09 WBC 12.7 H (4.8-10.8) X10*3/uL RBC 4.58 (4.20-5.50) X10*6/uL Hgb 14.7 (12.0-16.0) g/dl Hct 43.2 (37.0-47.0) % MCV 94.3 (80.0-98.0) fL MCH 32.1 (27.0-33.0) pg MCHC 34.0 (31.0-35.0) g/dl RDW 12.6 (11.0-16.0) % Plt Count 421 H (160-400) X10*3/uL MPV 8.6 L (9.4-12.3) fL Immature Gran % (Auto) 0.6 H (0.0-0.4) % Neut % (Auto) 87.2 H (45-73) % Lymph % (Auto) 6.2 L (20-40) % [place] % (Auto) 4.4 (2-11) % Eos % (Auto) 0.9 (0-4) % Baso % (Auto) 0.7 (0-2) % Lymph # (Auto) 0.8 L (1.2-4.9) X10*3/uL [place] # (Auto) 0.6 (0.1-1.2) X10*3/uL Eos # (Auto) 0.1 (0.0-0.4) X10*3/uL Baso # (Auto) 0.1 (0.0-0.2) X10*3/uL Abs Immat Gran (auto) 0.07 H (0.00-0.03) X10*3/uL Absolute Neuts (auto) 11.1 H (2.0-8.3) x10*3/uL Absolute Nucleated RBC 0.000 (0.0-0.012) X10*3/uL Nucleated RBC % (auto) 0.0 (0.0-0.2) /100WBC Sodium 135 (135-145) mmol/L Potassium 4.1 (3.3-5.1) mmol/L Chloride 101 (96-108) mmol/L Carbon Dioxide 23 (22-29) mmol/L Anion Gap 15 (12-20) BUN 8 L (9-16) mg/dL Creatinine 0.71 (0.5-1.4) mg/dL Estim Creat Clear Calc 67.6 Estimated GFR > 60 Random Glucose 101 (60-115) mg/dL Calcium 9.8 (8.4-10.2) mg/dL Troponin I High Sens < 3.5 (<3.5-17.0) ng/L B-Natriuretic Peptide 21 (<100) pg/mL COVID-19 ([facility]) (Negative) COVID-19 Clin Com 10/03/21 Range/Units 14:09 WBC (4.8-10.8) X10*3/uL RBC (4.20-5.50) X10*6/uL Hgb (12.0-16.0) g/dl Hct (37.0-47.0) % MCV (80.0-98.0) fL MCH (27.0-33.0) pg MCHC (31.0-35.0) g/dl RDW (11.0-16.0) % Plt Count (160-400) X10*3/uL MPV (9.4-12.3) fL Immature Gran % (Auto) (0.0-0.4) % Neut % (Auto) (45-73) % Lymph % (Auto) (20-40) % [place] % (Auto) (2-11) % Eos % (Auto) (0-4) % Baso % (Auto) (0-2) % Lymph # (Auto) (1.2-4.9) X10*3/uL [place] # (Auto) (0.1-1.2) X10*3/uL Eos # (Auto) (0.0-0.4) X10*3/uL Baso # (Auto) (0.0-0.2) X10*3/uL Abs Immat Gran (auto) (0.00-0.03) X10*3/uL Absolute Neuts (auto) (2.0-8.3) x10*3/uL Absolute Nucleated RBC (0.0-0.012) X10*3/uL Nucleated RBC % (auto) (0.0-0.2) /100WBC Sodium (135-145) mmol/L Potassium (3.3-5.1) mmol/L Chloride (96-108) mmol/L Carbon Dioxide (22-29) mmol/L Anion Gap (12-20) BUN (9-16) mg/dL Creatinine (0.5-1.4) mg/dL Estim Creat Clear Calc Estimated GFR Random Glucose (60-115) mg/dL Calcium (8.4-10.2) mg/dL Troponin I High Sens (<3.5-17.0) ng/L B-Natriuretic Peptide (<100) pg/mL COVID-19 ([facility]) Negative (Negative) COVID-19 Clin Com See Note Imaging Data Chest x-ray: Radiologist's impression: XR/XR chest 1V IMPRESSION: Well-inflated lungs. Mild bronchiectasis and bronchial wall thickening at the lung bases, left greater than right. This may be increased at the left lung base compared to previous exams. ECG Data Attestation: I personally reviewed and interpreted this ECG as follows: ECG interpretation date: 10/03/21 ECG interpretation time: 18:36 Prior ECG tracings: available for review Interpretation: Rate: 118 Rhythm:?sinus tachycardia [place]:?normal Normal P waves.? Normal [place].?? Normal QRS complex.?? ST T wave :? No ST elevation, no ST depression, no T wave inversion qTC: 440 prior studies:?August 2021 The study has been interpreted contemporaneously by me. Discharge Plan Discharge Clinical Impression: Acute exacerbation of chronic obstructive airways disease Patient Disposition: Admitted As Inpatient
--- NOTE | 2021-10-03 17:21 | ECG_ITS ---
Test Reason : tachycardia Blood Pressure : / mmHG Vent. Rate : 118 BPM Atrial Rate : 118 BPM P-R Int : 142 ms QRS Dur : 072 ms QT Int : 314 ms P-R-T Axes : 084 078 076 degrees QTc Int : 440 ms Sinus tachycardia Anterior infarct (cited on or before 17-JUL-2021) Abnormal ECG When compared with ECG of 26-AUG-2021 15:26, No significant change was found Referred By: Arlette Miller Electronically Signed By:Mejia Waters
[2021-10-03 17:47] LABS: Troponin-I High Sensitivity < 3.5 ng/L (<3.5-17.0)
[2021-10-03] MEDS: cefTRIAXone sodium 1 GM in 0.9 % Sodium Chloride 50 ML IV (18:20)
--- NOTE | 2021-10-03 18:27 | PC.NURSE ---
pt a&ox3, tachycardia, hypertension, 92% o2 on 3.5L. pt pursed lip breathing, increased respiration effort at rest. medicated per provider order, per provider okay to start antibiotics without cultures. EKG obtained. hospitalist in room w pt.
--- NOTE | 2021-10-03 18:42 | PM.IMHP ---
History of Present Illness Date of Service: 10/03/21 Chief Complaint: Shortness of breath Patient presents to the emergency department for evaluation of worsening shortness of breath and feelings of COPD exacerbation x2 days.? She states that typically she uses oxygen only during activity, however over the past 2 days she has been needing to use a even while at rest.? She additionally has pedal edema. She? is taking her Spiriva and ProAir inhalers as prescribed, using her DuoNeb p.r.n. budesonide updrafts but has not noticed much improvement.? She is prescribed prednisone 7 mg every other day in addition to azithromycin 250 mg every other day. ER course Chest x-ray demonstrates mild bronchiectasis; given a dose of ceftriaxone, Solu-Medrol 120 mg and DuoNeb with minimal effect. Patient sat 90% on 3.5 L which she uses at home. White count is mildly elevated at 12.7 otherwise other diagnostics are unremarkable. She is COVID negative Review of Systems Review of Systems: Denies chest pain Admit states shortness of breath at rest worse with minimal exertion Admits nausea; denies vomiting diarrhea Denies fever chills PMFSH Medical History Abnormal chest x-ray Acute hyponatremia Bronchiectasis Bronchiectasis Chronic respiratory failure COPD (chronic obstructive pulmonary disease) Dysphagia Dyspnea Personal history of nicotine dependence Social History Household Members: Spouse Housing: [facility] Do you presently have visiting nurse or other home services: No Alcohol intake: current Alcohol intake frequency: a few times a week Alcohol type: beer Patient Tobacco Use Status: Former Tobacco user Tobacco use type: Cigarette Years Smoked: 30 years Use of substances other than those prescribed or required for medical reasons: No Advance Directives: Yes Advance Directives on File: Yes Advance Directives Date on File: 07/18/21 Patient : No service: No Current occupational status: employed Meds Allergies Allergy/AdvReac Type Severity Reaction Status Date / Time No Known Allergies Allergy Verified 10/03/21 13:02 Active Medications: Current Medications Acetaminophen (Acetaminophen 325 Mg Tablet) 650 mg PO Q6H PRN PRN Reason: Pain, Mild (Pain Scale 1-3) Albuterol/Ipratropium (Albuterol/Iprat 2.5/0.5mg 3 Ml Ampul.Neb) 3 ml INHALE RQ4H WHILE AWAKE [facility] Enoxaparin Sodium (Enoxaparin Sodium 40 Mg/0.4 Ml Syringe) 40 mg SUBCUT Q24H [facility] Guaifenesin (Guaifenesin La 600 Mg Tab.Er.12h) 600 mg PO BID [facility] Ceftriaxone Sodium 1 gm/ (Sodium Chloride) 50 mls @ 100 mls/hr IV Q24H [facility] Doxycycline Hyclate 100 mg/ (Sodium Chloride) 250 mls @ 166.67 mls/hr IV Q12H [facility] Dextrose/Sodium Chloride (D51/2ns) 1,000 mls @ 100 mls/hr IVCONT .Q10H [facility] Melatonin (Melatonin 3 Mg Tablet) 6 mg PO BEDTIME PRN PRN Reason: Insomnia Methylprednisolone Sodium Succinate (Methylprednisolone Sod Succ 125 Mg/2 Ml Vial) 80 mg IVPUSH Q6H [facility] Morphine Sulfate (Morphine Sulfate 2 Mg/Ml Cartridge) 2 mg IVPUSH Q3H PRN; Protocol PRN Reason: anxiety/restlessness Pharmacy Consult (Consult Rx Perform Med Rec) 1 each MISCELLANE ONCE PRN PRN Reason: Consult order Sodium Chloride (0.9 % Sodium Chloride Flush 3 Ml Syringe) 3 ml IVFLUSH QSHIFT [facility] Home Medications Medication Instructions Recorded Confirmed Last Taken Type alendronate 35 mg tablet 35 mg PO QWEEK 11/25/20 08/26/21 08/20/21 History amlodipine 10 mg tablet 10 mg PO DAILY 11/25/20 08/26/21 Unknown History bupropion HCl 300 mg 24 hr tablet, 300 mg PO DAILY 11/25/20 08/26/21 Unknown History extended release omeprazole 20 mg capsule,delayed 20 mg PO DAILY 11/25/20 08/26/21 Unknown History release azithromycin 250 mg tablet 250 mg PO MOWEFR 08/26/21 08/26/21 08/25/21 History prednisone 1 mg tablet 2 mg PO Q2D 08/26/21 08/26/21 08/26/21 History prednisone 2.5 mg tablet 5 mg PO Q2D 08/26/21 08/26/21 08/26/21 History Physical Exam Vital Signs and Narrative: Vital Signs: Last Vital Signs Temp 97.9 F 10/03/21 13:02 Pulse 117 H 10/03/21 18:07 Resp 24 H 10/03/21 18:07 BP 183/95 H 10/03/21 18:07 Pulse Ox 93 10/03/21 18:07 Oxygen Flow Rate 3 10/03/21 13:02 BMI result Body Mass Index 18.6 Const: Other: Awake alert able to speak in short sentences and a semi-Boudreaux's position HEENT: Other: Membranes dry Resp: Other: Extremely diminished all feels with and expiratory crackles at bases. No wheezes appreciated Cardio: Other: Tachycardic; no S4; positive S1-S2; no S3 murmurs rubs or gallops GI: Other: Soft nontender nondistended normoactive bowel sounds. No acute peritoneal signs Neuro: Other: Cranial nerves 2-12 grossly intact as tested; motor is 5/5 all extremities sensation intact cognition is anxious Extrem: Other: Trace pedal edema bilaterally Results Labs CBC and Chem 7: 10/03/21 14:09 10/03/21 14:09 Labs: Laboratory Results - last 24 hr 10/03/21 10/03/21 10/03/21 14:09 14:09 14:09 MCV 94.3 MCH 32.1 MCHC 34.0 RDW 12.6 Plt Count 421 H MPV 8.6 L Immature Gran % (Auto) 0.6 H Neut % (Auto) 87.2 H Lymph % (Auto) 6.2 L [place] % (Auto) 4.4 Eos % (Auto) 0.9 Baso % (Auto) 0.7 Lymph # (Auto) 0.8 L [place] # (Auto) 0.6 Eos # (Auto) 0.1 Baso # (Auto) 0.1 Abs Immat Gran (auto) 0.07 H Absolute Neuts (auto) 11.1 H Absolute Nucleated RBC 0.000 Nucleated RBC % (auto) 0.0 Anion Gap 15 Estim Creat Clear Calc 67.6 Estimated GFR > 60 Random Glucose 101 Calcium 9.8 Troponin I High Sens < 3.5 B-Natriuretic Peptide 21 COVID-19 ([facility]) COVID-19 Clin Com 10/03/21 14:09 MCV MCH MCHC RDW Plt Count MPV Immature Gran % (Auto) Neut % (Auto) Lymph % (Auto) [place] % (Auto) Eos % (Auto) Baso % (Auto) Lymph # (Auto) [place] # (Auto) Eos # (Auto) Baso # (Auto) Abs Immat Gran (auto) Absolute Neuts (auto) Absolute Nucleated RBC Nucleated RBC % (auto) Anion Gap Estim Creat Clear Calc Estimated GFR Random Glucose Calcium Troponin I High Sens B-Natriuretic Peptide COVID-19 ([facility]) Negative COVID-19 Clin Com See Note Imaging Radiologist's Impressions: Impressions Chest X-Ray 10/03/21 13:16 IMPRESSION: Well-inflated lungs. Mild bronchiectasis and bronchial wall thickening at the lung bases, left greater than right. This may be increased at the left lung base compared to previous exams. Assessment and Plan (1) Acute exacerbation of chronic obstructive airways disease: Status: Acute (2) GERD (gastroesophageal reflux disease): Status: Acute (3) Hypertension: Status: Acute Plan 61-year-old female with known history of COPD oxygen dependent at home presents with worsening shortness of breath that started acutely approximately 3 days ago. She does recount some scant sputum production however denies fever and chills. In the emergency room she had minimal response to a DuoNeb treatment and Solu-Medrol 1. COPD exacerbation -IV ceftriaxone/doxycycline; will switch to p.o. when able to take orals. .. Extremely anxious and nauseous -DuoNebs q.4 hours while awake -methylprednisolone 80 mg q.6 times 24 hours -small dose morphine to improve breathing quality and decreased anxiety -O2 to maintain sats greater or equal than 88% 2. Hypertension -poorly controlled now most likely 2nd to anxiety. . . Follow-up clinically -continue amlodipine -adjust therapies based on clinical response 3. GERD -continue omeprazole daily -add H2RA if breakthrough 4. Anxiety -restart oral meds in a.m. Lovenox Full code Patient will require at least 1-2 midnights going forward for treatment of COPD exacerbation that has failed outpatient therapies. This will include IV antibiotics and IV steroids and multiple nebulizer treatments. This cannot be accomplished and a less acute setting Quality Stroke Does the patient have a stroke diagnosis?: No VTE Prior VTE?: No VTE Risk Level:: Medical - moderate - high VTE Device Contraindication: Treatment Not Indicated VTE Drug Contraindication: N/A - Med Ordered
[2021-10-03] MEDS: Morphine Sulfate 2 MG/ML CARTRIDGE IVPUSH ×2 (18:49→22:11)
[2021-10-03] MEDS: Dextrose 5 % and 0.45 % NaCl 1,000 ML 100 ML IVCONT (18:57)
--- NOTE | 2021-10-03 19:13 | PHA.MEDREC ---
Pharmacy Consult ? Medication Reconciliation Pharmacy has completed the medication reconciliation.
[2021-10-03] MEDS: Enoxaparin Sodium 40 MG/0.4 ML SYRINGE SUBCUT (19:32)
[2021-10-03] MEDS: Doxycycline Hyclate 100 MG in 0.9 % Sodium Chloride 250 ML 166.67 MG IV (19:32)
[2021-10-03] MEDS: guaiFENesin LA 600 MG TAB.ER.12H PO (19:33)
[2021-10-03] MEDS: methylPREDNISolone Sod Succ 125 MG/2 ML VIAL 80 MG IVPUSH (22:12)
[2021-10-03] MEDS: LORazepam 2 MG/ML VIAL 0.5 MG IVPUSH (23:31)
[2021-10-04] VITALS (11 sets, daily range): BP systolic 140–162; BP diastolic 75–87; PULSE 76–119; RESP 12–24; TEMP 36.4–36.7; O2SAT 89–98
[2021-10-04 04:39] LABS: Hematocrit 37.1 % (37.0-47.0); Hemoglobin 12.8 g/dl (12.0-16.0); Imm Gran Abs Auto 0.04 X10*3/uL (0.00-0.03); Imm Gran Pct Auto 0.6 % (0.0-0.4); Lymphocytes Absolute Auto 0.4 X10*3/uL (1.2-4.9); Lymphocytes Percent Auto 6.1 % (20-40); MANUAL DIFF FLAG SCAN; Mean Corpuscular HGB Conc 34.5 g/dl (31.0-35.0); Mean Corpuscular Hemoglobin 32.5 pg (27.0-33.0); Mean Corpuscular Volume 94.2 fL (80.0-98.0); Mean Platelet Volume 8.9 fL (9.4-12.3); Monocytes Absolute Auto 0.2 X10*3/uL (0.1-1.2); Monocytes Percent Auto 2.2 % (2-11); Neutrophils Absolute Auto 6.3 x10*3/uL (2.0-8.3); Neutrophils Percent Auto 91.1 % (45-73); Platelet Count 355 X10*3/uL (160-400); Red Blood Count 3.94 X10*6/uL (4.20-5.50); Red Cell Distribution Width 12.2 % (11.0-16.0); SCAN SMEAR FLAG 1; White Blood Count 6.9 X10*3/uL (4.8-10.8)
[2021-10-04 04:54] LABS: Alanine Aminotransferase 10 U/L (0-31); Albumin Level 3.6 g/dL (3.5-5.0); Alkaline Phosphatase 50 U/L (39-117); Anion Gap 12 (12-20); Aspartate Amino Transferase 14 U/L (5-31); Bilirubin Total 0.6 mg/dL (0.0-1.0); Blood Urea Nitrogen 10 mg/dL (9-16); Calcium 8.8 mg/dL (8.4-10.2); Carbon Dioxide 23 mmol/L (22-29); Chloride 99 mmol/L (96-108); Estimated Glomerular Filt Rate > 60; Glucose Fasting 274 mg/dL (60-99); Potassium 4.2 mmol/L (3.3-5.1); Sodium 130 mmol/L (135-145); Total Protein 5.8 g/dL (6.5-8.0)
[2021-10-04 04:58] LABS: SLIDE REVIEW VERIFIED
[2021-10-04] MEDS: Dextrose 5 % and 0.45 % NaCl 1,000 ML 100 ML IVCONT ×2 (05:28→15:30)
[2021-10-04] MEDS: methylPREDNISolone Sod Succ 125 MG/2 ML VIAL 80 MG IVPUSH ×4 (05:28→22:31)
[2021-10-04] MEDS: Omeprazole 40 MG CAPSULE.DR PO (05:29)
[2021-10-04] MEDS: Morphine Sulfate 2 MG/ML CARTRIDGE IVPUSH ×2 (05:29→14:10)
--- NOTE | 2021-10-04 06:00 | PC.NURSE ---
I assumed care of this pt at 1900. Alka is admitted to the hospital and verbalizes an understanding of this - she is awaiting a bed assignment. Prior to midnight Alka had severeal periods of anxiety/HR of 140's/RR of 32/pulse Ox of 88% on 4L nasal cannula alternating with periods of relative calm/O2 sats 95% on 4L NC/RR 24/HR 110's. This occured 4-5 times in the course of my first 4-5 hours with her. Morphine 2mg IVP PRN was ordered for :anxiety/restlessness and I administered this but Alka did not admit to much relief. Therefore, I notified Pastora DARNELL and Ativan 0.5mg IVP was administered. After this the pt did not have further episodes of anxiety and increased HR and she was able to sleep through the night until 0530. Currently she is alert, oriented x 3. She makes eye contact with RN, is cooperative, normal affect. There is obvious facial flushing that pt states is not new. Currently RR is 24, non-labored. Sat's on 4L nasal cannula are 93-95%. She is taking PO fluids without difficulty. We will continue to monitor Dora.
[2021-10-04] MEDS: Albuterol/Iprat 2.5/0.5MG 3 ML AMPUL.NEB INHALE ×4 (07:54→20:00)
[2021-10-04] MEDS: guaiFENesin LA 600 MG TAB.ER.12H PO ×2 (08:12→19:33)
[2021-10-04] MEDS: Doxycycline Hyclate 100 MG in 0.9 % Sodium Chloride 250 ML 166.67 MG IV ×2 (08:12→19:33)
[2021-10-04] MEDS: LORazepam 2 MG/ML VIAL 0.5 MG IVPUSH ×2 (10:50→17:34)
--- NOTE | 2021-10-04 12:39 | PC.NURSE ---
Pt arrives to overflow from the main ED, A&OX4, RR increased with any exertion or lying flat.On4L NC with appropriate O2 sats at this time. Pt lungs CTA, ST after exertion at this time. No complaints of pain, IV fluids running as per MAR orders at this time. Call hernandez within reach. Purewick in place due to desat's that occur with getting OOB to commode. Will continue to monitor.
--- NOTE | 2021-10-04 13:15 | MHC.CM.PN ---
Met with pt to discuss d/c planning: Pt resides with spouse and has [employer] for O2 and a [facility] supplied vendor for her nebulizer, chest vest for percussion. No services anticipated: Spouse to transport home. [email or web address] x3.
--- NOTE | 2021-10-04 15:58 | HO.PM.IMPN ---
Subjective Subjective Date of Service: 10/04/21 Interval History: Notes improvement with IV Ativan. Able to take small amounts of orals Review of Systems Denies chest pain Admit states shortness of breath at rest worse with minimal exertion Admits nausea; denies vomiting diarrhea Denies fever chills Physical Exam Vital Signs: Vital Signs: Last Vital Signs Temp 98.0 F 10/04/21 06:30 Pulse 109 H 10/04/21 15:12 Resp 20 10/04/21 15:12 BP 153/75 H 10/04/21 12:37 Pulse Ox 95 10/04/21 12:37 Oxygen Flow Rate 3 10/03/21 13:02 BMI result Body Mass Index 18.6 Const: Other: Awake alert able to speak in short sentences and a semi-Boudreaux's position HEENT: Other: Membranes dry Resp: Other: Extremely diminished all feels with and expiratory crackles at bases. No wheezes appreciated Cardio: Other: Tachycardic; no S4; positive S1-S2; no S3 murmurs rubs or gallops GI: Other: Soft nontender nondistended normoactive bowel sounds. No acute peritoneal signs Neuro: Other: Cranial nerves 2-12 grossly intact as tested; motor is 5/5 all extremities sensation intact cognition is anxious Extrem: Other: Trace pedal edema bilaterally Objective Data Active Medications Acetaminophen (Acetaminophen 325 Mg Tablet) 650 mg PO Q6H PRN PRN Reason: Pain, Mild (Pain Scale 1-3) Albuterol/Ipratropium (Albuterol/Iprat 2.5/0.5mg 3 Ml Ampul.Neb) 3 ml INHALE RQ4H WHILE AWAKE [facility] Last Admin: 10/04/21 15:10 Dose: 3 ml Documented by: BETH Enoxaparin Sodium (Enoxaparin Sodium 40 Mg/0.4 Ml Syringe) 40 mg SUBCUT Q24H [facility] Last Admin: 10/03/21 19:32 Dose: 40 mg Documented by: TRACY Guaifenesin (Guaifenesin La 600 Mg Tab.Er.12h) 600 mg PO BID [facility] Last Admin: 10/04/21 08:12 Dose: 600 mg Documented by: ROBERT Ceftriaxone Sodium 1 gm/ (Sodium Chloride) 50 mls @ 100 mls/hr IV Q24H [facility] Doxycycline Hyclate 100 mg/ (Sodium Chloride) 250 mls @ 166.67 mls/hr IV Q12H [facility] Last Infusion: 10/04/21 09:59 Dose: 0 mls/hr Documented by: ROBERT Dextrose/Sodium Chloride (D51/2ns) 1,000 mls @ 100 mls/hr IVCONT .Q10H [facility] Last Admin: 10/04/21 15:30 Dose: 100 mls/hr Documented by: KALPANA Lorazepam (Lorazepam 2 Mg/Ml Vial) 0.5 mg IVPUSH Q6H PRN PRN Reason: anxiety/restlessness Last Admin: 10/04/21 10:50 Dose: 0.5 mg Documented by: ROBERT Melatonin (Melatonin 3 Mg Tablet) 6 mg PO BEDTIME PRN PRN Reason: Insomnia Methylprednisolone Sodium Succinate (Methylprednisolone Sod Succ 125 Mg/2 Ml Vial) 80 mg IVPUSH Q6H [facility] Last Admin: 10/04/21 10:49 Dose: 80 mg Documented by: ROBERT Morphine Sulfate (Morphine Sulfate 2 Mg/Ml Cartridge) 2 mg IVPUSH Q3H PRN; Protocol PRN Reason: anxiety/restlessness Last Admin: 10/04/21 14:10 Dose: 2 mg Documented by: KALPANA Omeprazole (Omeprazole 40 Mg Capsule.Dr) 40 mg PO DAILY@0630 [facility] Last Admin: 10/04/21 05:29 Dose: 40 mg Documented by: TRACY Pharmacy Consult (Consult Rx Perform Med Rec) 1 each MISCELLANE ONCE PRN PRN Reason: Consult order Sodium Chloride (0.9 % Sodium Chloride Flush 3 Ml Syringe) 3 ml IVFLUSH QSHIFT [facility] Last Admin: 10/04/21 15:38 Dose: Not Given Documented by: KALPANA Non-Admin Reason: IV Running Labs CBC & Chem 7: 10/04/21 04:09 10/04/21 04:09 Labs: Laboratory Results - last 24 hr 10/03/21 10/04/21 10/04/21 14:09 04:09 04:09 MCV 94.2 MCH 32.5 MCHC 34.5 RDW 12.2 Plt Count 355 MPV 8.9 L Immature Gran % (Auto) 0.6 H Neut % (Auto) 91.1 H Lymph % (Auto) 6.1 L [place] % (Auto) 2.2 Eos % (Auto) 0.0 Baso % (Auto) 0.0 Lymph # (Auto) 0.4 L [place] # (Auto) 0.2 Eos # (Auto) 0.0 Baso # (Auto) 0.0 Abs Immat Gran (auto) 0.04 H Absolute Neuts (auto) 6.3 Absolute Nucleated RBC 0.000 Nucleated RBC % (auto) 0.0 Smear Tech's Comments VERIFIED Anion Gap 12 Estim Creat Clear Calc 64.0 Estimated GFR > 60 Fasting Glucose 274 H Calcium 8.8 D Total Bilirubin 0.6 AST 14 ALT 10 Alkaline Phosphatase 50 D Troponin I High Sens < 3.5 Total Protein 5.8 L D Albumin 3.6 Assessment and Plan (1) Acute exacerbation of chronic obstructive airways disease: Status: Acute (2) Hypertension: Status: Acute (3) GERD (gastroesophageal reflux disease): Status: Acute Plan 61-year-old female with known history of COPD oxygen dependent at home presents with worsening shortness of breath that started acutely approximately 3 days ago. She does recount some scant sputum production however denies fever and chills. In the emergency room she had minimal response to a DuoNeb treatment and Solu-Medrol 1. COPD exacerbation -IV ceftriaxone/doxycycline; improved with therapies -DuoNebs q.4 hours while awake -methylprednisolone 80 mg q.6 times 24 hours -small dose IV Ativan p.r.n. -O2 to maintain sats greater or equal than 88% 2. Hypertension -improved; acceptable on current therapies -continue amlodipine -adjust therapies based on clinical response 3. GERD -continue omeprazole daily -add H2RA if breakthrough 4. Anxiety -restart oral meds in a.m. Lovenox Full code Patient will require hospitalization for treatment of COPD exacerbation that has failed outpatient therapies. This will include IV antibiotics and IV steroids and multiple nebulizer treatments. Quality Stroke Does the patient have a stroke diagnosis?: No VTE Prior VTE?: No VTE Risk Level:: Medical - moderate - high VTE Device Contraindication: Treatment Not Indicated VTE Drug Contraindication: N/A - Med Ordered
--- NOTE | 2021-10-04 16:56 | PC.NURSE ---
Pt's family is upset about new patient placed in bed next to her, nursing ride assembly supervisor made aware as well as MD per visitor request
[2021-10-04] MEDS: cefTRIAXone sodium 1 GM in 0.9 % Sodium Chloride 50 ML IV (17:34)
[2021-10-04] MEDS: Enoxaparin Sodium 40 MG/0.4 ML SYRINGE SUBCUT (19:33)
[2021-10-04] MEDS: 0.9 % Sodium Chloride Flush 3 ML SYRINGE IVFLUSH (19:34)
[2021-10-04] MEDS: Melatonin 3 MG TABLET 6 MG PO (22:33)
[2021-10-05] VITALS (9 sets, daily range): BP systolic 142–168; BP diastolic 67–91; PULSE 83–109; RESP 16–20; TEMP 36.6–37.1; O2SAT 91–100
[2021-10-05] MEDS: Dextrose 5 % and 0.45 % NaCl 1,000 ML 100 ML IVCONT ×2 (02:45→16:00)
[2021-10-05] MEDS: Albuterol/Iprat 2.5/0.5MG 3 ML AMPUL.NEB INHALE ×4 (03:24→19:45)
[2021-10-05] MEDS: methylPREDNISolone Sod Succ 125 MG/2 ML VIAL 80 MG IVPUSH ×4 (05:54→22:46)
[2021-10-05] MEDS: Omeprazole 40 MG CAPSULE.DR PO (05:54)
[2021-10-05 06:36] LABS: Basophils Percent Auto 0.1 % (0-2); Hematocrit 35.5 % (37.0-47.0); Hemoglobin 11.8 g/dl (12.0-16.0); Imm Gran Abs Auto 0.19 X10*3/uL (0.00-0.03); Imm Gran Pct Auto 0.9 % (0.0-0.4); Lymphocytes Absolute Auto 0.4 X10*3/uL (1.2-4.9); Lymphocytes Percent Auto 2.1 % (20-40); MANUAL DIFF FLAG SCAN; Mean Corpuscular HGB Conc 33.2 g/dl (31.0-35.0); Mean Corpuscular Hemoglobin 32.2 pg (27.0-33.0); Mean Corpuscular Volume 96.7 fL (80.0-98.0); Mean Platelet Volume 9.1 fL (9.4-12.3); Monocytes Absolute Auto 0.6 X10*3/uL (0.1-1.2); Monocytes Percent Auto 2.9 % (2-11); Neutrophils Absolute Auto 19.1 x10*3/uL (2.0-8.3); Platelet Count 352 X10*3/uL (160-400); Red Blood Count 3.67 X10*6/uL (4.20-5.50); Red Cell Distribution Width 12.4 % (11.0-16.0); SCAN SMEAR FLAG 1; White Blood Count 20.3 X10*3/uL (4.8-10.8)
[2021-10-05 07:02] LABS: SLIDE REVIEW VERIFIED
[2021-10-05 07:06] LABS: Alanine Aminotransferase 13 U/L (0-31); Albumin Level 3.4 g/dL (3.5-5.0); Alkaline Phosphatase 47 U/L (39-117); Anion Gap 11 (12-20); Aspartate Amino Transferase 20 U/L (5-31); Bilirubin Total 0.4 mg/dL (0.0-1.0); Blood Urea Nitrogen 5 mg/dL (9-16); Calcium 8.9 mg/dL (8.4-10.2); Carbon Dioxide 25 mmol/L (22-29); Chloride 101 mmol/L (96-108); Estimated Glomerular Filt Rate > 60; Glucose Fasting 213 mg/dL (60-99); Potassium 3.8 mmol/L (3.3-5.1); Sodium 133 mmol/L (135-145); Total Protein 5.6 g/dL (6.5-8.0)
[2021-10-05] MEDS: Doxycycline Hyclate 100 MG in 0.9 % Sodium Chloride 250 ML 166.67 MG IV ×2 (07:32→19:35)
[2021-10-05] MEDS: guaiFENesin LA 600 MG TAB.ER.12H PO ×2 (07:33→19:34)
[2021-10-05] MEDS: Acetaminophen 325 MG TABLET 650 MG PO ×2 (07:36→19:34)
--- NOTE | 2021-10-05 10:13 | MHC.CLN ---
PT WITH POOR PO GLASS BENDER AND C/O NAUSEA PT IS 88% IBW WITH BMI 18.6 PT WITH 12% SIGNIFICANT WT LOSS X 6 MONTHS RECOMMEND ADDING ENSURE BID TO INCREASE KCALS SUPP TO PROVIDE 700KCALS, 40G PROTEIN FULL ASSESSMENT TO FOLLOW
--- NOTE | 2021-10-05 12:24 | HO.PM.IMPN ---
Subjective Subjective Date of Service: 10/05/21 Interval History: Still short of breath with minimal exertion. .. Much more comfortable today Review of Systems Denies chest pain Admit states shortness of breath at rest worse with minimal exertion Admits nausea; denies vomiting diarrhea Denies fever chills Physical Exam Vital Signs: Vital Signs: Last Vital Signs Temp 98.2 F 10/05/21 11:48 Pulse 99 10/05/21 11:48 Resp 18 10/05/21 11:48 BP 142/67 H 10/05/21 11:48 Pulse Ox 98 10/05/21 11:48 Oxygen Flow Rate 3 10/03/21 13:02 BMI result Body Mass Index 18.6 Const: Other: Awake alert able to speak in short sentences and a semi-Boudreaux's position HEENT: Other: Membranes dry Resp: Other: Extremely diminished all feels with and expiratory crackles at bases. No wheezes appreciated Cardio: Other: Tachycardic; no S4; positive S1-S2; no S3 murmurs rubs or gallops GI: Other: Soft nontender nondistended normoactive bowel sounds. No acute peritoneal signs Neuro: Other: Cranial nerves 2-12 grossly intact as tested; motor is 5/5 all extremities sensation intact cognition is anxious Extrem: Other: Trace pedal edema bilaterally Objective Data Active Medications Acetaminophen (Acetaminophen 325 Mg Tablet) 650 mg PO Q6H PRN PRN Reason: Pain, Mild (Pain Scale 1-3) Last Admin: 10/05/21 07:36 Dose: 650 mg Documented by: VANESSA Albuterol/Ipratropium (Albuterol/Iprat 2.5/0.5mg 3 Ml Ampul.Neb) 3 ml INHALE RQ4H WHILE AWAKE [facility] Last Admin: 10/05/21 07:48 Dose: 3 ml Documented by: SYBIL Enoxaparin Sodium (Enoxaparin Sodium 40 Mg/0.4 Ml Syringe) 40 mg SUBCUT Q24H [facility] Last Admin: 10/04/21 19:33 Dose: 40 mg Documented by: ROBBIE Guaifenesin (Guaifenesin La 600 Mg Tab.Er.12h) 600 mg PO BID [facility] Last Admin: 10/05/21 07:33 Dose: 600 mg Documented by: VANESSA Ceftriaxone Sodium 1 gm/ (Sodium Chloride) 50 mls @ 100 mls/hr IV Q24H [facility] Last Infusion: 10/04/21 19:12 Dose: 0 mls/hr Documented by: ROBBIE Doxycycline Hyclate 100 mg/ (Sodium Chloride) 250 mls @ 166.67 mls/hr IV Q12H [facility] Last Infusion: 10/05/21 09:12 Dose: 0 mls/hr Documented by: VANESSA Dextrose/Sodium Chloride (D51/2ns) 1,000 mls @ 100 mls/hr IVCONT .Q10H [facility] Last Admin: 10/05/21 10:41 Dose: Not Given Documented by: VANESSA Non-Admin Reason: IV Running Lorazepam (Lorazepam 2 Mg/Ml Vial) 0.5 mg IVPUSH Q6H PRN PRN Reason: anxiety/restlessness Last Admin: 10/04/21 17:34 Dose: 0.5 mg Documented by: KALPANA Melatonin (Melatonin 3 Mg Tablet) 6 mg PO BEDTIME PRN PRN Reason: Insomnia Last Admin: 10/04/21 22:33 Dose: 6 mg Documented by: ROBBIE Methylprednisolone Sodium Succinate (Methylprednisolone Sod Succ 125 Mg/2 Ml Vial) 80 mg IVPUSH Q6H [facility] Last Admin: 10/05/21 10:37 Dose: 80 mg Documented by: VANESSA Morphine Sulfate (Morphine Sulfate 2 Mg/Ml Cartridge) 2 mg IVPUSH Q3H PRN; Protocol PRN Reason: anxiety/restlessness Last Admin: 10/04/21 14:10 Dose: 2 mg Documented by: KALPANA Omeprazole (Omeprazole 40 Mg Capsule.) 40 mg PO DAILY@0630 [facility] Last Admin: 10/05/21 05:54 Dose: 40 mg Documented by: ROBBIE Pharmacy Consult (Consult Rx Perform Med Rec) 1 each MISCELLANE ONCE PRN PRN Reason: Consult order Sodium Chloride (0.9 % Sodium Chloride Flush 3 Ml Syringe) 3 ml IVFLUSH QSHIFT [facility] Last Admin: 10/05/21 07:32 Dose: Not Given Documented by: VANESSA Non-Admin Reason: IV Running Labs CBC & Chem 7: 10/05/21 06:07 10/05/21 06:07 Labs: Laboratory Results - last 24 hr 10/05/21 10/05/21 06:07 06:07 MCV 96.7 MCH 32.2 MCHC 33.2 RDW 12.4 Plt Count 352 MPV 9.1 L Immature Gran % (Auto) 0.9 H Neut % (Auto) 94.0 H Lymph % (Auto) 2.1 L [place] % (Auto) 2.9 Eos % (Auto) 0.0 Baso % (Auto) 0.1 Lymph # (Auto) 0.4 L [place] # (Auto) 0.6 Eos # (Auto) 0.0 Baso # (Auto) 0.0 Abs Immat Gran (auto) 0.19 H Absolute Neuts (auto) 19.1 H Absolute Nucleated RBC 0.000 Nucleated RBC % (auto) 0.0 Smear Tech's Comments VERIFIED Anion Gap 11 L Estim Creat Clear Calc 75.0 Estimated GFR > 60 Fasting Glucose 213 H Calcium 8.9 Total Bilirubin 0.4 AST 20 D ALT 13 Alkaline Phosphatase 47 Total Protein 5.6 L Albumin 3.4 L Assessment and Plan (1) Acute exacerbation of chronic obstructive airways disease: Status: Acute (2) Hypertension: Status: Acute (3) GERD (gastroesophageal reflux disease): Status: Acute Plan 61-year-old female with known history of COPD oxygen dependent at home presents with worsening shortness of breath that started acutely approximately 3 days ago. She does recount some scant sputum production however denies fever and chills. In the emergency room she had minimal response to a DuoNeb treatment and Solu-Medrol 1. COPD exacerbation/and states COPD -IV ceftriaxone/doxycycline; improved with therapies -DuoNebs q.4 hours while awake -methylprednisolone 60 mg q.6 -small dose IV Ativan p.r.n. -O2 to maintain sats greater or equal than 88% -discussed and states issues with significant other 2. Hypertension -improved; acceptable on current therapies -continue amlodipine -adjust therapies based on clinical response 3. GERD -continue omeprazole daily -add H2RA if breakthrough 4. Anxiety -restart oral meds in a.m. Lovenox Full code Patient will require hospitalization for treatment of COPD exacerbation that has failed outpatient therapies. This will include IV antibiotics and IV steroids and multiple nebulizer treatments. Quality Stroke Does the patient have a stroke diagnosis?: No VTE Prior VTE?: No VTE Risk Level:: Medical - moderate - high VTE Device Contraindication: Treatment Not Indicated VTE Drug Contraindication: N/A - Med Ordered
[2021-10-05] MEDS: cefTRIAXone sodium 1 GM in 0.9 % Sodium Chloride 50 ML IV (16:38)
[2021-10-05] MEDS: LORazepam 2 MG/ML VIAL 0.5 MG IVPUSH (17:20)
[2021-10-05] MEDS: Enoxaparin Sodium 40 MG/0.4 ML SYRINGE SUBCUT (19:34)
[2021-10-05] MEDS: 0.9 % Sodium Chloride Flush 3 ML SYRINGE IVFLUSH ×2 (19:35→22:46)
[2021-10-05] MEDS: Melatonin 3 MG TABLET 6 MG PO (22:46)
[2021-10-06] VITALS (11 sets, daily range): BP systolic 136–171; BP diastolic 71–86; PULSE 9–100; RESP 16–20; TEMP 36.5–36.8; O2SAT 85–97; BMI 18.6
[2021-10-06] MEDS: Dextrose 5 % and 0.45 % NaCl 1,000 ML 100 ML IVCONT ×2 (03:29→21:50)
[2021-10-06] MEDS: guaiFENesin DM 100/10/5 ML 5 ML SYRUP PO ×2 (03:47→19:44)
[2021-10-06] MEDS: methylPREDNISolone Sod Succ 125 MG/2 ML VIAL 80 MG IVPUSH ×4 (05:49→21:47)
[2021-10-06] MEDS: Omeprazole 40 MG CAPSULE.DR PO (05:49)
[2021-10-06 06:24] LABS: Basophils Percent Auto 0.1 % (0-2); Hematocrit 35.8 % (37.0-47.0); Hemoglobin 12.2 g/dl (12.0-16.0); Imm Gran Abs Auto 0.16 X10*3/uL (0.00-0.03); Imm Gran Pct Auto 0.9 % (0.0-0.4); Lymphocytes Absolute Auto 0.3 X10*3/uL (1.2-4.9); Lymphocytes Percent Auto 1.6 % (20-40); MANUAL DIFF FLAG SCAN; Mean Corpuscular HGB Conc 34.1 g/dl (31.0-35.0); Mean Corpuscular Hemoglobin 32.4 pg (27.0-33.0); Mean Platelet Volume 9.1 fL (9.4-12.3); Monocytes Absolute Auto 0.6 X10*3/uL (0.1-1.2); Monocytes Percent Auto 3.2 % (2-11); Neutrophils Absolute Auto 17.3 x10*3/uL (2.0-8.3); Neutrophils Percent Auto 94.2 % (45-73); Platelet Count 353 X10*3/uL (160-400); Red Blood Count 3.77 X10*6/uL (4.20-5.50); Red Cell Distribution Width 12.5 % (11.0-16.0); SCAN SMEAR FLAG 1; White Blood Count 18.4 X10*3/uL (4.8-10.8)
[2021-10-06 06:55] LABS: Alanine Aminotransferase 20 U/L (0-31); Albumin Level 3.5 g/dL (3.5-5.0); Alkaline Phosphatase 44 U/L (39-117); Anion Gap 10 (12-20); Aspartate Amino Transferase 23 U/L (5-31); Bilirubin Total 0.2 mg/dL (0.0-1.0); Blood Urea Nitrogen 5 mg/dL (9-16); Calcium 8.6 mg/dL (8.4-10.2); Carbon Dioxide 33 mmol/L (22-29); Chloride 96 mmol/L (96-108); Creatinine Clr Calc Pharmacy 77.4; Estimated Glomerular Filt Rate > 60; Glucose Fasting 137 mg/dL (60-99); Sodium 136 mmol/L (135-145); Total Protein 5.5 g/dL (6.5-8.0)
[2021-10-06 07:12] LABS: SLIDE REVIEW VERIFIED
[2021-10-06] MEDS: guaiFENesin LA 600 MG TAB.ER.12H PO ×2 (08:06→19:43)
[2021-10-06] MEDS: Doxycycline Hyclate 100 MG in 0.9 % Sodium Chloride 250 ML 166.67 MG IV ×2 (08:09→19:43)
[2021-10-06 08:13] LABS: Magnesium 1.7 mg/dL (1.6-2.6)
[2021-10-06] MEDS: Albuterol/Iprat 2.5/0.5MG 3 ML AMPUL.NEB INHALE ×4 (08:13→19:40)
[2021-10-06] MEDS: Potassium Chloride/H20 10 MEQ/100 ML PIGGYBACK 100 MEQ IV ×4 (10:04→14:06)
--- NOTE | 2021-10-06 13:42 | MHC.CLN ---
RE: CONSULT PT WITH MODERATE MALNUTRITION PT WITH 12% SIGNIFICANT WT LOSS X 6 MONTHS WITH POOR APPETITE. PT REPORTED SEVERE DRY THROAT CAUSING POOR APPETITE R/T WEARING OXYGEN FOR COPD. PT REPORTED SWALLOWING DIFFICULTY R/T DRY THROAT. PT ALSO NOTED RECEIVING LIQ MED FROM MD TO ADDRESS DRY THROAT PO INTAKE 50% X 1 MEAL-OBSERVE PT EATING LUNCH UPON INTERVIEW DIET RX: REGULAR-APPROPRIATE PT RECEPTIVE TO DRINKING ENSURE TO INCREASE KCALS (PREFERS VANESSA AND WILL TRY S/B FLAVOR) SUPP PROVIDES 700KCALS, 40G PROTEIN MONITOR PO INTAKE CLOSELY SEE ALSO FULL CLINICAL NUTRITION ASSESSMENT
--- NOTE | 2021-10-06 14:10 | MHC.CM.PN ---
EMR REVIEWED, PT'S CASE DISCUSSED W/HOSPITALIST AND ANTIC PT MAY WANT TO D/C HOME ON HOSPICE, HOSPITALIST WILL MEET W/PT AND PARTNER TO DISCUSS HOSPICE, CM WILL CONT TO FOLLOW D/C NEEDS.
--- NOTE | 2021-10-06 15:20 | P.PNIM_ITS ---
Subjective Subjective Date of Service: 10/06/21 Interval History: Still short of breath with minimal exertion. .. Much more comfortable today Review of Systems Denies chest pain Admit states shortness of breath at rest worse with minimal exertion Admits nausea; denies vomiting diarrhea Denies fever chills Physical Exam Vital Signs: Vital Signs: Last Vital Signs Temp 98.2 F 10/06/21 15:14 Pulse 95 10/06/21 15:14 Resp 18 10/06/21 15:14 BP 151/81 H 10/06/21 15:14 Pulse Ox 94 10/06/21 15:14 Oxygen Flow Rate 3 10/03/21 13:02 BMI result Body Mass Index 18.6 Const: Other: Awake alert able to speak in short sentences and a semi-Boudreaux's position HEENT: Other: Membranes dry Resp: Other: Extremely diminished all feels with and expiratory crackles at bases. No wheezes appreciated Cardio: Other: Tachycardic; no S4; positive S1-S2; no S3 murmurs rubs or gallops GI: Other: Soft nontender nondistended normoactive bowel sounds. No acute peritoneal signs Neuro: Other: Cranial nerves 2-12 grossly intact as tested; motor is 5/5 all extremities sensation intact cognition is anxious Extrem: Other: Trace pedal edema bilaterally Objective Data Active Medications Acetaminophen (Acetaminophen 325 Mg Tablet) 650 mg PO Q6H PRN PRN Reason: Pain, Mild (Pain Scale 1-3) Last Admin: 10/05/21 19:34 Dose: 650 mg Documented by: ROBBIE Albuterol/Ipratropium (Albuterol/Iprat 2.5/0.5mg 3 Ml Ampul.Neb) 3 ml INHALE RQ4H WHILE AWAKE [facility] Last Admin: 10/06/21 15:19 Dose: 3 ml Documented by: JASON Enoxaparin Sodium (Enoxaparin Sodium 40 Mg/0.4 Ml Syringe) 40 mg SUBCUT Q24H [facility] Last Admin: 10/05/21 19:34 Dose: 40 mg Documented by: ROBBIE Guaifenesin (Guaifenesin La 600 Mg Tab.Er.12h) 600 mg PO BID [facility] Last Admin: 10/06/21 08:06 Dose: 600 mg Documented by: LANE Guaifenesin/Dextromethorphan (Guaifenesin Dm 100/10/5 Ml 5 Ml Syrup) 5 ml PO Q4H PRN PRN Reason: cough Last Admin: 10/06/21 03:47 Dose: 5 ml Documented by: ROBBIE Ceftriaxone Sodium 1 gm/ (Sodium Chloride) 50 mls @ 100 mls/hr IV Q24H [facility] Last Infusion: 10/05/21 17:15 Dose: 0 mls/hr Documented by: VANESSA Doxycycline Hyclate 100 mg/ (Sodium Chloride) 250 mls @ 166.67 mls/hr IV Q12H [facility] Last Infusion: 10/06/21 10:16 Dose: 0 mls/hr Documented by: LANE Dextrose/Sodium Chloride (D51/2ns) 1,000 mls @ 100 mls/hr IVCONT .Q10H [facility] Last Infusion: 10/06/21 12:16 Dose: 0 mls/hr Documented by: LANE Lorazepam (Lorazepam 2 Mg/Ml Vial) 0.5 mg IVPUSH Q6H PRN PRN Reason: anxiety/restlessness Last Admin: 10/05/21 17:20 Dose: 0.5 mg Documented by: VANESSA Melatonin (Melatonin 3 Mg Tablet) 6 mg PO BEDTIME PRN PRN Reason: Insomnia Last Admin: 10/05/21 22:46 Dose: 6 mg Documented by: ROBBIE Methylprednisolone Sodium Succinate (Methylprednisolone Sod Succ 125 Mg/2 Ml Vial) 80 mg IVPUSH Q6H [facility] Last Admin: 10/06/21 11:28 Dose: 80 mg Documented by: LANE Morphine Sulfate (Morphine Sulfate 2 Mg/Ml Cartridge) 2 mg IVPUSH Q3H PRN; Protocol PRN Reason: anxiety/restlessness Last Admin: 10/04/21 14:10 Dose: 2 mg Documented by: KALPANA Omeprazole (Omeprazole 40 Mg Donny.) 40 mg PO DAILY@0630 [facility] Last Admin: 10/06/21 05:49 Dose: 40 mg Documented by: ROBBIE Pharmacy Consult (Consult Rx Perform Med Rec) 1 each MISCELLANE ONCE PRN PRN Reason: Consult order Sodium Chloride (0.9 % Sodium Chloride Flush 3 Ml Syringe) 3 ml IVFLUSH QSHIFT [facility] Last Admin: 10/05/21 22:46 Dose: 3 ml Documented by: ROBBIE Labs CBC & Chem 7: 10/06/21 06:01 10/06/21 06:01 Labs: Laboratory Results - last 24 hr 10/06/21 10/06/21 06:01 06:01 MCV 95.0 MCH 32.4 MCHC 34.1 RDW 12.5 Plt Count 353 MPV 9.1 L Immature Gran % (Auto) 0.9 H Neut % (Auto) 94.2 H Lymph % (Auto) 1.6 L [place] % (Auto) 3.2 Eos % (Auto) 0.0 Baso % (Auto) 0.1 Lymph # (Auto) 0.3 L [place] # (Auto) 0.6 Eos # (Auto) 0.0 Baso # (Auto) 0.0 Abs Immat Gran (auto) 0.16 H Absolute Neuts (auto) 17.3 H Absolute Nucleated RBC 0.000 Nucleated RBC % (auto) 0.0 Smear Tech's Comments VERIFIED Anion Gap 10 L Estim Creat Clear Calc 77.4 Estimated GFR > 60 Fasting Glucose 137 H Calcium 8.6 Magnesium 1.7 Total Bilirubin 0.2 AST 23 ALT 20 Alkaline Phosphatase 44 Total Protein 5.5 L Albumin 3.5 Assessment and Plan (1) Acute exacerbation of chronic obstructive airways disease: Status: Acute (2) Hypertension: Status: Acute (3) GERD (gastroesophageal reflux disease): Status: Acute Plan 61-year-old female with known history of COPD oxygen dependent at home presents with worsening shortness of breath that started acutely approximately 3 days ago. She does recount some scant sputum production however denies fever and chills. In the emergency room she had minimal response to a DuoNeb treatment and Solu-Medrol 1. COPD exacerbation/and states COPD -IV ceftriaxone/doxycycline; improved with therapies. Considering long-term options -DuoNebs q.4 hours while awake -methylprednisolone 60 mg q.6 -small dose IV Ativan p.r.n. -O2 to maintain sats greater or equal than 88% 2. Hypertension -improved; acceptable on current therapies -continue amlodipine -adjust therapies based on clinical response 3. GERD -continue omeprazole daily -add H2RA if breakthrough 4. Anxiety -restart oral meds in a.m. Lovenox Full code Patient will require hospitalization for treatment of COPD exacerbation that has failed outpatient therapies. This will include IV antibiotics and IV steroids and multiple nebulizer treatments. Quality Stroke Does the patient have a stroke diagnosis?: No VTE Prior VTE?: No VTE Risk Level:: Medical - moderate - high VTE Device Contraindication: Treatment Not Indicated VTE Drug Contraindication: N/A - Med Ordered
[2021-10-06] MEDS: cefTRIAXone sodium 1 GM in 0.9 % Sodium Chloride 50 ML IV (17:24)
[2021-10-06] MEDS: Melatonin 3 MG TABLET 6 MG PO (19:43)
[2021-10-06] MEDS: Enoxaparin Sodium 40 MG/0.4 ML SYRINGE SUBCUT (19:44)
[2021-10-06] MEDS: 0.9 % Sodium Chloride Flush 3 ML SYRINGE IVFLUSH (19:48)
[2021-10-07] VITALS (10 sets, daily range): BP systolic 136–163; BP diastolic 72–81; PULSE 73–110; RESP 12–18; TEMP 36–37.3; O2SAT 90–97
[2021-10-07] MEDS: methylPREDNISolone Sod Succ 125 MG/2 ML VIAL 80 MG IVPUSH ×4 (06:02→22:16)
[2021-10-07] MEDS: Omeprazole 40 MG CAPSULE.DR PO (06:02)
[2021-10-07] MEDS: Albuterol/Iprat 2.5/0.5MG 3 ML AMPUL.NEB INHALE ×4 (08:03→20:10)
[2021-10-07] MEDS: Doxycycline Hyclate 100 MG in 0.9 % Sodium Chloride 250 ML 166.67 MG IV ×2 (08:14→20:16)
[2021-10-07] MEDS: 0.9 % Sodium Chloride Flush 3 ML SYRINGE IVFLUSH ×3 (08:14→20:16)
[2021-10-07] MEDS: guaiFENesin LA 600 MG TAB.ER.12H PO ×2 (08:15→20:16)
[2021-10-07] MEDS: Acetaminophen 325 MG TABLET 650 MG PO (10:18)
--- NOTE | 2021-10-07 13:48 | P.PNIM_ITS ---
Subjective Subjective Date of Service: 10/07/21 Interval History: Improved. .. Much more comfortable today Review of Systems Denies chest pain Admit states shortness of breath at rest worse with minimal exertion Admits nausea; denies vomiting diarrhea Denies fever chills Physical Exam Vital Signs: Vital Signs: Last Vital Signs Temp 97.7 F 10/07/21 10:59 Pulse 88 10/07/21 11:33 Resp 18 10/07/21 11:33 BP 143/72 H 10/07/21 10:59 Pulse Ox 90 L 10/07/21 10:59 Oxygen Flow Rate 3 10/03/21 13:02 BMI result Body Mass Index 18.6 Const: Other: Awake alert able to speak in short sentences and a semi-Boudreaux's position HEENT: Other: Membranes dry Resp: Other: Extremely diminished all feels with and expiratory crackles at bases. No wheezes appreciated Cardio: Other: Tachycardic; no S4; positive S1-S2; no S3 murmurs rubs or gallops GI: Other: Soft nontender nondistended normoactive bowel sounds. No acute peritoneal signs Neuro: Other: Cranial nerves 2-12 grossly intact as tested; motor is 5/5 all extremities sensation intact cognition is anxious Extrem: Other: Trace pedal edema bilaterally Objective Data Active Medications Acetaminophen (Acetaminophen 325 Mg Tablet) 650 mg PO Q6H PRN PRN Reason: Pain, Mild (Pain Scale 1-3) Last Admin: 10/07/21 10:18 Dose: 650 mg Documented by: LUIS Albuterol/Ipratropium (Albuterol/Iprat 2.5/0.5mg 3 Ml Ampul.Neb) 3 ml INHALE RQ4H WHILE AWAKE [facility] Last Admin: 10/07/21 11:33 Dose: 3 ml Documented by: JASON Enoxaparin Sodium (Enoxaparin Sodium 40 Mg/0.4 Ml Syringe) 40 mg SUBCUT Q24H [facility] Last Admin: 10/06/21 19:44 Dose: 40 mg Documented by: JAY Guaifenesin (Guaifenesin La 600 Mg Tab.Er.12h) 600 mg PO BID [facility] Last Admin: 10/07/21 08:15 Dose: 600 mg Documented by: LUIS Guaifenesin/Dextromethorphan (Guaifenesin Dm 100/10/5 Ml 5 Ml Syrup) 5 ml PO Q4H PRN PRN Reason: cough Last Admin: 10/06/21 19:44 Dose: 5 ml Documented by: JAY Ceftriaxone Sodium 1 gm/ (Sodium Chloride) 50 mls @ 100 mls/hr IV Q24H [facility] Last Infusion: 10/06/21 19:49 Dose: 0 mls/hr Documented by: JAY Doxycycline Hyclate 100 mg/ (Sodium Chloride) 250 mls @ 166.67 mls/hr IV Q12H [facility] Last Infusion: 10/07/21 10:14 Dose: 0 mls/hr Documented by: LUIS Dextrose/Sodium Chloride (D51/2ns) 1,000 mls @ 100 mls/hr IVCONT .Q10H [facility] Last Admin: 10/07/21 12:56 Dose: Not Given Documented by: LUIS Non-Admin Reason: IV Running Lorazepam (Lorazepam 2 Mg/Ml Vial) 0.5 mg IVPUSH Q6H PRN PRN Reason: anxiety/restlessness Last Admin: 10/05/21 17:20 Dose: 0.5 mg Documented by: VANESSA Melatonin (Melatonin 3 Mg Tablet) 6 mg PO BEDTIME PRN PRN Reason: Insomnia Last Admin: 10/06/21 19:43 Dose: 6 mg Documented by: JAY Methylprednisolone Sodium Succinate (Methylprednisolone Sod Succ 125 Mg/2 Ml Vial) 80 mg IVPUSH Q6H [facility] Last Admin: 10/07/21 10:17 Dose: 80 mg Documented by: LUIS Morphine Sulfate (Morphine Sulfate 2 Mg/Ml Cartridge) 2 mg IVPUSH Q3H PRN; Protocol PRN Reason: anxiety/restlessness Last Admin: 10/04/21 14:10 Dose: 2 mg Documented by: KALPANA Omeprazole (Omeprazole 40 Mg Donny.) 40 mg PO DAILY@0630 [facility] Last Admin: 10/07/21 06:02 Dose: 40 mg Documented by: JAY Pharmacy Consult (Consult Rx Perform Med Rec) 1 each MISCELLANE ONCE PRN PRN Reason: Consult order Sodium Chloride (0.9 % Sodium Chloride Flush 3 Ml Syringe) 3 ml IVFLUSH QSHIFT [facility] Last Admin: 10/07/21 08:14 Dose: 3 ml Documented by: LUIS Labs CBC & Chem 7: 10/06/21 06:01 10/06/21 06:01 Assessment and Plan (1) Acute exacerbation of chronic obstructive airways disease: Status: Acute (2) GERD (gastroesophageal reflux disease): Status: Acute (3) Hypertension: Status: Acute Plan 61-year-old female with known history of COPD oxygen dependent at home presents with worsening shortness of breath that started acutely approximately 3 days ago. She does recount some scant sputum production however denies fever and chills. In the emergency room she had minimal response to a DuoNeb treatment and Solu-Medrol 1. COPD exacerbation/and states COPD -IV ceftriaxone/doxycycline; improved with therapies. -DuoNebs q.4 hours while awake -methylprednisolone 60 mg q.6 -small dose IV Ativan p.r.n. -O2 to maintain sats greater or equal than 88% -hospice consult under way 2. Hypertension -improved; acceptable on current therapies -continue amlodipine -adjust therapies based on clinical response 3. GERD -continue omeprazole daily -add H2RA if breakthrough 4. Anxiety -restart oral meds in a.m. Lovenox Full code Patient will require hospitalization for treatment of COPD exacerbation that has failed outpatient therapies. This will include IV antibiotics and IV steroids and multiple nebulizer treatments. Quality Stroke Does the patient have a stroke diagnosis?: No VTE Prior VTE?: No VTE Risk Level:: Medical - moderate - high VTE Device Contraindication: Treatment Not Indicated VTE Drug Contraindication: N/A - Med Ordered
[2021-10-07] MEDS: guaiFENesin DM 100/10/5 ML 5 ML SYRUP PO ×2 (14:16→20:16)
[2021-10-07] MEDS: cefTRIAXone sodium 1 GM in 0.9 % Sodium Chloride 50 ML IV (16:33)
[2021-10-07] MEDS: Enoxaparin Sodium 40 MG/0.4 ML SYRINGE SUBCUT (20:16)
[2021-10-07] MEDS: Melatonin 3 MG TABLET 6 MG PO (20:16)
[2021-10-08] VITALS (11 sets, daily range): BP systolic 142–171; BP diastolic 74–86; PULSE 75–88; RESP 17–20; TEMP 36.2–36.6; O2SAT 91–95
[2021-10-08] MEDS: methylPREDNISolone Sod Succ 125 MG/2 ML VIAL 80 MG IVPUSH ×4 (05:24→22:30)
[2021-10-08] MEDS: Omeprazole 40 MG CAPSULE.DR PO (05:25)
[2021-10-08] MEDS: Albuterol/Iprat 2.5/0.5MG 3 ML AMPUL.NEB INHALE ×4 (07:24→19:53)
[2021-10-08] MEDS: 0.9 % Sodium Chloride Flush 3 ML SYRINGE IVFLUSH ×4 (07:55→22:30)
[2021-10-08] MEDS: guaiFENesin LA 600 MG TAB.ER.12H PO ×2 (07:55→20:36)
[2021-10-08] MEDS: Doxycycline Hyclate 100 MG in 0.9 % Sodium Chloride 250 ML 166.67 MG IV ×2 (07:56→20:36)
[2021-10-08] MEDS: guaiFENesin DM 100/10/5 ML 5 ML SYRUP PO ×2 (07:58→16:25)
--- NOTE | 2021-10-08 13:19 | P.PNIM_ITS ---
Subjective Subjective Date of Service: 10/08/21 Interval History: No acute issues overnight. Breathing at baseline Review of Systems Denies chest pain Admit states shortness of breath at rest worse with minimal exertion Admits nausea; denies vomiting diarrhea Denies fever chills Physical Exam Vital Signs: Vital Signs: Last Vital Signs Temp 97.2 F 10/08/21 10:50 Pulse 81 10/08/21 11:12 Resp 18 10/08/21 11:12 BP 153/79 H 10/08/21 10:50 Pulse Ox 91 L 10/08/21 10:50 Oxygen Flow Rate 3 10/03/21 13:02 BMI result Body Mass Index 18.6 Const: Other: Awake alert able to speak in short sentences and a semi-Boudreaux's position HEENT: Other: Membranes dry Resp: Other: Extremely diminished all feels with and expiratory crackles at bases. No wheezes appreciated Cardio: Other: Tachycardic; no S4; positive S1-S2; no S3 murmurs rubs or gallops GI: Other: Soft nontender nondistended normoactive bowel sounds. No acute peritoneal signs Neuro: Other: Cranial nerves 2-12 grossly intact as tested; motor is 5/5 all extremities sen sation intact cognition is anxious Extrem: Other: Trace pedal edema bilaterally Objective Data Active Medications Acetaminophen (Acetaminophen 325 Mg Tablet) 650 mg PO Q6H PRN PRN Reason: Pain, Mild (Pain Scale 1-3) Last Admin: 10/07/21 10:18 Dose: 650 mg Documented by: LUIS Albuterol/Ipratropium (Albuterol/Iprat 2.5/0.5mg 3 Ml Ampul.Neb) 3 ml INHALE RQ4H WHILE AWAKE [facility] Last Admin: 10/08/21 11:12 Dose: 3 ml Documented by: ASHA Enoxaparin Sodium (Enoxaparin Sodium 40 Mg/0.4 Ml Syringe) 40 mg SUBCUT Q24H [facility] Last Admin: 10/07/21 20:16 Dose: 40 mg Documented by: JAY Guaifenesin (Guaifenesin La 600 Mg Tab.Er.12h) 600 mg PO BID [facility] Last Admin: 10/08/21 07:55 Dose: 600 mg Documented by: LUIS Guaifenesin/Dextromethorphan (Guaifenesin Dm 100/10/5 Ml 5 Ml Syrup) 5 ml PO Q4H PRN PRN Reason: cough Last Admin: 10/08/21 07:58 Dose: 5 ml Documented by: LUIS Ceftriaxone Sodium 1 gm/ (Sodium Chloride) 50 mls @ 100 mls/hr IV Q24H [facility] Last Infusion: 10/07/21 17:10 Dose: 0 mls/hr Documented by: LUIS Doxycycline Hyclate 100 mg/ (Sodium Chloride) 250 mls @ 166.67 mls/hr IV Q12H [facility] Last Infusion: 10/08/21 10:50 Dose: 0 mls/hr Documented by: LUIS Lorazepam (Lorazepam 2 Mg/Ml Vial) 0.5 mg IVPUSH Q6H PRN PRN Reason: anxiety/restlessness Last Admin: 10/05/21 17:20 Dose: 0.5 mg Documented by: VANESSA Melatonin (Melatonin 3 Mg Tablet) 6 mg PO BEDTIME PRN PRN Reason: Insomnia Last Admin: 10/07/21 20:16 Dose: 6 mg Documented by: JAY Methylprednisolone Sodium Succinate (Methylprednisolone Sod Succ 125 Mg/2 Ml Vial) 80 mg IVPUSH Q6H [facility] Last Admin: 10/08/21 12:23 Dose: 80 mg Documented by: LUIS Morphine Sulfate (Morphine Sulfate 2 Mg/Ml Cartridge) 2 mg IVPUSH Q3H PRN; Protocol PRN Reason: anxiety/restlessness Last Admin: 10/04/21 14:10 Dose: 2 mg Documented by: KALPANA Omeprazole (Omeprazole 40 Mg Donny.) 40 mg PO DAILY@0630 [facility] Last Admin: 10/08/21 05:25 Dose: 40 mg Documented by: NEHA Pharmacy Consult (Consult Rx Perform Med Rec) 1 each MISCELLANE ONCE PRN PRN Reason: Consult order Sodium Chloride (0.9 % Sodium Chloride Flush 3 Ml Syringe) 3 ml IVFLUSH QSHIFT [facility] Last Admin: 10/08/21 07:55 Dose: 3 ml Documented by: LUIS Labs CBC & Chem 7: 10/06/21 06:01 10/06/21 06:01 Assessment and Plan (1) Acute exacerbation of chronic obstructive airways disease: Status: Acute (2) GERD (gastroesophageal reflux disease): Status: Acute (3) Hypertension: Status: Acute Plan 61-year-old female with known history of COPD oxygen dependent at home presents with worsening shortness of breath that started acutely approximately 3 days ago. She does recount some scant sputum production however denies fever and chills. In the emergency room she had minimal response to a DuoNeb treatment and Solu-Medrol 1. COPD exacerbation/and states COPD -IV ceftriaxone/doxycycline; home to complete a course of doxy -DuoNebs q.4 hours while awake -methylprednisolone 60 mg q.6 -small dose IV Ativan p.r.n. -O2 to maintain sats greater or equal than 88% -hospice consult under way 2. Hypertension -improved; acceptable on current therapies -continue amlodipine -adjust therapies based on clinical response 3. GERD -continue omeprazole daily -add H2RA if breakthrough 4. Anxiety -restart oral meds in a.m. Lovenox Full code Patient will require hospitalization for treatment of COPD exacerbation that has failed outpatient therapies. This will include IV antibiotics and IV steroids a nd multiple nebulizer treatments. Quality Stroke Does the patient have a stroke diagnosis?: No VTE Prior VTE?: No VTE Risk Level:: Medical - moderate - high VTE Device Contraindication: Treatment Not Indicated VTE Drug Contraindication: N/A - Med Ordered
[2021-10-08] MEDS: cefTRIAXone sodium 1 GM in 0.9 % Sodium Chloride 50 ML IV (16:48)
[2021-10-08] MEDS: Melatonin 3 MG TABLET 6 MG PO (20:36)
[2021-10-08] MEDS: Enoxaparin Sodium 40 MG/0.4 ML SYRINGE SUBCUT (20:37)
[2021-10-09] VITALS (9 sets, daily range): BP systolic 143–165; BP diastolic 8–82; PULSE 71–86; RESP 12–18; TEMP 36.6–37.7; O2SAT 91–97
[2021-10-09] MEDS: methylPREDNISolone Sod Succ 125 MG/2 ML VIAL 80 MG IVPUSH ×4 (06:02→23:27)
[2021-10-09] MEDS: Omeprazole 40 MG CAPSULE.DR PO (06:02)
[2021-10-09] MEDS: Albuterol/Iprat 2.5/0.5MG 3 ML AMPUL.NEB INHALE ×4 (07:38→19:54)
--- NOTE | 2021-10-09 07:54 | P.CDIC_ITS ---
CDI Concurrent Query Documentation Clarification: PHYSICIAN'S DOCUMENTATION REQUEST Date of Query: 10/09/21 0755 Patient Name: Dora Amos Admit Date: 10/03/21 Dear Doctor, A review of the medical record indicates additional documentation may be needed. Please review below and update the documentation accordingly. Clinical Indicators: Height: [] 5'6 Weight: [] 52.163 BMI: [] 18.6 Other Clinical Notes Supporting Significance of the BMI: Risk Factors/Clinical Indicators/Treatments Per Clinical Nutrition Note 10/09/21: Level 3 risk factor 90% or < DBW, unplanned weight loss > 10% in 6 months IBW 130 trigger for 12% significant weight loss x 6 month Body fat well nourished Muscle mass well nourished Moderate malnutrition related to poor appetite complains of severe dry throat If possible, please provide an associated diagnosis related to the abnormal BMI, such as: For a BMI <= 19: * Underweight * Weight loss * Cachexia * Anorexia * Malnutrition (mild, moderate, severe) Or: * BMI is not significant * Other (please specify) * Unable to determine Use of terms such as suspected, likely, concern for, or probable (associated with a specific diagnosis that is being evaluated, monitored, or treated as if it exists) are acceptable and can be coded in the inpatient setting, when documented at the time of discharge. Thank you, Candy Jimenez [insert CDI's credentials] Extension: [4-digit phone extension] Please use your independent medical judgment in providing your response. 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
[2021-10-09] MEDS: guaiFENesin LA 600 MG TAB.ER.12H PO ×2 (08:32→20:54)
[2021-10-09] MEDS: Doxycycline Hyclate 100 MG in 0.9 % Sodium Chloride 250 ML 166.67 MG IV ×2 (08:32→20:53)
[2021-10-09] MEDS: 0.9 % Sodium Chloride Flush 3 ML SYRINGE IVFLUSH ×2 (08:33→17:23)
[2021-10-09] MEDS: guaiFENesin DM 100/10/5 ML 5 ML SYRUP PO (11:10)
--- NOTE | 2021-10-09 11:26 | MHC.CM.PN ---
PT AND HAD A HOSPICE CONSULT THIS MORNING AND ARE AGREEABLE TO SERVICES. PER [facility], THEY WILL BE ABLE TO PROVIDE SOC TOMORROW AFTERNOON. DC TOMORROW, HOME WITH [facility] PT WILL NEED SCRIPTS FOR COMFORT MEDS TO TRANSPORT (WILL NEED PORTABLE O2 TANK)
--- NOTE | 2021-10-09 14:58 | MHC.CLN ---
F/U DIET= REGULAR-APPROPRIATE ENSURE BID PROVIDES ADDITIONAL 700 KCALS, 40 G PROTEIN. INTAKE X 4 DAYS IS 25-100%, WITH MOST MEALS 50% OR GREATER. MONITOR PO INTAKE CLOSELY.
--- NOTE | 2021-10-09 16:14 | P.DS_ITS ---
DS: Providers Provider Date of Service: 10/09/21 Date of admission: 10/03/21 18:07 Primary care physician: Ellen Bay MD DS: Diagnosis Discharge Diagnosis (1) Acute exacerbation of chronic obstructive airways disease: Status: Acute (2) GERD (gastroesophageal reflux disease): Status: Acute (3) Hypertension: Status: Acute DS: Summary Hospital Course Hospital Course: from admission H+P by hospitalist Spencer Prescott DO, 10/03/21: Patient presents to the emergency department for evaluation of worsening shortness of breath and feelings of COPD exacerbation x2 days.? She states that typically she uses oxygen only during activity, however over the past 2 days she has been needing to use a even while at rest.? She additionally has pedal edema. She? is taking her Spiriva and ProAir inhalers as prescribed, using her DuoNeb p.r.n. budesonide updrafts but has not noticed much improvement.? She is prescribed prednisone 7 mg every other day in addition to azithromycin 250 mg every other day. ER course Chest x-ray demonstrates mild bronchiectasis; given a dose of ceftriaxone, Solu- Medrol 120 mg and DuoNeb with minimal effect.? Patient sat 90% on 3.5 L which she uses at home.? White count is mildly elevated at 12.7 otherwise other diagnostics are unremarkable.? She is COVID negative Patient was admitted to the hospitalist service and treated with high-dose Solu- Medrol ceftriaxone and doxycycline. She made minimal improvement over the next several days, though more comfortable. After a long discussion with the patient and her partner, she was discharged home with hospice services in accordance with her care plan goals. Time Spent with Patient Time attestation: Total time spent providing and/or coordinating discharge services: Discharge coordination time: Greater than 30 minutes Quality: Safe Use of Opioids Does Pt have an Active Cancer Diagnosis on the Problem List?: No Quality: Stroke Does the patient have a stroke diagnosis?: No Physical Exam Vital Signs: Vital Signs: Last Vital Signs Temp 98.7 F 10/09/21 15:28 Pulse 76 10/09/21 15:28 Resp 14 10/09/21 15:28 BP 143/70 H 10/09/21 15:28 Pulse Ox 94 10/09/21 15:28 Oxygen Flow Rate 3 10/03/21 13:02 BMI result Body Mass Index 18.6 Discharge Plan Discharge Patient Disposition: Hospice - Home Discharge Diagnosis: End stage COPD Referrals: Krissy ALCANTARA [Outside] - 1 Week Ellen Bay MD [Primary Care Provider] - 1 Week Discharge Medications: New omeprazole 40 mg Capsule,Delayed Release(Dr/Ec) 40 mg PO DAILY@0630 Qty: 30 0RF prednisone 10 mg tablet See Rx Instructions .Route .COMPLEX Qty: 45 0RF Rx Instructions: 10 mg orally; 5 tabs p.o. daily x3 days; 4 tabs p.o. daily x3 days; 3 tabs daily x3 days; 2 tabs daily x3 days; 1 tab daily x3 days morphine concentrate 100 mg/5 mL (20 mg/mL) Solution 5 mg PO Q3H PRN (Reason: pain/comfort) 15 Days Qty: 30 0RF lorazepam 0.5 mg Tablet 0.5 mg PO Q6H PRN (Reason: anxiety/restlessness) 4 Days Qty: 16 0RF Continued tiotropium bromide 2.5 mcg/actuation mist 2 puff inhalation DAILY 90 Days Qty: 3 3RF ipratropium-albuterol 0.5 mg-3 mg(2.5 mg base)/3 mL solution for nebulization 3 ml inhalation QID 90 Days Qty: 1080 3RF albuterol sulfate 90 mcg/actuation HFA aerosol inhaler 2 puff inhalation Q6H PRN (Reason: shortness of breath or wheezing) 90 Days Qty: 3 3RF amlodipine 10 mg tablet 10 mg PO DAILY 0RF omeprazole 20 mg capsule,delayed release(DR/EC) 20 mg PO DAILY 0RF megestrol 400 mg/10 mL (10 mL) suspension 200 mg PO BID 30 Days Qty: 300 5RF Magic Mouthwash Diphen/Lido/Antacid 1:1:1 240 mL suspension 5 ml PO Q6H PRN (Reason: sore throat) 30 Days Qty: 240 5RF Rx Instructions: Lidocaine Viscous 2 % 80mL; diphenhydramine 12.5 mg/5 mL 80mL; aluminum-mag hydrox-simeth [id number]/5mL 80mL Discontinued budesonide 0.5 mg/2 mL suspension for nebulization 0.5 mg inhalation BID 90 Days Qty: 360 3RF buspirone 5 mg tablet 1 tab PO TID 0RF prednisone 1 mg tablet 2 mg PO Q2D 0RF Label Comments: take #2 2.5 mg tablets with #2 1 mg tablets for total dose of 7 mg prednisone 2.5 mg tablet 5 mg PO Q2D 0RF Label Comments: take #2 2.5 mg tablets with #2 1 mg tablets for total dose of 7 mg azithromycin 250 mg tablet 250 mg PO MOWEFR 0RF alendronate 35 mg tablet 35 mg PO GREEN 0RF Rx Instructions: Saturday bupropion HCl 300 mg tablet extended release 24 hr 300 mg PO DAILY 0RF Discharge Orders: Discharge Order (Routine); Ordered 10/10/21 Ordered By: Qasim Haque Diet: advance to usual diet Activity on Discharge: As tolerated Stand Alone Forms: Patient Portal Discharge page Care Plan Goals: Hospice care Health Concerns: Home with hospice Plan of Treatment: Palliative care as per hospice Hospice medications prescribed Oxygen for comfort Taper prednisone as follows: 50 mg daily x 3d, then 40 mg daily x 3d, then 30 mg daily x 3d, then 20 mg daily x 3d, then 10 mg daily x 3d Assessment: See discharge summary Patient Instructions: Hospice Care (GEN) Discharge Date/Time: 10/10/21 13:26
--- NOTE | 2021-10-09 16:16 | P.PNIM_ITS ---
Subjective Subjective Date of Service: 10/09/21 Interval History: No acute issues overnight. Breathing at baseline Review of Systems Denies chest pain Admit states shortness of breath at rest worse with minimal exertion Admits nausea; denies vomiting diarrhea Denies fever chills Physical Exam Vital Signs: Vital Signs: Last Vital Signs Temp 98.7 F 10/09/21 15:28 Pulse 76 10/09/21 15:28 Resp 14 10/09/21 15:28 BP 143/70 H 10/09/21 15:28 Pulse Ox 94 10/09/21 15:28 Oxygen Flow Rate 3 10/03/21 13:02 BMI result Body Mass Index 18.6 Const: Other: Awake alert able to speak in short sentences and a semi-Bourdeaux's position HEENT: Other: Membranes dry Resp: Other: Extremely diminished all feels with and expiratory crackles at bases. No wheezes appreciated Cardio: Other: Tachycardic; no S4; positive S1-S2; no S3 murmurs rubs or gallops GI: Other: Soft nontender nondistended normoactive bowel sounds. No acute peritoneal signs Neuro: Other: Cranial nerves 2-12 grossly intact as tested; motor is 5/5 all extremities sen sation intact cognition is anxious Extrem: Other: Trace pedal edema bilaterally Objective Data Active Medications Acetaminophen (Acetaminophen 325 Mg Tablet) 650 mg PO Q6H PRN PRN Reason: Pain, Mild (Pain Scale 1-3) Last Admin: 10/07/21 10:18 Dose: 650 mg Documented by: LUIS Albuterol/Ipratropium (Albuterol/Iprat 2.5/0.5mg 3 Ml Ampul.Neb) 3 ml INHALE RQ4H WHILE AWAKE [facility] Last Admin: 10/09/21 15:14 Dose: 3 ml Documented by: ASHA Enoxaparin Sodium (Enoxaparin Sodium 40 Mg/0.4 Ml Syringe) 40 mg SUBCUT Q24H [facility] Last Admin: 10/08/21 20:37 Dose: 40 mg Documented by: JAY Guaifenesin (Guaifenesin La 600 Mg Tab.Er.12h) 600 mg PO BID [facility] Last Admin: 10/09/21 08:32 Dose: 600 mg Documented by: ROSA Guaifenesin/Dextromethorphan (Guaifenesin Dm 100/10/5 Ml 5 Ml Syrup) 5 ml PO Q4H PRN PRN Reason: cough Last Admin: 10/09/21 11:10 Dose: 5 ml Documented by: ROSA Ceftriaxone Sodium 1 gm/ (Sodium Chloride) 50 mls @ 100 mls/hr IV Q24H [facility] Last Infusion: 10/08/21 17:22 Dose: 0 mls/hr Documented by: LUIS Doxycycline Hyclate 100 mg/ (Sodium Chloride) 250 mls @ 166.67 mls/hr IV Q12H [facility] Last Infusion: 10/09/21 12:10 Dose: 0 mls/hr Documented by: ROSA Melatonin (Melatonin 3 Mg Tablet) 6 mg PO BEDTIME PRN PRN Reason: Insomnia Last Admin: 10/08/21 20:36 Dose: 6 mg Documented by: JAY Methylprednisolone Sodium Succinate (Methylprednisolone Sod Succ 125 Mg/2 Ml Vial) 80 mg IVPUSH Q6H [facility] Last Admin: 10/09/21 11:10 Dose: 80 mg Documented by: ROSA Morphine Sulfate (Morphine Sulfate 2 Mg/Ml Cartridge) 2 mg IVPUSH Q3H PRN; Protocol PRN Reason: anxiety/restlessness Last Admin: 10/04/21 14:10 Dose: 2 mg Documented by: KALPANA Omeprazole (Omeprazole 40 Mg Capsule.) 40 mg PO DAILY@0630 [facility] Last Admin: 10/09/21 06:02 Dose: 40 mg Documented by: JAY Pharmacy Consult (Consult Rx Perform Med Rec) 1 each MISCELLANE ONCE PRN PRN Reason: Consult order Sodium Chloride (0.9 % Sodium Chloride Flush 3 Ml Syringe) 3 ml IVFLUSH QSHIFT [facility] Last Admin: 10/09/21 08:33 Dose: 3 ml Documented by: ROSA Labs CBC & Chem 7: 10/06/21 06:01 10/06/21 06:01 Assessment and Plan (1) End stage COPD: Status: Acute Plan 61-year-old female with known history of COPD oxygen dependent at home presents with worsening shortness of breath that started acutely approximately 3 days ago. She does recount some scant sputum production however denies fever and chills. In the emergency room she had minimal response to a DuoNeb treatment and Solu-Medrol 1.End Stage COPD -prednisone taper -complete course of doxycycline -hospice care 2. Hypertension -improved; acceptable on current therapies -continue amlodipine -adjust therapies based on clinical response 3. GERD -continue omeprazole daily -add H2RA if breakthrough 4. Anxiety -restart oral meds in a.m. [facility] Quality Stroke Does the patient have a stroke diagnosis?: No VTE Prior VTE?: No VTE Risk Level:: Medical - moderate - high VTE Device Contraindication: Treatment Not Indicated VTE Drug Contraindication: N/A - Med Ordered
[2021-10-09] MEDS: cefTRIAXone sodium 1 GM in 0.9 % Sodium Chloride 50 ML IV (17:23)
[2021-10-09] MEDS: Enoxaparin Sodium 40 MG/0.4 ML SYRINGE SUBCUT (20:54)
[2021-10-10] VITALS: BP 157/72; PULSE 62; RESP 17; TEMP 36.4; O2SAT 94
[2021-10-10 03:14] VITALS: BP 147/69; PULSE 75; RESP 17; TEMP 36.3; O2SAT 95
[2021-10-10] MEDS: methylPREDNISolone Sod Succ 125 MG/2 ML VIAL 80 MG IVPUSH ×2 (05:26→11:00)
[2021-10-10] MEDS: Omeprazole 40 MG CAPSULE.DR PO (05:27)
[2021-10-10 08:00] VITALS: BP 162/87; PULSE 62; RESP 18; TEMP 36.9; O2SAT 92
[2021-10-10] MEDS: guaiFENesin LA 600 MG TAB.ER.12H PO (08:21)
[2021-10-10] MEDS: 0.9 % Sodium Chloride Flush 3 ML SYRINGE IVFLUSH (08:21)
[2021-10-10] MEDS: Doxycycline Hyclate 100 MG in 0.9 % Sodium Chloride 250 ML 166.67 MG IV (08:21)
[2021-10-10 08:39] VITALS: PULSE 73; RESP 16; O2SAT 93
[2021-10-10] MEDS: Albuterol/Iprat 2.5/0.5MG 3 ML AMPUL.NEB INHALE ×2 (08:39→11:40)
[2021-10-10 11:41] VITALS: PULSE 73; RESP 16; O2SAT 95
--- NOTE | 2021-10-10 11:55 | P.DS_ITS ---
DS: Providers Provider Date of Service: 10/10/21 Date of admission: 10/03/21 18:07 Date of discharge: 10/10/21 Primary care physician: Ellen Bay MD DS: Diagnosis Discharge Diagnosis (1) End stage COPD: Status: Acute (2) Acute exacerbation of chronic obstructive airways disease: Status: Acute DS: Summary Hospital Course Hospital Course: from admission H+P by hospitalist Spencer Prescott DO, 10/03/21: Patient presents to the emergency department for evaluation of worsening shortness of breath and feelings of COPD exacerbation x2 days.? She states that typically she uses oxygen only during activity, however over the past 2 days she has been needing to use a even while at rest.? She additionally has pedal edema. She? is taking her Spiriva and ProAir inhalers as prescribed, using her DuoNeb p .r.n. budesonide updrafts but has not noticed much improvement.? She is prescribed prednisone 7 mg every other day in addition to azithromycin 250 mg every other day. ER course Chest x-ray demonstrates mild bronchiectasis; given a dose of ceftriaxone, Solu- Medrol 120 mg and DuoNeb with minimal effect.? Patient sat 90% on 3.5 L which she uses at home.? White count is mildly elevated at 12.7 otherwise other diagnostics are unremarkable.? She is COVID negative Patient was admitted to the hospitalist service and treated with high-dose Solu- Medrol ceftriaxone and doxycycline. She made minimal improvement over the next several days, though more comfortable. After a long discussion with the patient and her partner, she was discharged home with hospice services in accordance with her care plan goals. Time Spent with Patient Time attestation: Total time spent providing and/or coordinating discharge services: 35 Discharge coordination time: Greater than 30 minutes Quality: Safe Use of Opioids Does Pt have an Active Cancer Diagnosis on the Problem List?: No Quality: Stroke Does the patient have a stroke diagnosis?: No Physical Exam Vital Signs: Vital Signs: Last Vital Signs Temp 98.5 F 10/10/21 08:00 Pulse 73 10/10/21 11:41 Resp 16 10/10/21 11:41 BP 162/87 H 10/10/21 08:00 Pulse Ox 92 10/10/21 08:00 Oxygen Flow Rate 3 10/03/21 13:02 BMI result Body Mass Index 18.6 Gen: chronically ill-appearing, weak HEENT: sclera anicteric, moist mucus membranes Neck: supple Lungs: diminished throughout, scattered crackles and wheezes Heart: regular rate and rhythm, no murmurs Abd: soft, non-tender, non-distended Ext: no edema Skin: warm/well-perfused Neuro: alert and oriented x3, no focal findings Psych: appropriate affect DS: Data Data Completed and Pending Completed studies during hospitalization [Text1]: Laboratory Results WBC 18.4 X10*3/uL (4.8-10.8) H 10/06/21 06:01 RBC 3.77 X10*6/uL (4.20-5.50) L 10/06/21 06:01 Hgb 12.2 g/dl (12.0-16.0) 10/06/21 06:01 Hct 35.8 % (37.0-47.0) L 10/06/21 06:01 MCV 95.0 fL (80.0-98.0) 10/06/21 06:01 MCH 32.4 pg (27.0-33.0) 10/06/21 06:01 MCHC 34.1 g/dl (31.0-35.0) 10/06/21 06:01 RDW 12.5 % (11.0-16.0) 10/06/21 06:01 Plt Count 353 X10*3/uL (160-400) 10/06/21 06:01 MPV 9.1 fL (9.4-12.3) L 10/06/21 06:01 Immature Gran % (Auto) 0.9 % (0.0-0.4) H 10/06/21 06:01 Neut % (Auto) 94.2 % (45-73) H 10/06/21 06:01 Lymph % (Auto) 1.6 % (20-40) L 10/06/21 06:01 Douglas % (Auto) 3.2 % (2-11) 10/06/21 06:01 Eos % (Auto) 0.0 % (0-4) 10/06/21 06:01 Baso % (Auto) 0.1 % (0-2) 10/06/21 06:01 Lymph # (Auto) 0.3 X10*3/uL (1.2-4.9) L 10/06/21 06:01 Douglas # (Auto) 0.6 X10*3/uL (0.1-1.2) 10/06/21 06:01 Eos # (Auto) 0.0 X10*3/uL (0.0-0.4) 10/06/21 06:01 Baso # (Auto) 0.0 X10*3/uL (0.0-0.2) 10/06/21 06:01 Abs Immat Gran (auto) 0.16 X10*3/uL (0.00-0.03) H 10/06/21 06:01 Absolute Neuts (auto) 17.3 x10*3/uL (2.0-8.3) H 10/06/21 06:01 Absolute Nucleated RBC 0.000 X10*3/uL (0.0-0.012) 10/06/21 06:01 Nucleated RBC % (auto) 0.0 /100WBC (0.0-0.2) 10/06/21 06:01 Smear Tech's Comments VERIFIED 10/06/21 06:01 Sodium 136 mmol/L (135-145) 10/06/21 06:01 Potassium 3.0 mmol/L (3.3-5.1) L D 10/06/21 06:01 Chloride 96 mmol/L (96-108) 10/06/21 06:01 Carbon Dioxide 33 mmol/L (22-29) H 10/06/21 06:01 Anion Gap 10 (12-20) L 10/06/21 06:01 BUN 5 mg/dL (9-16) L 10/06/21 06:01 Creatinine 0.62 mg/dL (0.5-1.4) 10/06/21 06:01 Estim Creat Clear Calc 77.4 10/06/21 06:01 Estimated GFR > 60 10/06/21 06:01 Random Glucose 101 mg/dL (60-115) 10/03/21 14:09 Fasting Glucose 137 mg/dL (60-99) H 10/06/21 06:01 Calcium 8.6 mg/dL (8.4-10.2) 10/06/21 06:01 Magnesium 1.7 mg/dL (1.6-2.6) 10/06/21 06:01 Total Bilirubin 0.2 mg/dL (0.0-1.0) 10/06/21 06:01 AST 23 U/L (5-31) 10/06/21 06:01 ALT 20 U/L (0-31) 10/06/21 06:01 Alkaline Phosphatase 44 U/L (39-117) 10/06/21 06:01 Troponin I High Sens < 3.5 ng/L (<3.5-17.0) 10/03/21 14:09 B-Natriuretic Peptide 21 pg/mL (<100) 10/03/21 14:09 Total Protein 5.5 g/dL (6.5-8.0) L 10/06/21 06:01 Albumin 3.5 g/dL (3.5-5.0) 10/06/21 06:01 COVID-19 ([facility]) Negative (Negative) 10/03/21 14:09 COVID-19 Clin Com See Note 10/03/21 14:09 Impressions Chest X-Ray 10/03/21 13:16 IMPRESSION: Well-inflated lungs. Mild bronchiectasis and bronchial wall thickening at the lung bases, left greater than right. This may be increased at the left lung base compared to previous exams. Discharge Plan Discharge Patient Disposition: Hospice - Home Discharge Diagnosis: End stage COPD Referrals: Ellen Bay MD [Primary Care Provider] - 1 Week Discharge Medications: New omeprazole 40 mg Capsule,Delayed Release(Dr/Ec) 40 mg PO DAILY@0630 Qty: 30 0RF prednisone 10 mg tablet See Rx Instructions .Route .COMPLEX Qty: 45 0RF Rx Instructions: 10 mg orally; 5 tabs p.o. daily x3 days; 4 tabs p.o. daily x3 days; 3 tabs daily x3 days; 2 tabs daily x3 days; 1 tab daily x3 days morphine concentrate 100 mg/5 mL (20 mg/mL) Solution 5 mg PO Q3H PRN (Reason: pain/comfort) 15 Days Qty: 30 0RF lorazepam 0.5 mg Tablet 0.5 mg PO Q6H PRN (Reason: anxiety/restlessness) 4 Days Qty: 16 0RF Continued tiotropium bromide 2.5 mcg/actuation mist 2 puff inhalation DAILY 90 Days Qty: 3 3RF ipratropium-albuterol 0.5 mg-3 mg(2.5 mg base)/3 mL solution for nebulization 3 ml inhalation QID 90 Days Qty: 1080 3RF albuterol sulfate 90 mcg/actuation HFA aerosol inhaler 2 puff inhalation Q6H PRN (Reason: shortness of breath or wheezing) 90 Days Qty: 3 3RF amlodipine 10 mg tablet 10 mg PO DAILY 0RF omeprazole 20 mg capsule,delayed release(DR/EC) 20 mg PO DAILY 0RF megestrol 400 mg/10 mL (10 mL) suspension 200 mg PO BID 30 Days Qty: 300 5RF Magic Mouthwash Diphen/Lido/Antacid 1:1:1 240 mL suspension 5 ml PO Q6H PRN (Reason: sore throat) 30 Days Qty: 240 5RF Rx Instructions: Lidocaine Viscous 2 % 80mL; diphenhydramine 12.5 mg/5 mL 80mL; aluminum-mag hydrox-simeth [id number]/5mL 80mL Discontinued budesonide 0.5 mg/2 mL suspension for nebulization 0.5 mg inhalation BID 90 Days Qty: 360 3RF buspirone 5 mg tablet 1 tab PO TID 0RF prednisone 1 mg tablet 2 mg PO Q2D 0RF Label Comments: take #2 2.5 mg tablets with #2 1 mg tablets for total dose of 7 mg prednisone 2.5 mg tablet 5 mg PO Q2D 0RF Label Comments: take #2 2.5 mg tablets with #2 1 mg tablets for total dose of 7 mg azithromycin 250 mg tablet 250 mg PO MOWEFR 0RF alendronate 35 mg tablet 35 mg PO GREEN 0RF Rx Instructions: Saturday bupropion HCl 300 mg tablet extended release 24 hr 300 mg PO DAILY 0RF Discharge Orders: Discharge Order (Routine); Ordered 10/10/21 Ordered By: Qasim Haque Diet: advance to usual diet Activity on Discharge: As tolerated Stand Alone Forms: Patient Portal Discharge page Care Plan Goals: Hospice care Health Concerns: Home with hospice Plan of Treatment: Palliative care as per hospice Hospice medications prescribed Oxygen for comfort Taper prednisone as follows: 50 mg daily x 3d, then 40 mg daily x 3d, then 30 mg daily x 3d, then 20 mg daily x 3d, then 10 mg daily x 3d Assessment: See discharge summary Patient Instructions: Hospice Care (GEN)
--- NOTE | 2021-10-10 12:04 | MHC.CM.PN ---
Patient has been medically cleared for dc to home today with Hospice.[facility] is aware of dc time.Patient's is here to transport Patient home at 1PM. is aware of dc time and states that everything has been completed.
== END 2021-10-10 13:26 | disposition hospice, home (50) | DRG 140 ==
LOC: HO.ED 15:44 → HO.EDOVER 18:28 → HO.S3 10-04 17:05
PROVIDERS: Nurse Practitioner Family; Admitting Provider Hospitalist; Emergency Provider Emergency Medicine; PCP Internal Medicine; Visit Provider Family Medicine
DX: J44.1 Chronic obstructive pulmonary disease with (acute) exacerbation (principal); J96.10 Chronic respiratory failure, unspecified whether with hypoxia or hypercapnia; Z99.81 Dependence on supplemental oxygen; F41.9 Anxiety disorder, unspecified; Z51.5 Encounter for palliative care; I10 Essential (primary) hypertension; R63.0 Anorexia; Z68.1 Body mass index [BMI] 19.9 or less, adult; K21.9 Gastro-esophageal reflux disease without esophagitis; Z20.822 Contact with and (suspected) exposure to COVID-19; Z87.891 Personal history of nicotine dependence; Z79.899 Other long term (current) drug therapy
CPT/HCPCS: 36415; 71045; 80048; 80053; 83735; 83880; 84484; 85025; 87635; 93005; 94640; 94644; 96365; 96375; 99285; J0696; J1650; J2060; J2270; J2930